=== PATIENT | male | born 1945 | race Caucasian/White ===

== ENCOUNTER → 2020-10-28 12:19 | Outpatient (BNVA) | payer MEDICARE, SELFPAY | PROVIDERS: Visit Provider Internal Medicine Cardiovascular Disease | DX: Z45.02 Encounter for adjustment and management of automatic implantable cardiac defibrillator (principal); I50.22 Chronic systolic (congestive) heart failure; I25.5 Ischemic cardiomyopathy; I25.10 Atherosclerotic heart disease of native coronary artery without angina pectoris; Z95.2 Presence of prosthetic heart valve | CPT/HCPCS: 99212 ==

== ENCOUNTER 2020-11-05 09:36 | Outpatient (REF) | payer MEDICARE, SELFPAY ==
[2020-11-05 10:21] LABS: Hematocrit 36.5 % (42-52); Hemoglobin 11.4 g/dl (14.0-18.0); Mean Corpuscular HGB Conc 31.2 g/dl (31.0-36.0); Mean Corpuscular Hemoglobin 28.8 pg (27.0-33.0); Mean Corpuscular Volume 92.2 fL (80-98); Mean Platelet Volume 9.6 fL (9.4-12.4); Platelet Count 159 X10*3/uL (160-400); Red Blood Count 3.96 X10*6/uL (4.60-5.80); Red Cell Distribution Width 13.7 % (11.0-16.0); White Blood Count 6.8 X10*3/uL (4.8-10.8)
[2020-11-05 10:44] LABS: Alanine Aminotransferase 12 U/L (0-40); Alkaline Phosphatase 133 U/L (39-117); Anion Gap 14 (12-20); Aspartate Amino Transferase 15 U/L (5-37); Bilirubin Direct 0.2 mg/dL (0.0-0.5); Bilirubin Total 0.5 mg/dL (0.0-1.0); Blood Urea Nitrogen 39 mg/dL (9-16); Calcium 8.1 mg/dL (8.4-10.2); Carbon Dioxide 20 mmol/L (22-29); Chloride 112 mmol/L (96-108); Cholesterol 168 mg/dL; Estimated Glomerular Filt Rate 24; Glucose Random 100 mg/dL (60-115); HDL Cholesterol 48 mg/dL; LDL Cholesterol Calculated 97 mg/dl; Potassium 4.8 mmol/l (3.3-5.1); Sodium 141 mmol/L (135-145); Total Protein 7.2 g/dL (6.5-8.0); Triglycerides 117 mg/dL
[2020-11-05 11:23] LABS: Phenytoin Dilantin < 0.5 ug/mL (10.0-20.0)
== END 2020-11-05 09:37 | disposition home or self-care (01) ==
LOC: HO.LAB 09:36
DX: I10 Essential (primary) hypertension (principal); E78.5 Hyperlipidemia, unspecified; R56.9 Unspecified convulsions
CPT/HCPCS: 36415; 80053; 80061; 80076; 80185; 82248; 85027

== ENCOUNTER 2021-03-16 19:40 | Emergency (ER) | payer MEDICARE, SELFPAY ==
[2021-03-16 19:52] VITALS: BP 186/85; PULSE 95; RESP 18; TEMP 37.2; O2SAT 98; BMI 24.3
[2021-03-16 21:28] VITALS: BP 167/87; PULSE 84; RESP 18; TEMP 36.9; O2SAT 98
--- NOTE | 2021-03-16 21:50 | ED.GENADULT ---
HPI - General Adult General Chief complaint: General Medical Stated complaint: Shingles Time Seen by Provider: 03/16/21 21:26 Source: patient Mode of arrival: ambulatory Limitations: no limitations History of Present Illness HPI narrative: Patient comes to emergency room complaining of a vesicular rash in his left forearm. Patient states 4-5 days ago it started out with a small vesicle, then the vesicles started spreading, patient states it is very painful and tingly. Patient denies fever or chills. Related Data Home Medications Medication Instructions Recorded Confirmed aspirin 81 mg tablet,delayed 81 mg PO DAILY 10/28/20 10/28/20 release furosemide 20 mg tablet 20 mg PO DAILY PRN 10/28/20 10/28/20 Previous Rx's Medication Instructions Recorded hydralazine 25 mg tablet 25 mg PO BID #60 tab 10/25/20 metoprolol tartrate 50 mg tablet 50 mg PO BID #180 tab 12/16/20 cholestyramine (with sugar) 4 gram See Rx Instructions PO BID PRN 01/02/21 oral powder #378 g atorvastatin 40 mg tablet 40 mg PO DAILY #90 tab 01/15/21 oxycodone-acetaminophen [Percocet] 1 tab PO TID PRN #10 tab 03/16/21 valacyclovir 1,000 mg PO TID #7 tab 03/16/21 Allergies Allergy/AdvReac Type Severity Reaction Status Date / Time No Known Allergies Allergy Mild NONE Verified 03/16/21 19:52 Review of Systems Review of Systems: Constitutional : No Weight loss, No Fever, No Chills, No Night Sweats, No Fatigue, No Malaise ENT/Mouth : No Hearing loss, No Ear Pain, No Nasal Congestion, No Sinus Pain, No Hoarseness, No sore throat, No Rhinorrhea, No Swallowing Difficulty Eyes: No Eye Pain, No Swelling, No Redness, No Foreign Body, No Discharge, No Vision Changes Cardiovascular : No Chest Pain, No SOB, No Dyspnea on Exertion, No Orthopnea, No Edema, No Palpitations Respiratory : No Cough, No Sputum, No Wheezing, No Smoke Exposure, No Dyspnea Gastrointestinal : No Nausea, No Vomiting, No Diarrhea, No Constipation, No abdominal Pain, No Hematochezia, No Melena Genitourinary : no irregular bleeding, No Dysuria, No Urinary Frequency, No Hematuria, No Urinary Incontinence, No Urgency, No Flank Pain, No Urinary Flow Changes, No Hesitancy Musculoskeletal : No joint pain, No Myalgias, No Joint Swelling Skin : Vesicular and painful rash in left forearm Neuro : No Weakness, No Numbness, No Paresthesias, No Loss of Consciousness, No Dizziness, No Headache Psych : No Anxiety/Panic, No Depression, No SI/HI/AH/VH, No Social Issues, Heme/Lymph: No Bruising, No Bleeding,No Lymphadenopathy Endocrine : No Polyuria, No Polydipsia, No Temperature Intolerance [facility] Past Medical History Medical History CAD (coronary artery disease) Chronic HFrEF (heart failure with reduced ejection fraction) CKD (chronic kidney disease) Congestive heart failure Hypertension ICD (implantable cardioverter-defibrillator) in place Ischemic cardiomyopathy Surgical History S/P CABG x 3 S/P MVR (mitral valve replacement) Family History Family History Father No problems noted. Mother No problems noted. Family/Other CVD (cardiovascular disease) Social History Social History (Updated 12/24/20 @ 15:13 by GERRY Shah) Alcohol intake: current Alcohol intake frequency: a few times a week Smoking Status: Current every day smoker Tobacco Type: Cigarette Advance Directives: No Advance Directives Information Provided: No Physical Exam Vital Signs: Vital Signs: Last Vital Signs Temp 98.5 F 03/16/21 21:28 Pulse 84 03/16/21 21:28 Resp 18 03/16/21 21:28 BP 167/87 H 03/16/21 21:28 Pulse Ox 98 03/16/21 21:28 Body Mass Index 24.3 Appearance: Alert. Oriented X3. No acute distress. Eyes: Pupils equal, round and reactive to light. ENT: Pharynx normal. Neck: Normal inspection. Neck supple. No lymph nodes noted. No crepitus CVS: Normal heart rate and rhythm. Pulses normal. Normal S1 and S2 Respiratory: No respiratory distress. Breath sounds normal. No Wheezing. No rales Abdomen: Soft and nontender. No rigidity. No distention. good BS x4 Skin: Skin warm and dry. Vesicular rash, arm band like in ventral aspect of the left forearm, no cellulitis Extremities: No lower extremity edema. No lower extremity edema. No Lacerations. No Rash Neuro: Oriented X 3. No motor deficit. No sensory deficit. Moving all extermities. No slurred speech. Course Course Course Narrative: I discussed the physical exam with the patient, likely having shingles. Discussed with the patient that the rash is contagious until it crusts. Patient received the 1st dose of acyclovir in the emergency room and tramadol. Discharge Plan Discharge Clinical Impression: Shingles Qualifiers: Herpes zoster complications: without complications Qualified Code(s): B02.9 - Zoster without complications Patient Disposition: Home, Self-Care Instructions: Shingles (ED) Additional Instructions: Please follow-up with your primary care physician tomorrow. If you have any worsening or new symptoms, please return to the emergency room or call 911 Prescriptions: New valacyclovir 1 gram tablet 1,000 mg PO TID Qty: 7 RF: 0 oxycodone-acetaminophen [Percocet] 5-325 mg tablet 1 tab PO TID PRN (Reason: pain) Qty: 10 RF: 0 No Action hydralazine 25 mg tablet 25 mg PO BID Qty: 60 RF: 5 metoprolol tartrate 50 mg tablet 50 mg PO BID Qty: 180 RF: 2 cholestyramine (with sugar) 4 gram powder See Rx Instructions PO BID PRN (Reason: hyperlipidemia) Qty: 378 RF: 8 atorvastatin 40 mg tablet 40 mg PO DAILY Qty: 90 RF: 8 furosemide 20 mg tablet 20 mg PO DAILY PRNRF: 0 aspirin [Adult Low Dose Aspirin] 81 mg tablet,delayed release (DR/EC) 81 mg PO DAILY RF: 0
[2021-03-16] MEDS: traMADoL HCL 50 MG TABLET PO (22:48)
== END 2021-03-16 22:56 | disposition home or self-care (01) ==
PROVIDERS: Emergency Provider Emergency Medicine; PCP Internal Medicine
DX: B02.9 Zoster without complications (principal); Z79.82 Long term (current) use of aspirin; Z79.899 Other long term (current) drug therapy; F17.210 Nicotine dependence, cigarettes, uncomplicated; Z71.6 Tobacco abuse counseling
CPT/HCPCS: 99284

== ENCOUNTER → 2021-04-28 12:25 | Outpatient (BNVA) | payer MEDICARE, SELFPAY | PROVIDERS: PCP Internal Medicine; Referring Provider Internal Medicine; Visit Provider Internal Medicine Cardiovascular Disease | DX: I50.22 Chronic systolic (congestive) heart failure (principal); I25.10 Atherosclerotic heart disease of native coronary artery without angina pectoris; Z95.810 Presence of automatic (implantable) cardiac defibrillator; Z95.2 Presence of prosthetic heart valve; Z79.899 Other long term (current) drug therapy | CPT/HCPCS: 99212 ==

== ENCOUNTER → 2021-05-15 08:56 | Outpatient (BNVA) | payer MEDICARE, SELFPAY | PROVIDERS: PCP Internal Medicine; Referring Provider Internal Medicine; Visit Provider Internal Medicine Cardiovascular Disease ==

== ENCOUNTER 2021-07-08 11:35 | Outpatient (REF) | payer MEDICARE, SELFPAY ==
[2021-07-08 12:33] LABS: Cholesterol 174 mg/dL; HDL Cholesterol 36 mg/dL; LDL Cholesterol Calculated 99 mg/dl; Triglycerides 196 mg/dL
[2021-07-09 14:41] LABS: Lyme Abs Screen <0.90 index
== END 2021-07-08 11:36 | disposition home or self-care (01) ==
LOC: HO.LAB 11:35
PROVIDERS: PCP Internal Medicine; Visit Provider Internal Medicine
DX: E11.9 Type 2 diabetes mellitus without complications (principal); T14.8XXA Other injury of unspecified body region, initial encounter; W57.XXXA Bitten or stung by nonvenomous insect and other nonvenomous arthropods, initial encounter
CPT/HCPCS: 36415; 80061; 86617; 86618

== ENCOUNTER → 2021-07-22 10:06 | Outpatient (REF) | payer MEDICARE, SELFPAY ==
--- NOTE | 2021-07-22 10:09 | CA_ITS ---
Transthoracic Echocardiogram Patient (Last, First, Middle): Andrea Orozco J Gender: Male Date of : 1945 Age: 75 Procedure Date: 07/22/2021 Procedure Type: Transthoracic Echocardiogram Location: OP Height: 172.72 cm Weight: 74.84 kg BSA: 1.88 m2 Heart Rate: bpm BP: 140 / 72 mmHg Lead Sustainability Specialist: NAGI Referring MD: Judd Rojas MD Symptoms: I50.22 - Chronic systolic (congestive) heart failure Study Quality: Fair ECG Rhythm: Sinus Conclusions: - The left ventricular systolic function is moderately decreased. The calculated ejection fraction is 41% by biplane method. - The basal inferior, mid inferior, and basal inferolateral segments are akinetic. - The left atrium is moderately dilated. - A bioprosthetic mitral valve is present. The prosthetic mitral valve appears to be functioning normally. Findings Left Ventricle Normal left ventricular cavity size. There is mildly increased left ventricular wall thickness. The left ventricular systolic function is moderately decreased. The calculated ejection fraction is 41% by biplane method. There is moderate global hypokinesis. Diastolic function is indeterminate on the basis of available data. Wall Motion Rest Echo Findings The basal inferior, mid inferior, and basal inferolateral segments are akinetic. Right Ventricle There is a pacemaker wire seen in the right ventricle. Atria The left atrium is moderately dilated. The right atrium is mildly dilated. Aortic Valve The aortic valve was not well visualized. There is no aortic valve stenosis. The peak aortic gradient is 12 mmHg.There is trace (trivial) aortic valve regurgitation. Mitral Valve A bioprosthetic mitral valve is present. The prosthetic mitral valve appears to be functioning normally. Mean gradient across the mitral valve 7 mm Hg at 60/min. No significant mitral regurgitation. Pulmonic Valve The pulmonic valve was not well visualized. Tricuspid Valve There is trace tricuspid valve regurgitation. The pulmonary artery systolic pressure is normal. Great Vessels There is mild dilatation of the ascending aorta measuring 4.00 cm. Venous The inferior vena cava is normal in size and collapses greater than 50% with inspiration. Pericardium/Pleural There is no evidence of pericardial effusion. Prior Study Comparison Changes noted compared to prior study dated: 06/04/2020. LVEF higher than previously reported. Measurements 2D Linear Measurements IVSd: 1.37 0.6-0.9/0.6-1.0 cm LVIDd: 4.56 3.9-5.3/4.2-5.9 cm LVIDd Index: 2.43 2.4-3.2/2.2-3.1 cm/m2 LVIDs: 3.80 2.0-3.6 cm LVPWd: 1.33 0.7-1.1 cm Ao Root: 3.40 2.1-3.5 cm LA Diam: 4.60 2.7-3.8/3.0-4.0 cm LAIDs Index: 2.45 1.5-2.3 cm/m2 LV Mass: 299.35 67-162/88-224 g LV Mass Index: 159.23 43-95/49-115 g/m2 LVOT Diam: 2.40 3.0+(-)1.3 cm 2D Systolic Function EF 4C: 49.60 >55% EF 2C: 32.10 >55% EF BiP: 40.80 >55% Mitral Valve MV VTI: 0.56 MV Pk Mark: 1.65 MV Mn Mark: 1.25 MV Pk Grad: 11.00 MV Mn Grad: 7.00 MV Pk E: 1.93 MV PK A: 1.64 MV Decel Time: 298.00 E/A: 1.20 E'Lateral: 6.74 E'Medial: 6.09 E/E' Med: 31.70 E/E' Lat: 28.60 PHT: 87.00 MVA PHT: 2.53 MVA Continuity: 1.32 Decel [place]: 6.48 Aortic Valve AoV Pk Mark: 1.75 AoV Pk Grad: 12.00 LVOT LVOT Pk Mark: 0.78 LVOT Mn Mark: 0.49 LVOT VTI: 0.16 LVOT Pk Grad: 2.00 LVOT Mn Grad: 1.00 LVOT Diam: 2.40 LVOT Area: 4.52 Diastolic Function MV Pk E: 1.93 MV Pk A: 1.64 E/A: 1.20 E'Medial: 6.09 E/E' Med: 31.70 E' Laterial: 6.74 E/E' Lat: 28.60 Right Ventricle TAPSE (mm): 2.19 Tricuspid Valve TR Pk Mark: 2.76 TR Pk Grad: 30.00 RA Press: 3.00 RVSP: 33.00 Great Vessels Aorta Ao Root-2D: 3.40 2.0-3.7 cm Ao Asc: 4.00 2.1-3.4 cm Updated in Other Vendor System with Status of Final Luigi Morales MD electronically signed on 07/22/2021 5:16:24 PM with status of Final
== END ==
LOC: HO.CARD 10:06
PROVIDERS: Visit Provider Internal Medicine Cardiovascular Disease
DX: I50.22 Chronic systolic (congestive) heart failure (principal)
CPT/HCPCS: 93306

== ENCOUNTER 2022-01-13 12:34 | Outpatient (REF) | payer MEDICARE, SELFPAY ==
[2022-01-13 14:07] LABS: MANUAL DIFF FLAG NO
[2022-01-13 14:32] LABS: Basophils Percent Auto 0.3 % (0-2); Eosinophils Absolute Auto 0.2 X10*3/uL (0.0-0.4); Eosinophils Percent Auto 2.3 % (0-4); Hematocrit 34.5 % (42.0-52.0); Hemoglobin 10.7 g/dl (14.0-18.0); Imm Gran Pct Auto 2.6 % (0.0-0.4); Lymphocytes Absolute Auto 1.1 X10*3/uL (1.2-4.9); Lymphocytes Percent Auto 14.2 % (20-40); Mean Corpuscular Hemoglobin 29.8 pg (27.0-33.0); Mean Corpuscular Volume 96.1 fL (80.0-98.0); Mean Platelet Volume 9.5 fL (9.4-12.4); Monocytes Absolute Auto 0.7 X10*3/uL (0.1-1.2); Monocytes Percent Auto 8.4 % (2-11); Neutrophils Absolute Auto 5.7 x10*3/uL (2.0-8.3); Neutrophils Percent Auto 72.2 % (45-73); Platelet Count 193 X10*3/uL (160-400); Red Blood Count 3.59 X10*6/uL (4.60-5.80); Red Cell Distribution Width 15.2 % (11.0-16.0); White Blood Count 7.8 X10*3/uL (4.8-10.8)
[2022-01-13 14:56] LABS: Alanine Aminotransferase 12 U/L (0-40); Alkaline Phosphatase 98 U/L (39-117); Anion Gap 14 (12-20); Aspartate Amino Transferase 18 U/L (5-37); Bilirubin Total 0.4 mg/dL (0.0-1.0); Blood Urea Nitrogen 53 mg/dL (9-16); Calcium 7.7 mg/dL (8.4-10.2); Carbon Dioxide 13 mmol/L (22-29); Chloride 117 mmol/L (96-108); Cholesterol 191 mg/dL; Estimated Glomerular Filt Rate 15; Glucose Random 90 mg/dL (60-115); HDL Cholesterol 30 mg/dL; LDL Cholesterol Calculated 99 mg/dl; Potassium 4.8 mmol/L (3.3-5.1); Sodium 139 mmol/L (135-145); Total Protein 7.6 g/dL (6.5-8.0); Triglycerides 314 mg/dL
== END 2022-01-13 12:35 | disposition home or self-care (01) ==
LOC: HO.LAB 12:34
PROVIDERS: PCP Internal Medicine; Referring Provider Internal Medicine; Visit Provider Nurse Practitioner Family
DX: I25.10 Atherosclerotic heart disease of native coronary artery without angina pectoris (principal); I25.5 Ischemic cardiomyopathy; I11.0 Hypertensive heart disease with heart failure; I50.22 Chronic systolic (congestive) heart failure; E78.5 Hyperlipidemia, unspecified; Z95.2 Presence of prosthetic heart valve; Z95.1 Presence of aortocoronary bypass graft; Z95.810 Presence of automatic (implantable) cardiac defibrillator
CPT/HCPCS: 36415; 80053; 80061; 85025; 99212

== ENCOUNTER 2022-03-03 08:41 | Outpatient (REF) | payer MEDICARE, SELFPAY ==
[2022-03-03 08:56] LABS: MANUAL DIFF FLAG NO
[2022-03-03 10:12] LABS: Basophils Absolute Auto 0.1 X10*3/uL (0.0-0.2); Basophils Percent Auto 0.8 % (0-2); Eosinophils Absolute Auto 0.3 X10*3/uL (0.0-0.4); Eosinophils Percent Auto 3.4 % (0-4); Hematocrit 31.2 % (42.0-52.0); Hemoglobin 9.6 g/dl (14.0-18.0); Imm Gran Abs Auto 0.04 X10*3/uL (0.00-0.03); Imm Gran Pct Auto 0.5 % (0.0-0.4); Lymphocytes Percent Auto 11.9 % (20-40); Mean Corpuscular HGB Conc 30.8 g/dl (31.0-36.0); Mean Corpuscular Hemoglobin 30.1 pg (27.0-33.0); Mean Corpuscular Volume 97.8 fL (80.0-98.0); Mean Platelet Volume 10.1 fL (9.4-12.4); Monocytes Absolute Auto 0.5 X10*3/uL (0.1-1.2); Monocytes Percent Auto 6.1 % (2-11); Neutrophils Absolute Auto 6.2 x10*3/uL (2.0-8.3); Neutrophils Percent Auto 77.3 % (45-73); Platelet Count 159 X10*3/uL (160-400); Red Blood Count 3.19 X10*6/uL (4.60-5.80); Red Cell Distribution Width 14.6 % (11.0-16.0)
[2022-03-03 10:29] LABS: Estimated Average Glucose 85 mg/dL; Hemoglobin A1c % 4.6 %
[2022-03-03 10:49] LABS: Alanine Aminotransferase 6 U/L (0-40); Alkaline Phosphatase 87 U/L (39-117); Anion Gap 14 (12-20); Aspartate Amino Transferase 14 U/L (5-37); Bilirubin Total 0.4 mg/dL (0.0-1.0); Blood Urea Nitrogen 45 mg/dL (9-16); Calcium 8.7 mg/dL (8.4-10.2); Carbon Dioxide 18 mmol/L (22-29); Chloride 112 mmol/L (96-108); Cholesterol 176 mg/dL; Estimated Glomerular Filt Rate 18; Glucose Random 98 mg/dL (60-115); HDL Cholesterol 38 mg/dL; LDL Cholesterol Calculated 98 mg/dl; Phosphorus 3.8 mg/dL (2.7-4.5); Potassium 4.7 mmol/L (3.3-5.1); Sodium 139 mmol/L (135-145); Total Protein 7.2 g/dL (6.5-8.0); Triglycerides 200 mg/dL
[2022-03-03 10:53] LABS: Magnesium 1.4 mg/dL (1.6-2.6)
[2022-03-03 11:01] LABS: Uric Acid 6.5 mg/dL (3.4-7.0)
[2022-03-03 11:16] LABS: Creatinine Urine 87.73 mg/dL
[2022-03-03 11:33] LABS: Protein/Creatinine Ratio, Ur 3.92 (<0.2); Total Protein Urine Random 344 mg/dL (<12)
[2022-03-04 14:15] LABS: Calcium (PTHI) 8.5 mg/dL (8.6-10.3); PTHI 260 pg/mL (16-77)
[2022-03-06 22:31] LABS: IgA 233 mg/dL (70-320); IgG 1116 mg/dL (600-1540); IgM 30 mg/dL (50-300)
== END 2022-03-03 08:42 | disposition home or self-care (01) ==
LOC: HO.LAB 08:41
PROVIDERS: PCP Internal Medicine; Visit Provider Internal Medicine Nephrology
DX: I12.0 Hypertensive chronic kidney disease with stage 5 chronic kidney disease or end stage renal disease (principal); N18.5 Chronic kidney disease, stage 5; N17.9 Acute kidney failure, unspecified
CPT/HCPCS: 36415; 80053; 80061; 82306; 82784; 83036; 83735; 83970; 84100; 84156; 84550; 85025; 86334

== ENCOUNTER 2022-06-23 07:23 | Outpatient (REF) | payer MEDICARE, SELFPAY ==
[2022-06-23 07:44] LABS: MANUAL DIFF FLAG NO
[2022-06-23 08:06] LABS: Basophils Percent Auto 0.3 % (0-2); Eosinophils Absolute Auto 0.2 X10*3/uL (0.0-0.4); Eosinophils Percent Auto 3.4 % (0-4); Hematocrit 33.3 % (42.0-52.0); Hemoglobin 10.3 g/dl (14.0-18.0); Imm Gran Abs Auto 0.02 X10*3/uL (0.00-0.03); Imm Gran Pct Auto 0.3 % (0.0-0.4); Lymphocytes Absolute Auto 0.7 X10*3/uL (1.2-4.9); Lymphocytes Percent Auto 10.2 % (20-40); Mean Corpuscular HGB Conc 30.9 g/dl (31.0-36.0); Mean Corpuscular Volume 93.8 fL (80.0-98.0); Mean Platelet Volume 9.5 fL (9.4-12.4); Monocytes Absolute Auto 0.5 X10*3/uL (0.1-1.2); Monocytes Percent Auto 7.7 % (2-11); Neutrophils Absolute Auto 5.3 x10*3/uL (2.0-8.3); Neutrophils Percent Auto 78.1 % (45-73); Platelet Count 129 X10*3/uL (160-400); Red Blood Count 3.55 X10*6/uL (4.60-5.80); Red Cell Distribution Width 13.7 % (11.0-16.0); White Blood Count 6.8 X10*3/uL (4.8-10.8)
[2022-06-23 08:37] LABS: Alanine Aminotransferase 13 U/L (0-40); Albumin Level 3.8 g/dL (3.5-5.0); Alkaline Phosphatase 83 U/L (39-117); Anion Gap 18 (12-20); Aspartate Amino Transferase 15 U/L (5-37); Bilirubin Total 0.4 mg/dL (0.0-1.0); Blood Urea Nitrogen 50 mg/dL (9-16); Calcium 8.1 mg/dL (8.4-10.2); Carbon Dioxide 16 mmol/L (22-29); Chloride 112 mmol/L (96-108); Estimated Glomerular Filt Rate 17; Glucose Random 110 mg/dL (60-115); Magnesium 1.8 mg/dL (1.6-2.6); Phosphorus 5.2 mg/dL (2.7-4.5); Potassium 4.8 mmol/L (3.3-5.1); Sodium 141 mmol/L (135-145); Total Protein 6.8 g/dL (6.5-8.0); Uric Acid 5.4 mg/dL (3.4-7.0)
[2022-06-23 08:58] LABS: Vitamin D 25-OH Total 34.2 ng/mL (>30)
[2022-06-23 09:07] LABS: Total Protein Urine Random 483 mg/dL (<12)
[2022-06-24 11:57] LABS: Calcium (PTHI) 8.4 mg/dL (8.6-10.3); PTHI 211 pg/mL (16-77)
== END 2022-06-23 07:24 | disposition home or self-care (01) ==
LOC: HO.LAB 07:23
PROVIDERS: Internal Medicine Nephrology; PCP Internal Medicine; Visit Provider Anesthesiology
DX: E21.1 Secondary hyperparathyroidism, not elsewhere classified (principal); I50.9 Heart failure, unspecified; I13.10 Hypertensive heart and chronic kidney disease without heart failure, with stage 1 through stage 4 chronic kidney disease, or unspecified chronic kidney disease; N18.30 Chronic kidney disease, stage 3 unspecified; N28.0 Ischemia and infarction of kidney; D63.1 Anemia in chronic kidney disease; R60.0 Localized edema
CPT/HCPCS: 36415; 80053; 82306; 83735; 83970; 84100; 84156; 84550; 85025

== ENCOUNTER → 2022-07-27 12:22 | Outpatient (BNVA) | payer MEDICARE, SELFPAY | PROVIDERS: PCP Internal Medicine; Referring Provider Internal Medicine; Visit Provider Internal Medicine Cardiovascular Disease | DX: I25.10 Atherosclerotic heart disease of native coronary artery without angina pectoris (principal); I25.5 Ischemic cardiomyopathy; Z95.2 Presence of prosthetic heart valve; Z45.02 Encounter for adjustment and management of automatic implantable cardiac defibrillator; Z79.82 Long term (current) use of aspirin; Z79.899 Other long term (current) drug therapy | CPT/HCPCS: 93005; 99212 ==

== ENCOUNTER → 2022-08-14 13:44 | Outpatient (REF) | payer MEDICARE, SELFPAY | LOC: HO.CARD 13:44 | PROVIDERS: Visit Provider Internal Medicine Cardiovascular Disease | DX: Z95.2 Presence of prosthetic heart valve (principal) | CPT/HCPCS: 93306 ==

== ENCOUNTER 2022-10-21 07:48 | Outpatient (REF) | payer MEDICARE, SELFPAY ==
[2022-10-21 08:11] LABS: MANUAL DIFF FLAG NO
[2022-10-21 08:16] LABS: Basophils Absolute Auto 0.1 X10*3/uL (0.0-0.2); Basophils Percent Auto 0.9 % (0-2); Eosinophils Absolute Auto 0.3 X10*3/uL (0.0-0.4); Eosinophils Percent Auto 4.9 % (0-4); Hematocrit 28.8 % (42.0-52.0); Hemoglobin 9.1 g/dl (14.0-18.0); Imm Gran Abs Auto 0.04 X10*3/uL (0.00-0.03); Imm Gran Pct Auto 0.7 % (0.0-0.4); Lymphocytes Absolute Auto 0.8 X10*3/uL (1.2-4.9); Lymphocytes Percent Auto 13.8 % (20-40); Mean Corpuscular HGB Conc 31.6 g/dl (31.0-36.0); Mean Corpuscular Hemoglobin 29.6 pg (27.0-33.0); Mean Corpuscular Volume 93.8 fL (80.0-98.0); Mean Platelet Volume 9.3 fL (9.4-12.4); Monocytes Absolute Auto 0.5 X10*3/uL (0.1-1.2); Monocytes Percent Auto 9.2 % (2-11); Neutrophils Percent Auto 70.5 % (45-73); Platelet Count 120 X10*3/uL (160-400); Red Blood Count 3.07 X10*6/uL (4.60-5.80); Red Cell Distribution Width 13.8 % (11.0-16.0); White Blood Count 5.7 X10*3/uL (4.8-10.8)
[2022-10-21 09:18] LABS: Alanine Aminotransferase 24 U/L (0-40); Albumin Level 3.8 g/dL (3.5-5.0); Alkaline Phosphatase 94 U/L (39-117); Anion Gap 14 (12-20); Aspartate Amino Transferase 23 U/L (5-37); Bilirubin Total 0.4 mg/dL (0.0-1.0); Blood Urea Nitrogen 51 mg/dL (9-16); Calcium 8.1 mg/dL (8.4-10.2); Carbon Dioxide 17 mmol/L (22-29); Chloride 113 mmol/L (96-108); Estimated Glomerular Filt Rate 14; Glucose Random 109 mg/dL (60-115); Magnesium 1.7 mg/dL (1.6-2.6); Phosphorus 4.7 mg/dL (2.7-4.5); Potassium 4.3 mmol/L (3.3-5.1); Sodium 140 mmol/L (135-145); Total Protein 6.5 g/dL (6.5-8.0); Uric Acid 5.5 mg/dL (3.4-7.0); Vitamin D 25-OH Total 37.9 ng/mL (>30)
[2022-10-21 10:47] LABS: Creatinine Urine 93.06 mg/dL; Protein/Creatinine Ratio, Ur 5.42 (<0.2); Total Protein Urine Random 504 mg/dL (<12)
[2022-10-22 15:24] LABS: Calcium (PTHI) 8.2 mg/dL (8.6-10.3); PTHI 267 pg/mL (16-77)
== END 2022-10-21 07:49 | disposition home or self-care (01) ==
LOC: HO.LAB 07:48
PROVIDERS: PCP Internal Medicine; Visit Provider Internal Medicine Nephrology
DX: I12.9 Hypertensive chronic kidney disease with stage 1 through stage 4 chronic kidney disease, or unspecified chronic kidney disease (principal); N18.30 Chronic kidney disease, stage 3 unspecified; I50.9 Heart failure, unspecified; I25.10 Atherosclerotic heart disease of native coronary artery without angina pectoris; R60.0 Localized edema; E21.1 Secondary hyperparathyroidism, not elsewhere classified; N28.0 Ischemia and infarction of kidney; D63.1 Anemia in chronic kidney disease; E78.5 Hyperlipidemia, unspecified; I71.40 Abdominal aortic aneurysm, without rupture, unspecified
CPT/HCPCS: 36415; 80053; 82306; 83735; 83970; 84100; 84156; 84550; 85025

== ENCOUNTER → 2023-04-26 13:39 | Outpatient (BNVA) | payer MEDICARE, SELFPAY | PROVIDERS: PCP Internal Medicine; Referring Provider Internal Medicine; Visit Provider Internal Medicine Cardiovascular Disease | DX: Z45.02 Encounter for adjustment and management of automatic implantable cardiac defibrillator (principal); I50.22 Chronic systolic (congestive) heart failure; I25.10 Atherosclerotic heart disease of native coronary artery without angina pectoris; Z95.2 Presence of prosthetic heart valve | CPT/HCPCS: 99212 ==

== ENCOUNTER → 2023-06-01 23:59 | Outpatient (BNV) | payer MEDICARE, SELFPAY ==
--- NOTE | 2023-06-01 15:50 | A.OFFVIS_ITS ---
Intake Intake Visit Reasons: Remote HF Monitoring- [employer] Allergies No Known Allergies Allergy (Mild, Verified 04/26/23 14:05) NONE PFSH Medical History CAD (coronary artery disease) Chronic HFrEF (heart failure with reduced ejection fraction) CKD (chronic kidney disease) Congestive heart failure Hyperlipidemia Hypertension ICD (implantable cardioverter-defibrillator) in place Ischemic cardiomyopathy Surgical History S/P CABG x 3 S/P MVR (mitral valve replacement) Family History Father No problems noted. Mother No problems noted. Family/Other CVD (cardiovascular disease) Social History Housing: House Alcohol intake: current Alcohol intake frequency: a few times a week Patient Tobacco Use Status: Current everyday Tobacco user Tobacco use type: Cigarette Cigarettes Per Day: 3 e-Cigarette/Vaping Use: Never Used Second Hand Smoke Exposure: No service: No Current occupational status: retired Current occupational exposures/hazards: No Cognitive needs: No Hearing needs: No Vision needs: Yes Office Procedures Cardiac Device Check Cardiac Device Check Details: remote heart failure report generated 06/01/2023. Heart failure logic shows reading of 50 consistent with volume overload. Discussed with patient to start oral diuretic therapy and if gets worse to come to the emergency room [id number] Cardiac Device Interrogation, cardio physiologic monitor Procedure code (CPT) selection complete Coding Level of Care Code Procedure Only Diagnoses CPT Codes Cardiac Device Check - Cardiac Device 15: [id number] Cardiac Device Interrogation, cardio physiologic monitor ([id number])
== END ==
PROVIDERS: PCP Internal Medicine; Visit Provider Internal Medicine Cardiovascular Disease
DX: I50.22 Chronic systolic (congestive) heart failure (principal); Z95.810 Presence of automatic (implantable) cardiac defibrillator
CPT/HCPCS: 93297

== ENCOUNTER 2023-06-08 14:24 | Outpatient (AMB) | payer MEDICARE, SELFPAY ==
--- NOTE | 2023-06-08 14:28 | A.OFFPC_ITS ---
Vital Signs 06/08/23 14:30 Height 5 ft 8 in Weight 151 lb 8 oz BMI 23.0 BP 140/70 H Blood Pressure Location Rt brachial Position Sitting Pulse 57 Pulse Source Pulse Oximeter Pulse Oximetry (%) 96 Oxygen Delivery Method Room Air Intake Visit Reasons: [facility]//Dialysis Intake Note: Patient is here for hospital discharge follow up. Patient was discharged from [facility] on 05/24/23. Director Of Pediatric Rehabilitation Required: No Catering Administrative Assistant: Present Accompanied by: Spouse Allergies No Known Allergies Allergy (Mild, Verified 06/08/23 14:29) NONE Medication List - Last Reconciled 06/08/23 by Emanuel Black MD aspirin (Adult Low Dose Aspirin) 81 mg PO DAILY cholecalciferol (vitamin D3) 50 mcg PO DAILY cholestyramine (with sugar) 4 gram 1 scoop PO 2 times a day PRN; furosemide 20 mg PO DAILY PRN hydralazine 50 mg PO TID magnesium oxide 400 mg PO DAILY metoprolol tartrate 50 mg PO BID rosuvastatin 20 mg PO DAILY 90 days sevelamer carbonate 800 mg PO TID sodium bicarbonate 650 mg PO TID Tobacco use date assessed: 06/08/23 Fall risk assessment: No Falls in past year Last assessed Fall Risk: 06/08/23 Dental Screening Dental Screen Date: 06/08/23 Did you have a dental visit in the last 12 months?: No Did you have a dental problem in the last 6 months where you did not have access to dental care?: No Was dental information given to patient?: No HPI [facility]//Dialysis HPI Details had a shunt for dialysis placed left arm with complications of edema and hematoma; improving but will need dialysis soon [facility] Medical History CAD (coronary artery disease) Chronic HFrEF (heart failure with reduced ejection fraction) CKD (chronic kidney disease) Congestive heart failure Hyperlipidemia Hypertension ICD (implantable cardioverter-defibrillator) in place Ischemic cardiomyopathy Surgical History (Updated 06/08/23 @ 14:35 by GERRY Phillips) History of surgery S/P CABG x 3 S/P MVR (mitral valve replacement) Family History Father No problems noted. Mother No problems noted. Family/Other CVD (cardiovascular disease) Social History Housing: House Alcohol intake: current Alcohol intake frequency: a few times a week Patient Tobacco Use Status: Current everyday Tobacco user Tobacco use type: Cigarette Cigarettes Per Day: 2 e-Cigarette/Vaping Use: Never Used Second Hand Smoke Exposure: Yes service: No Current occupational status: retired Current occupational exposures/hazards: No Cognitive needs: No Hearing needs: No Vision needs: Yes Questionnaire Thrive Questionnaire Date Thrive assessed: 12/17/22 LOULOU-7 AMB Questionnaire LOULOU-7 Date LOULOU - 7 assessed: 12/17/22 Source: Developed by Drs. Shoaib Martell, Li Ness, Yoan Mccartney and colleagues, with an educational emelia from [employer]. Review of Systems Const Denies chills, Denies fatigue, Denies headache(s) and Denies weight loss Eyes Denies change in vision, Denies diplopia and Denies eye pain ENT Denies vertigo, Denies dizziness, Denies headache(s) and Denies nasal discharge Card Denies chest pain, Denies rapid heart rate and Denies dyspnea on exertion Resp Denies chest congestion, Denies cough, Denies pain with cough and Denies dyspnea on exertion GI Denies abdominal pain, Denies hematochezia and Denies change in bowel habits Musc Denies myalgias, Denies arthralgias and Denies joint swelling Skin/Breast Denies lesions and Denies unusual bruising Neuro Denies vertigo, Denies dizziness, Denies headache(s) and Denies focal weakness Endo Denies fatigue Physical exam (Primary Care) Vital Signs: Last Vital Signs Pulse 57 06/08/23 14:30 BP 140/70 H 06/08/23 14:30 Pulse Ox 96 06/08/23 14:30 Oxygen Delivery Method Room Air 06/08/23 14:30 BMI result Body Mass Index 23.0 Tobacco/Smoking Status: Tobacco use Status Tobacco use date assessed 06/08/23 06/08/23 14:36 Patient Tobacco Use Status Current everyday Tobacco 06/08/23 14:36 Tobacco use type Cigarette 06/08/23 14:36 e-Cigarette/Vaping Use Never Used 06/08/23 14:36 Thrive Assessment: Date of Thrive Assessment Date Thrive assessed 12/17/22 06/08/23 14:36 Const General: cooperative, healthy appearing and no acute distress Orientation/consciousness: oriented to person, oriented to place and oriented to time HENMT Head: Yes normal to inspection, Yes normocephalic and Yes atraumatic Mouth: Normal oral and palatal mucosa present and tongue normal Throat: Yes posterior oropharynx normal and Yes uvula midline Eyes General: appearance normal, both eyes and all related structures Neck Neck: Yes normal visual inspection, Yes full ROM and Yes no lymphadenopathy Thyroid: Thyroid normal Carotids: normal carotid upstroke Chest Chest palpation & inspection: normal inspection of the chest Resp Effort & Inspection: normal respiratory effort and able to speak in complete sentences Auscultation: clear to auscultation bilaterally Cardio Jugular venous distension: no JVD Palpation: normal PMI Rate: regular rate Rhythm: regular rhythm Heart sounds: S1 normal heart sound present and S2 normal heart sound present GI Inspection: Yes normal to inspection Palpation (GI): Soft to palpation and No hepatosplenomegaly present Auscultation: normal bowel sounds General: Yes no CVA tenderness Back/Spine/Pelvis Back: no CVA tenderness Skin General skin exam: no rashes or lesions noted Neuro General: oriented to person, oriented to place and oriented to time Extrem General: Yes normal to inspection and Yes full ROM Assessment and Plan Assessment & Plan (1) Chronic renal failure: Code(s): N18.9 - Chronic kidney disease, unspecified Plan: per nephrology (2) Hypertension: Code(s): I10 - Essential (primary) hypertension Plan: stable (3) Chronic HFrEF (heart failure with reduced ejection fraction): Code(s): I50.22 - Chronic systolic (congestive) heart failure Plan: percardiology Coding Level of Care Code Est Pt Level 4 (00681) Diagnoses Chronic renal failure N18.9 Hypertension I10 Chronic HFrEF (heart failure with reduced ejection fraction) I50.22
[2023-06-08 14:30] VITALS: BP 140/70; PULSE 57; O2SAT 96; BMI 23.0
== END 2023-06-08 15:27 | disposition home or self-care (01) ==
PROVIDERS: PCP Internal Medicine; Visit Provider Internal Medicine
DX: I13.0 Hypertensive heart and chronic kidney disease with heart failure and stage 1 through stage 4 chronic kidney disease, or unspecified chronic kidney disease (principal); N18.9 Chronic kidney disease, unspecified; I50.22 Chronic systolic (congestive) heart failure
CPT/HCPCS: 99214

== ENCOUNTER 2023-06-15 11:00 | Outpatient (REF) | payer MEDICARE, SELFPAY ==
[2023-06-15 13:05] LABS: Cholesterol 131 mg/dL; HDL Cholesterol 41 mg/dL; LDL Cholesterol Calculated 67 mg/dl; Triglycerides 115 mg/dL
== END 2023-06-15 11:01 | disposition home or self-care (01) ==
LOC: HO.LAB 11:00
PROVIDERS: Internal Medicine Cardiovascular Disease; PCP Internal Medicine; Visit Provider Nurse Practitioner Family
DX: I25.10 Atherosclerotic heart disease of native coronary artery without angina pectoris (principal)
CPT/HCPCS: 36415; 80061

== ENCOUNTER 2023-06-25 10:03 | Outpatient (AMB) | payer MEDICARE, SELFPAY ==
[2023-06-25 10:05] VITALS: BP 144/60; PULSE 50; O2SAT 98; BMI 21.5
--- NOTE | 2023-06-25 10:05 | A.OFFPC_ITS ---
Vital Signs 06/25/23 10:05 Height 5 ft 8 in Weight 141 lb 2 oz BMI 21.5 BP 144/60 H Blood Pressure Location Lt brachial Position Sitting Pulse 50 Pulse Source Pulse Oximeter Pulse Oximetry (%) 98 Oxygen Delivery Method Room Air Intake Visit Reasons: PE Intake Note: Patient is here today for a physical. Technology Resource Teacher Required: No Accompanied by: Spouse Allergies No Known Allergies Allergy (Mild, Verified 06/25/23 10:10) NONE Medication List - Last Reconciled 06/28/23 by Emanuel Black MD aspirin (Adult Low Dose Aspirin) 81 mg PO DAILY cholecalciferol (vitamin D3) 50 mcg PO DAILY cholestyramine (with sugar) 4 gram 1 scoop PO 2 times a day PRN; furosemide 20 mg orally 40mg in the AM and 20mg at lunch time; hydralazine 50 mg PO TID magnesium oxide 400 mg PO DAILY metoprolol tartrate 50 mg PO BID rosuvastatin 20 mg PO DAILY 90 days Tobacco use date assessed: 06/08/23 Fall risk assessment: No Falls in past year Last assessed Fall Risk: 06/25/23 Dental Screening Dental Screen Date: 06/25/23 Did you have a dental visit in the last 12 months?: No Did you have a dental problem in the last 6 months where you did not have access to dental care?: No Was dental information given to patient?: Patient declined HPI PE HPI Details renal failure HTN and CAD with CHF; has a fistula in place and will be starting HD [facility] Medical History (Updated 06/28/23 @ 11:48 by Emanuel Black MD) CAD (coronary artery disease) Chronic HFrEF (heart failure with reduced ejection fraction) CKD (chronic kidney disease) Congestive heart failure Hyperlipidemia Hypertension ICD (implantable cardioverter-defibrillator) in place Ischemic cardiomyopathy Surgical History History of surgery S/P CABG x 3 S/P MVR (mitral valve replacement) Family History Father No problems noted. Mother No problems noted. Family/Other CVD (cardiovascular disease) Social History Housing: House Alcohol intake: current Alcohol intake frequency: a few times a week Patient Tobacco Use Status: Current everyday Tobacco user Tobacco use type: Cigarette Cigarettes Per Day: 2 e-Cigarette/Vaping Use: Never Used Second Hand Smoke Exposure: Yes service: No Current occupational status: retired Current occupational exposures/hazards: No Cognitive needs: No Hearing needs: No Vision needs: Yes Questionnaire Thrive Questionnaire Date Thrive assessed: 12/17/22 LOULOU-7 AMB Questionnaire LOULOU-7 Date LOULOU - 7 assessed: 12/17/22 Source: Developed by Drs. Shoaib Martell, Li Ness, Yoan Mccartney and colleagues, with an educational emelia from [employer]. Review of Systems Const Denies chills, Denies fatigue, Denies headache(s) and Denies weight loss Eyes Denies change in vision, Denies diplopia and Denies eye pain ENT Denies vertigo, Denies dizziness, Denies headache(s) and Denies nasal discharge Card Denies chest pain, Denies rapid heart rate and Denies dyspnea on exertion Resp Denies chest congestion, Denies cough, Denies pain with cough and Denies dyspnea on exertion GI Denies abdominal pain, Denies hematochezia and Denies change in bowel habits Musc Denies myalgias, Denies arthralgias and Denies joint swelling Skin/Breast Denies lesions and Denies unusual bruising Neuro Denies vertigo, Denies dizziness, Denies headache(s) and Denies focal weakness Endo Denies fatigue Physical exam (Primary Care) Vital Signs: Last Vital Signs Pulse 50 06/25/23 10:05 BP 144/60 H 06/25/23 10:05 Pulse Ox 98 06/25/23 10:05 Oxygen Delivery Method Room Air 06/25/23 10:05 BMI result Body Mass Index 21.5 Tobacco/Smoking Status: Tobacco use Status Tobacco use date assessed 06/08/23 06/25/23 10:06 Patient Tobacco Use Status Current everyday Tobacco 06/25/23 10:06 Tobacco use type Cigarette 06/25/23 10:06 e-Cigarette/Vaping Use Never Used 06/25/23 10:06 Thrive Assessment: Date of Thrive Assessment Date Thrive assessed 12/17/22 06/25/23 10:06 Advance Care Planning discussion: On file, no changes Forms completed: Health Care Proxy Const General: cooperative, healthy appearing and no acute distress Orientation/consciousness: oriented to person, oriented to place and oriented to time HENMT Head: Yes normal to inspection, Yes normocephalic and Yes atraumatic Mouth: Normal oral and palatal mucosa present and tongue normal Throat: Yes posterior oropharynx normal and Yes uvula midline Eyes General: appearance normal, both eyes and all related structures Neck Neck: Yes normal visual inspection, Yes full ROM and Yes no lymphadenopathy Thyroid: Thyroid normal Carotids: normal carotid upstroke Chest Chest palpation & inspection: normal inspection of the chest Resp Effort & Inspection: normal respiratory effort and able to speak in complete sentences Auscultation: clear to auscultation bilaterally Cardio Jugular venous distension: no JVD Palpation: normal PMI Rate: regular rate Rhythm: regular rhythm Heart sounds: S1 normal heart sound present and S2 normal heart sound present GI Inspection: Yes normal to inspection Palpation (GI): Soft to palpation and No hepatosplenomegaly present Auscultation: normal bowel sounds General: Yes no CVA tenderness Back/Spine/Pelvis Back: no CVA tenderness Skin General skin exam: no rashes or lesions noted Neuro General: oriented to person, oriented to place and oriented to time Extrem General: Yes normal to inspection and Yes full ROM Assessment and Plan Assessment & Plan (1) Physical exam: Code(s): Z00.00 - Encounter for general adult medical examination without abnormal findings Plan: do labs (2) Chronic renal failure: Code(s): N18.9 - Chronic kidney disease, unspecified Plan: per renal (3) Hypertension: Code(s): I10 - Essential (primary) hypertension Plan: stable; same rx (4) Chronic HFrEF (heart failure with reduced ejection fraction): Code(s): I50.22 - Chronic systolic (congestive) heart failure Plan: as per card Coding Level of Care Code Est Pt Prev Care >65y(25579) Diagnoses Physical exam Z00.00 Chronic renal failure N18.9 Hypertension I10 Chronic HFrEF (heart failure with reduced ejection fraction) I50.22 Additional Codes Vital Signs *Quality* - Advance Care Planning discussion: On file, no changes ([id number])
== END 2023-06-25 10:53 | disposition home or self-care (01) ==
PROVIDERS: PCP Internal Medicine; Visit Provider Internal Medicine
DX: Z00.00 Encounter for general adult medical examination without abnormal findings (principal); I12.9 Hypertensive chronic kidney disease with stage 1 through stage 4 chronic kidney disease, or unspecified chronic kidney disease; N18.9 Chronic kidney disease, unspecified; I50.22 Chronic systolic (congestive) heart failure
CPT/HCPCS: 1123F; 99397

== ENCOUNTER 2023-07-06 07:39 | Outpatient (REF) | payer MEDICARE, SELFPAY ==
[2023-07-06 08:48] LABS: Anion Gap 15 (12-20); Blood Urea Nitrogen 66 mg/dL (9-16); Calcium 8.2 mg/dL (8.4-10.2); Carbon Dioxide 15 mmol/L (22-29); Chloride 112 mmol/L (96-108); Glucose Random 100 mg/dL (60-115); Potassium 4.4 mmol/L (3.3-5.1); Sodium 138 mmol/L (135-145)
[2023-07-06 08:49] LABS: B Type Natriuretic Peptide 3220 pg/mL (<100)
[2023-07-06 10:30] LABS: Estimated Glomerular Filt Rate 10
== END 2023-07-06 07:40 | disposition home or self-care (01) ==
LOC: HO.LAB 07:39
PROVIDERS: PCP Internal Medicine; Visit Provider Nurse Practitioner Family
DX: I50.22 Chronic systolic (congestive) heart failure (principal)
CPT/HCPCS: 36415; 80048; 83880

== ENCOUNTER → 2023-07-06 23:59 | Outpatient (BNV) | payer MEDICARE, SELFPAY ==
--- NOTE | 2023-07-08 11:31 | MHC.OFFVIS ---
Intake Intake Visit Reasons: Remote HF monitoring- [employer] Allergies No Known Allergies Allergy (Mild, Verified 06/25/23 10:10) NONE PFSH Medical History (Updated 06/28/23 @ 11:48 by Emanuel Black MD) CAD (coronary artery disease) Chronic HFrEF (heart failure with reduced ejection fraction) CKD (chronic kidney disease) Congestive heart failure Hyperlipidemia Hypertension ICD (implantable cardioverter-defibrillator) in place Ischemic cardiomyopathy Surgical History History of surgery S/P CABG x 3 S/P MVR (mitral valve replacement) Family History Father No problems noted. Mother No problems noted. Family/Other CVD (cardiovascular disease) Social History Housing: House Alcohol intake: current Alcohol intake frequency: a few times a week Patient Tobacco Use Status: Current everyday Tobacco user Tobacco use type: Cigarette Cigarettes Per Day: 2 e-Cigarette/Vaping Use: Never Used Second Hand Smoke Exposure: Yes service: No Current occupational status: retired Current occupational exposures/hazards: No Cognitive needs: No Hearing needs: No Vision needs: Yes Office Procedures Cardiac Device Check Cardiac Device Check Details: Remote heart failure report generated 07/06/2023. Heart failure parameters are still elevated but downtrending. Will follow with patient clinically [id number] Cardiac Device Interrogation, cardio physiologic monitor Procedure code (CPT) selection complete Coding Level of Care Code Procedure Only Diagnoses CPT Codes Cardiac Device Check - Cardiac Device 15: [id number] Cardiac Device Interrogation, cardio physiologic monitor ([id number])
== END ==
PROVIDERS: PCP Internal Medicine; Visit Provider Internal Medicine Cardiovascular Disease
DX: I50.22 Chronic systolic (congestive) heart failure (principal); Z95.810 Presence of automatic (implantable) cardiac defibrillator
CPT/HCPCS: 93297

== ENCOUNTER → 2023-07-06 23:59 | Outpatient (BNV) | payer MEDICARE, SELFPAY ==
--- NOTE | 2023-07-08 11:30 | MHC.OFFVIS ---
Intake Intake Visit Reasons: Remote ICD monitoring- [employer] Allergies No Known Allergies Allergy (Mild, Verified 06/25/23 10:10) NONE PFSH Medical History (Updated 06/28/23 @ 11:48 by Emanuel Black MD) CAD (coronary artery disease) Chronic HFrEF (heart failure with reduced ejection fraction) CKD (chronic kidney disease) Congestive heart failure Hyperlipidemia Hypertension ICD (implantable cardioverter-defibrillator) in place Ischemic cardiomyopathy Surgical History History of surgery S/P CABG x 3 S/P MVR (mitral valve replacement) Family History Father No problems noted. Mother No problems noted. Family/Other CVD (cardiovascular disease) Social History Housing: House Alcohol intake: current Alcohol intake frequency: a few times a week Patient Tobacco Use Status: Current everyday Tobacco user Tobacco use type: Cigarette Cigarettes Per Day: 2 e-Cigarette/Vaping Use: Never Used Second Hand Smoke Exposure: Yes service: No Current occupational status: retired Current occupational exposures/hazards: No Cognitive needs: No Hearing needs: No Vision needs: Yes Office Procedures Cardiac Device Check Cardiac Device Check Details: Remote ICD report generated 07/06/2023. ICD function is adequate [id number] Cardiac Interrogation, implant defibrillator w/interim Procedure code (CPT) selection complete Coding Level of Care Code Procedure Only Diagnoses CPT Codes Cardiac Device Check - Cardiac Device 13: [id number] Cardiac Interrogation, implant defibrillator w/interim ([id number])
== END ==
PROVIDERS: PCP Internal Medicine; Visit Provider Internal Medicine Cardiovascular Disease
DX: I25.5 Ischemic cardiomyopathy (principal); Z95.810 Presence of automatic (implantable) cardiac defibrillator
CPT/HCPCS: 93295

== ENCOUNTER → 2023-08-10 23:59 | Outpatient (BNV) | payer MEDICARE, SELFPAY ==
--- NOTE | 2023-08-10 13:48 | MHC.OFFVIS ---
Intake Intake Visit Reasons: Remote HF Monitoring- [employer] Allergies No Known Allergies Allergy (Mild, Verified 06/25/23 10:10) NONE PFSH Medical History (Updated 06/28/23 @ 11:48 by Emanuel Black MD) Hyperlipidemia Hypertension CKD (chronic kidney disease) Chronic HFrEF (heart failure with reduced ejection fraction) ICD (implantable cardioverter-defibrillator) in place CAD (coronary artery disease) Ischemic cardiomyopathy Congestive heart failure Surgical History History of surgery S/P CABG x 3 S/P MVR (mitral valve replacement) Family History Father No problems noted. Mother No problems noted. Family/Other CVD (cardiovascular disease) Social History Housing: House Alcohol intake: current Alcohol intake frequency: a few times a week Patient Tobacco Use Status: Current everyday Tobacco user Tobacco use type: Cigarette Cigarettes Per Day: 2 e-Cigarette/Vaping Use: Never Used Second Hand Smoke Exposure: Yes service: No Current occupational status: retired Current occupational exposures/hazards: No Cognitive needs: No Hearing needs: No Vision needs: Yes Office Procedures Cardiac Device Check Cardiac Device Check Details: Remote heart failure report generated 08/09/2023. Heart failure logic suggest elevated filling pressures. Will follow-up with patient. [id number] Cardiac Device Interrogation, cardio physiologic monitor Procedure code (CPT) selection complete Coding Level of Care Code Procedure Only CPT Codes Cardiac Device Check - Cardiac Device 15: [id number] Cardiac Device Interrogation, cardio physiologic monitor ([id number])
== END ==
PROVIDERS: PCP Internal Medicine; Visit Provider Internal Medicine Cardiovascular Disease
DX: I50.22 Chronic systolic (congestive) heart failure (principal); Z95.810 Presence of automatic (implantable) cardiac defibrillator
CPT/HCPCS: 93297

== ENCOUNTER → 2023-09-14 23:59 | Outpatient (BNV) | payer MEDICARE, SELFPAY ==
--- NOTE | 2023-09-15 15:42 | MHC.OFFVIS ---
Intake Intake Visit Reasons: Remote HF Monitoring- [employer] Allergies No Known Allergies Allergy (Mild, Verified 06/25/23 10:10) NONE PFSH Medical History (Updated 06/28/23 @ 11:48 by Emanuel Black MD) Hyperlipidemia Hypertension CKD (chronic kidney disease) Chronic HFrEF (heart failure with reduced ejection fraction) ICD (implantable cardioverter-defibrillator) in place CAD (coronary artery disease) Ischemic cardiomyopathy Congestive heart failure Surgical History History of surgery S/P CABG x 3 S/P MVR (mitral valve replacement) Family History Father No problems noted. Mother No problems noted. Family/Other CVD (cardiovascular disease) Social History Housing: House Alcohol intake: current Alcohol intake frequency: a few times a week Patient Tobacco Use Status: Current everyday Tobacco user Tobacco use type: Cigarette Cigarettes Per Day: 2 e-Cigarette/Vaping Use: Never Used Second Hand Smoke Exposure: Yes service: No Current occupational status: retired Current occupational exposures/hazards: No Cognitive needs: No Hearing needs: No Vision needs: Yes Office Procedures Cardiac Device Check Cardiac Device Check Details: Remote heart failure report generated 09/14/2023. Heart failure index is elevated. Will follow-up with patient. [id number] Cardiac Device Interrogation, cardio physiologic monitor Procedure code (CPT) selection complete Coding Level of Care Code Procedure Only CPT Codes Cardiac Device Check - Cardiac Device 15: [id number] Cardiac Device Interrogation, cardio physiologic monitor ([id number])
== END ==
PROVIDERS: PCP Internal Medicine; Visit Provider Internal Medicine Cardiovascular Disease
DX: I50.22 Chronic systolic (congestive) heart failure (principal); Z95.810 Presence of automatic (implantable) cardiac defibrillator
CPT/HCPCS: 93297

== ENCOUNTER → 2023-09-16 08:49 | Outpatient (REF) | payer MEDICARE, SELFPAY ==
--- NOTE | 2023-09-16 08:51 | CA_ITS ---
Transthoracic Echocardiogram Patient (Last, First, Middle): Andrea Orozco J Gender: Male Date of : 1945 Age: 78 Procedure Date: 09/16/2023 Procedure Type: Transthoracic Echocardiogram Location: OP Height: 170.18 cm Weight: 62.14 kg BSA: 1.72 m2 Heart Rate: bpm BP: 124 / 69 mmHg Soft Water Mechanic: ALEKSEY Referring MD: Judd Rojas MD Inventory Planner: Judd Rojas MD Symptoms: I50.22 - Chronic systolic (congestive) heart failure Study Quality: Adequate ECG Rhythm: Sinus Conclusions: - 1. Mildly dilated left ventricle with moderate to severe LV systolic dysfunction with LVEF of 30 35% with pseudonormal filling pattern 2. Severely dilated left atrium 3. Reduced RV systolic function 4. Normally function bioprosthetic mitral valve with mean gradient of 4 mmHg 5. Mild aortic regurgitation stenosis 6. Normal RV systolic pressure 7. Mildly dilated ascending aorta 8. No pericardial effusion Findings Left Ventricle Mildly increased left ventricular cavity size. There is mildly increased left ventricular wall thickness. The left ventricular systolic function is moderate to severely decreased. The visually estimated ejection fraction is between 30-35%. Spectral Doppler is indicative of a pseudonormal filling pattern. Right Ventricle Mildly increased right ventricular cavity size. There is mild to moderately decreased right ventricular systolic function. There is an ICD wire seen in the right ventricle. Atria The left atrium is severely dilated. There is no evidence of interatrial shunt. The right atrium is moderately dilated. A pacemaker wire is identified in the right atrium. Aortic Valve There is moderate calcification of the aortic valve. There is mild thickening of the aortic valve. There is mild aortic valve stenosis. There is mild aortic valve regurgitation. Mitral Valve A bioprosthetic mitral valve is present. The prosthetic mitral valve appears to be functioning normally. There is no mitral valve regurgitation. no valve is well seated with no abnormal rocking motion. The mean gradient is 4 mm Hg which appears to be within acceptable limits Pulmonic Valve The pulmonic valve was not well visualized. Tricuspid Valve Normal tricuspid valve structure. There is mild tricuspid valve regurgitation. The right ventricular systolic pressure is normal. The right ventricular systolic pressure is 27 mmHg. Normal right atrial pressure. There is no evidence of pulmonary hypertension. Great Vessels The pulmonary artery was not well visualized. There is mild dilatation of the ascending aorta measuring 4.10 cm. Venous The inferior vena cava is normal in size and collapses greater than 50% with inspiration. Pericardium/Pleural There is no evidence of pericardial effusion. Prior Study Comparison Changes noted compared to prior study dated: 08/14/2022. LV systolic function is marginally reduced Measurements 2D Linear Measurements IVSd: 1.45 0.6-0.9/0.6-1.0 cm LVIDd: 5.65 3.9-5.3/4.2-5.9 cm LVIDd Index: 3.28 2.4-3.2/2.2-3.1 cm/m2 LVIDs: 5.09 2.0-3.6 cm LVPWd: 1.12 0.7-1.1 cm LA Diam: 4.80 2.7-3.8/3.0-4.0 cm LAIDs Index: 2.79 1.5-2.3 cm/m2 LV Mass: 390.05 67-162/88-224 g LV Mass Index: 226.77 43-95/49-115 g/m2 LVOT Diam: 2.40 3.0+(-)1.3 cm 2D Systolic Function EF 4C: 37.90 >55% EF 2C: 33.50 >55% EF BiP: 34.50 >55% Mitral Valve MV VTI: 0.57 MV Pk Mark: 1.58 MV Mn Mark: 0.91 MV Pk Grad: 10.00 MV Mn Grad: 4.00 MV Pk E: 1.33 MV PK A: 0.97 MV Decel Time: 447.00 E/A: 1.40 E'Lateral: 6.42 E'Medial: 4.13 E/E' Med: 32.20 E/E' Lat: 20.70 PHT: 131.00 MVA PHT: 1.68 MVA Continuity: 1.13 Decel [place]: 2.97 Aortic Valve AoV Pk Mark: 1.68 AoV Mn Mark: 1.13 AoV VTI: 0.37 AoV Pk Grad: 11.00 Aov Mn Grad: 6.00 DAYANA Cont.VTI: 1.75 LVOT LVOT Pk Mark: 0.75 LVOT Mn Mark: 0.50 LVOT VTI: 0.14 LVOT Pk Grad: 2.00 LVOT Mn Grad: 1.00 LVOT Diam: 2.40 LVOT Area: 4.52 Diastolic Function MV Pk E: 1.33 MV Pk A: 0.97 E/A: 1.40 E'Medial: 4.13 E/E' Med: 32.20 E' Laterial: 6.42 E/E' Lat: 20.70 Right Ventricle TAPSE (mm): 15.20 TVS' Mark: 7.72 Tricuspid Valve TR Pk Mark: 2.46 TR Pk Grad: 24.00 RA Press: 3.00 RVSP: 27.00 Great Vessels Aorta Sinus of Valsalva: 4.02 2.0-3.[address] [place]: 2.80 1.7-3.4 cm Ao Asc: 4.10 2.1-3.4 cm Updated in Other Vendor System with Status of Final Judd Rojas MD electronically signed on 09/17/2023 4:47:39 PM with status of Final
== END ==
LOC: HO.CARD 08:49
PROVIDERS: PCP Internal Medicine; Visit Provider Internal Medicine Cardiovascular Disease
DX: I50.22 Chronic systolic (congestive) heart failure (principal); Z95.2 Presence of prosthetic heart valve
CPT/HCPCS: 93306

== ENCOUNTER → 2023-09-16 08:51 | Outpatient (BNV) | payer MEDICARE, SELFPAY | PROVIDERS: PCP Internal Medicine; Visit Provider Internal Medicine Cardiovascular Disease | DX: I35.2 Nonrheumatic aortic (valve) stenosis with insufficiency (principal) | CPT/HCPCS: 93306 ==

== ENCOUNTER → 2023-10-19 23:59 | Outpatient (BNV) | payer MEDICARE, SELFPAY ==
--- NOTE | 2023-10-19 15:51 | MHC.OFFVIS ---
Intake Intake Visit Reasons: Remote HF Monitoring- [employer] Allergies No Known Allergies Allergy (Mild, Verified 06/25/23 10:10) NONE PFSH Medical History (Updated 06/28/23 @ 11:48 by Emanuel Black MD) Hyperlipidemia Hypertension CKD (chronic kidney disease) Chronic HFrEF (heart failure with reduced ejection fraction) ICD (implantable cardioverter-defibrillator) in place CAD (coronary artery disease) Ischemic cardiomyopathy Congestive heart failure Surgical History History of surgery S/P CABG x 3 S/P MVR (mitral valve replacement) Family History Father No problems noted. Mother No problems noted. Family/Other CVD (cardiovascular disease) Social History Housing: House Alcohol intake: current Alcohol intake frequency: a few times a week Patient Tobacco Use Status: Current everyday Tobacco user Tobacco use type: Cigarette Cigarettes Per Day: 2 e-Cigarette/Vaping Use: Never Used Second Hand Smoke Exposure: Yes service: No Current occupational status: retired Current occupational exposures/hazards: No Cognitive needs: No Hearing needs: No Vision needs: Yes Office Procedures Cardiac Device Check Cardiac Device Check Details: Remote heart failure report shows heart logic score of 0 weight stable heart failure parameters. Report was generated on 10/19/2023 [id number] Cardiac Device Interrogation, cardio physiologic monitor Procedure code (CPT) selection complete Assessment & Plan Assessment & Plan (1) ICD (implantable cardioverter-defibrillator) in place: Comment: Single-chamber [employer] ICD for primary prevention Code(s): Z95.810 - Presence of automatic (implantable) cardiac defibrillator Plan: See above Coding Level of Care Code Procedure Only Diagnoses ICD (implantable cardioverter-defibrillator) in place Z95.810 CPT Codes Cardiac Device Check - Cardiac Device 15: [id number] Cardiac Device Interrogation, cardio physiologic monitor ([id number])
== END ==
PROVIDERS: PCP Internal Medicine; Visit Provider Internal Medicine Cardiovascular Disease
DX: I50.22 Chronic systolic (congestive) heart failure (principal); Z95.810 Presence of automatic (implantable) cardiac defibrillator
CPT/HCPCS: 93297

== ENCOUNTER → 2023-10-19 23:59 | Outpatient (BNV) | payer MEDICARE, SELFPAY ==
--- NOTE | 2023-10-19 15:55 | A.OFFVIS_ITS ---
Intake Intake Visit Reasons: Remote ICD Check- [place] [employer] Allergies No Known Allergies Allergy (Mild, Verified 06/25/23 10:10) NONE PFSH Medical History (Updated 06/28/23 @ 11:48 by Emanuel Black MD) Hyperlipidemia Hypertension CKD (chronic kidney disease) Chronic HFrEF (heart failure with reduced ejection fraction) ICD (implantable cardioverter-defibrillator) in place CAD (coronary artery disease) Ischemic cardiomyopathy Congestive heart failure Surgical History History of surgery S/P CABG x 3 S/P MVR (mitral valve replacement) Family History Father No problems noted. Mother No problems noted. Family/Other CVD (cardiovascular disease) Social History Housing: House Alcohol intake: current Alcohol intake frequency: a few times a week Patient Tobacco Use Status: Current everyday Tobacco user Tobacco use type: Cigarette Cigarettes Per Day: 2 e-Cigarette/Vaping Use: Never Used Second Hand Smoke Exposure: Yes service: No Current occupational status: retired Current occupational exposures/hazards: No Cognitive needs: No Hearing needs: No Vision needs: Yes Office Procedures Cardiac Device Check Cardiac Device Check Details: Remote ICD report generated 10/19/2023. Noted multiple episode nonsustained VT which unrevealing the GM appeared to be artifactual related to lead noise. Will review the ICD in person. Otherwise ICD function appears adequate [id number] Cardiac Interrogation, implant defibrillator w/interim Procedure code (CPT) selection complete Assessment & Plan Assessment & Plan (1) ICD (implantable cardioverter-defibrillator) in place: Comment: Single-chamber [place] [employer] ICD for primary prevention Code(s): Z95.810 - Presence of automatic (implantable) cardiac defibrillator Plan: See above Coding Level of Care Code Procedure Only Diagnoses ICD (implantable cardioverter-defibrillator) in place Z95.810 CPT Codes Cardiac Device Check - Cardiac Device 13: [id number] Cardiac Interrogation, implant defibrillator w/interim ([id number])
== END ==
PROVIDERS: PCP Internal Medicine; Visit Provider Internal Medicine Cardiovascular Disease
DX: I25.5 Ischemic cardiomyopathy (principal); Z95.810 Presence of automatic (implantable) cardiac defibrillator
CPT/HCPCS: 93295

== ENCOUNTER → 2023-10-25 12:16 | Outpatient (BNVA) | payer MEDICARE, SELFPAY | PROVIDERS: PCP Internal Medicine; Visit Provider Internal Medicine Cardiovascular Disease | DX: Z45.02 Encounter for adjustment and management of automatic implantable cardiac defibrillator (principal); I50.22 Chronic systolic (congestive) heart failure; I25.10 Atherosclerotic heart disease of native coronary artery without angina pectoris; Z95.2 Presence of prosthetic heart valve | CPT/HCPCS: 93005; 99212 ==

== ENCOUNTER 2023-10-25 12:17 | Outpatient (AMB) | payer MEDICARE, SELFPAY ==
[2023-10-25 12:41] VITALS: BP 136/60; PULSE 65; BMI 19.8
--- NOTE | 2023-10-25 12:41 | MHC.OFFVIS ---
Intake Vital Signs 10/25/23 12:41 Height 5 ft 8 in Weight 130 lb 1.164 oz BMI 19.8 BP 136/60 Blood Pressure Location Lt brachial Position Sitting Pulse 65 Intake Visit Reasons: 6 mth [employer] Intake Note: 6 month follow-up with [employer] and ekg feeling good Jewelry Racker Required: No Desk Operator: Desk Operator Present Accompanied by: Spouse Allergies No Known Allergies Allergy (Mild, Verified 06/25/23 10:10) NONE Medication List - Last Reconciled 10/25/23 by Judd Rojas MD aspirin (Adult Low Dose Aspirin) 81 mg PO DAILY calcium carbonate (Calcium Antacid) mg PO TID furosemide 80 mg PO ONCE magnesium oxide 400 mg PO DAILY metoprolol tartrate 50 mg PO BID rosuvastatin 20 mg PO DAILY 90 days sevelamer carbonate 1,600 mg PO BID tramadol 50 mg PO TID PRN HPI HPI Comments History of Present Illness Details Andrea comes for follow-up for his congestive heart failure. Unfortunately he had a lot of complication with his right AV fistula graft with recurrent lymphocele and then subsequently having infection with graft exposure and undergoing explantation of the graft. Both patient and patient's are not happy with it. He currently has a right subclavian catheter for hemodialysis. Plan to put a AV fistula in his right arm. He is a little nervous about it. However he has done well with his heart failure syndrome. Today he underwent dialysis and post dialysis said did not feel well and that to give him some fluid back. His dry weight is around 59.9 kg. Currently denies any orthopnea, PND, leg edema. He is using Lasix every day and says that he does still have urine output. He denies any chest pain. He had an echocardiogram in September which showed moderately severe LV systolic dysfunction with LVEF of 30 35%. He comes for ICD evaluation and follow-up with his CAD as well as his mitral valve replacement. [facility] Medical History Hyperlipidemia Hypertension CKD (chronic kidney disease) Chronic HFrEF (heart failure with reduced ejection fraction) ICD (implantable cardioverter-defibrillator) in place CAD (coronary artery disease) Ischemic cardiomyopathy Congestive heart failure Surgical History History of surgery S/P MVR (mitral valve replacement) S/P CABG x 3 Family History Father No problems noted. Mother No problems noted. Family/Other CVD (cardiovascular disease) Social History Housing: House Alcohol intake: current Alcohol intake frequency: a few times a week Patient Tobacco Use Status: Current everyday Tobacco user Tobacco use type: Cigarette Cigarettes Per Day: 2 e-Cigarette/Vaping Use: Never Used Second Hand Smoke Exposure: Yes service: No Current occupational status: retired Current occupational exposures/hazards: No Cognitive needs: No Hearing needs: No Vision needs: Yes Review of Systems Const Denies chills, Denies fatigue, Denies fever(s), Denies frequent falls, Denies weakness, Denies weight gain and Denies weight loss ENT Denies dizziness Card Denies chest pain, Denies leg edema, Denies lightheadedness, Denies palpitations, Denies dyspnea, Denies dyspnea on exertion, Denies orthopnea and Denies other (loss of consciousness) Resp Denies cough, Denies dyspnea and Denies dyspnea on exertion GI Denies hematochezia and Denies change in stool character Musc Denies abnormal gait, Denies muscle weakness, Denies numbness, Denies radiating pain into limb and Denies tingling Neuro Denies abnormal gait, Denies dizziness, Denies frequent falls, Denies numbness, Denies tingling and Denies weakness Endo Denies fatigue and Denies palpitations Physical Exam Vital Signs: Last Vital Signs Pulse 65 10/25/23 12:41 BP 136/60 10/25/23 12:41 BMI result Body Mass Index 19.8 Const General: cooperative, no acute distress, alert and awake Nutritional Appearance: thin, underweight and other (Frail appearing elderly man) Orientation/consciousness: patient oriented x3 Neck Neck: Yes normal visual inspection and Yes JVD Resp Effort & Inspection: normal respiratory effort, able to speak in complete sentences and not labored Auscultation: clear to auscultation bilaterally, no crackles, no rales and bronchovesicular breath sounds on the left (Posterior long) Cardio Jugular venous distension: JVD Rate: regular rate Rhythm: regular rhythm Heart sounds: S1 normal heart sound present and S2 normal heart sound present Peripheral pulses: Peripheral pulses 2+ throughout GI Inspection: Yes normal to inspection Neuro General: patient oriented x3 Extrem General: Yes normal to inspection and No edema Office Procedures Cardiac Device Check Cardiac Device Check Details: A single-chamber [place] [employer] ICD in place. Programmed in VVIR, was reprogrammed to VVI at 40 beats per minute. Ventricular pacing thresholds are adequate. Ventricular sensing is adequate. Pacing and shock lead impedance is stable. Battery life is excellent. Heart logic score is 0 11519-TY Cardiac Device Check, single lead implantable defibrillator Procedure code (CPT) selection complete EKG Details: EKG shows normal sinus rhythm with PACs with right bundle-branch block and LVH with inferior infarct [id number], Complete Assessment & Plan Assessment & Plan (1) Chronic HFrEF (heart failure with reduced ejection fraction): Code(s): I50.22 - Chronic systolic (congestive) heart failure Plan: Heart failure with reduced ejection fraction, clinically euvolemic and well compensated. He has done well with dialysis. Continue to pursue current dry weight status. Also on current diuretic regimen. Not sure if this is entirely necessary at this point in time. He still does have urine output. Advised daily weight monitoring avoidance of salt loading. Will also continue to monitor heart failure through device monitoring. Continue current neurohormonal modulation metoprolol. Now that he is on hemodialysis will discuss with Nephrology to potentially add angiotensin receptor radha her and eventually switch him to Entresto if he tolerates. Would consider start him on valsartan 40 mg b.i.d.. Will follow-up with Dr. Gongora. Continue with current hemodialysis sessions. Overall prognosis remains guarded. Also discussed with patient about considering phase 2 cardiac rehabilitation although he thinks that a lot of things going on and wants to pursue his own rehab (2) S/P MVR (mitral valve replacement): Comment: 29 mm [place] bioprosthetic valve, December 2018 Code(s): Z95.2 - Presence of prosthetic heart valve Plan: Status post bioprosthetic mitral valve replacement. Currently doing well with this. Continue aggressive risk factor modification. Will follow with echocardiogram on annual basis. Continue low-dose aspirin therapy. SBE prophylaxis as per ACC/[place] guidelines. (3) CAD (coronary artery disease): Code(s): I25.10 - Atherosclerotic heart disease of [place] coronary artery without angina pectoris Plan: CAD status post 3 vessel coronary bypass grafting with prior myocardial infarction ischemic cardiomyopathy. Continue aspirin. Continue aggressive risk factor modification. Goal LDL less than 70 mg/dL. Blood pressure is currently optimally control and may consider adding valsartan therapy as above. Continue participate in physical activity as tolerated. Overall prognosis is guarded. (4) ICD (implantable cardioverter-defibrillator) in place: Comment: Single-chamber [place] [employer] ICD for primary prevention Code(s): Z95.810 - Presence of automatic (implantable) cardiac defibrillator Plan: ICD in place for primary prevention. ICD is working well. Will follow remotely for heart failure as well as device function as programmed. Follow up in the clinic in 6 months time. Thank you for allowing me to partake in his care Will follow up in the clinic in 6 months time, sooner p.r.n.. Thank you for allowing me to partake in his care. Rhythm 40 minutes was spent in managing his complex care. Medications: Changed From furosemide 20 mg orally 40mg in the AM and 20mg at lunch time; 90 tabs 3RF weight gain To furosemide 80 mg PO ONCE weight gain Coding Level of Care Code Est Pt Level 5 (93391) Diagnoses Chronic HFrEF (heart failure with reduced ejection fraction) I50.22 S/P MVR (mitral valve replacement) Z95.2 CAD (coronary artery disease) I25.10 ICD (implantable cardioverter-defibrillator) in place Z95.810 CPT Codes Cardiac Device Check - Cardiac Device 4: 70310-QX Cardiac Device Check, single lead implantable defibrillator ([id number]) EKG - CPT: 18513-Lnivmhkkzyatvpdvv, Complete ([id number])
== END 2023-10-25 13:56 | disposition home or self-care (01) ==
PROVIDERS: PCP Internal Medicine; Visit Provider Internal Medicine Cardiovascular Disease
DX: I50.22 Chronic systolic (congestive) heart failure (principal); I25.10 Atherosclerotic heart disease of native coronary artery without angina pectoris; Z95.2 Presence of prosthetic heart valve; Z95.810 Presence of automatic (implantable) cardiac defibrillator
CPT/HCPCS: 93282; 99214

== ENCOUNTER → 2023-11-23 23:59 | Outpatient (BNV) | payer MEDICARE, SELFPAY ==
--- NOTE | 2023-11-24 14:06 | A.OFFVIS_ITS ---
Intake Intake Visit Reasons: Remote HF Monitoring- [employer] Allergies No Known Allergies Allergy (Mild, Verified 06/25/23 10:10) NONE PFSH Medical History Hyperlipidemia Hypertension CKD (chronic kidney disease) Chronic HFrEF (heart failure with reduced ejection fraction) ICD (implantable cardioverter-defibrillator) in place CAD (coronary artery disease) Ischemic cardiomyopathy Congestive heart failure Surgical History History of surgery S/P MVR (mitral valve replacement) S/P CABG x 3 Family History Father No problems noted. Mother No problems noted. Family/Other CVD (cardiovascular disease) Social History Housing: House Alcohol intake: current Alcohol intake frequency: a few times a week Patient Tobacco Use Status: Current everyday Tobacco user Tobacco use type: Cigarette Cigarettes Per Day: 2 e-Cigarette/Vaping Use: Never Used Second Hand Smoke Exposure: Yes service: No Current occupational status: retired Current occupational exposures/hazards: No Cognitive needs: No Hearing needs: No Vision needs: Yes Office Procedures Cardiac Device Check Cardiac Device Check Details: Remote heart failure report generated 11/23/2023. Heart failure parameters are within normal limits [id number] Cardiac Device Interrogation, cardio physiologic monitor Procedure code (CPT) selection complete Assessment & Plan Assessment & Plan (1) ICD (implantable cardioverter-defibrillator) in place: Comment: Single-chamber [employer] ICD for primary prevention Code(s): Z95.810 - Presence of automatic (implantable) cardiac defibrillator Plan: See above Coding Level of Care Code Procedure Only Diagnoses ICD (implantable cardioverter-defibrillator) in place Z95.810 CPT Codes Cardiac Device Check - Cardiac Device 15: [id number] Cardiac Device Interrogation, cardio physiologic monitor ([id number])
== END ==
PROVIDERS: PCP Internal Medicine; Visit Provider Internal Medicine Cardiovascular Disease
DX: I50.22 Chronic systolic (congestive) heart failure (principal); Z95.810 Presence of automatic (implantable) cardiac defibrillator
CPT/HCPCS: 93297

== ENCOUNTER → 2023-12-28 23:59 | Outpatient (BNV) | payer MEDICARE, SELFPAY ==
--- NOTE | 2023-12-31 14:55 | MHC.OFFVIS ---
Intake Intake Visit Reasons: Remote HF Monitoring- [employer] Allergies No Known Allergies Allergy (Mild, Verified 12/30/23 09:20) NONE PFSH Medical History Hyperlipidemia Hypertension CKD (chronic kidney disease) Chronic HFrEF (heart failure with reduced ejection fraction) ICD (implantable cardioverter-defibrillator) in place CAD (coronary artery disease) Ischemic cardiomyopathy Congestive heart failure Surgical History History of surgery S/P MVR (mitral valve replacement) S/P CABG x 3 Family History Father No problems noted. Mother No problems noted. Family/Other CVD (cardiovascular disease) Social History Housing: House Alcohol intake: current Alcohol intake frequency: a few times a week Patient Tobacco Use Status: Current everyday Tobacco user Tobacco use type: Cigarette Cigarettes Per Day: 2 e-Cigarette/Vaping Use: Never Used Second Hand Smoke Exposure: Yes service: No Current occupational status: retired Current occupational exposures/hazards: No Cognitive needs: No Hearing needs: No Vision needs: Yes Office Procedures Cardiac Device Check Cardiac Device Check Details: Remote heart failure report generated 12/29/2023. Heart failure parameters elevated. Will follow-up with the patient [id number] Cardiac Device Interrogation, cardio physiologic monitor Procedure code (CPT) selection complete Assessment & Plan Assessment & Plan (1) ICD (implantable cardioverter-defibrillator) in place: Comment: Single-chamber [employer] ICD for primary prevention Code(s): Z95.810 - Presence of automatic (implantable) cardiac defibrillator Plan: See above Coding Level of Care Code Procedure Only Diagnoses ICD (implantable cardioverter-defibrillator) in place Z95.810 CPT Codes Cardiac Device Check - Cardiac Device 15: [id number] Cardiac Device Interrogation, cardio physiologic monitor ([id number])
== END ==
PROVIDERS: PCP Internal Medicine; Visit Provider Internal Medicine Cardiovascular Disease
DX: I50.22 Chronic systolic (congestive) heart failure (principal); Z95.810 Presence of automatic (implantable) cardiac defibrillator
CPT/HCPCS: 93297

== ENCOUNTER 2023-12-30 09:15 | Outpatient (AMB) | payer MEDICARE, SELFPAY ==
[2023-12-30 09:19] VITALS: BP 132/68; PULSE 68; O2SAT 98; BMI 21.7
--- NOTE | 2023-12-30 09:19 | MHC.PC.OV ---
Vital Signs 12/30/23 09:19 Height 5 ft 8 in Weight 143 lb BMI 21.7 BP 132/68 Blood Pressure Location Lt brachial Position Sitting Pulse 68 Pulse Source Pulse Oximeter Pulse Oximetry (%) 98 Oxygen Delivery Method Room Air Intake Visit Reasons: 6 month f/u Machine Printer Required: No Case Finisher: Not Required per policy Accompanied by: Self / Same As Patient Allergies No Known Allergies Allergy (Mild, Verified 12/30/23 09:20) NONE Medication List - Last Reconciled 12/30/23 by Emanuel Black MD aspirin (Adult Low Dose Aspirin) 81 mg PO DAILY calcium carbonate (Calcium Antacid) mg PO TID furosemide 80 mg PO ONCE magnesium oxide 400 mg PO DAILY metoprolol tartrate 50 mg PO BID rosuvastatin 20 mg PO DAILY 90 days sevelamer carbonate 1,600 mg PO BID tramadol 50 mg PO TID PRN valsartan 40 mg PO BID Tobacco use date assessed: 12/30/23 Fall risk assessment: No Falls in past year Last assessed Fall Risk: 12/30/23 Dental Screening Dental Screen Date: 12/30/23 Did you have a dental visit in the last 12 months?: No Did you have a dental problem in the last 6 months where you did not have access to dental care?: No Was dental information given to patient?: Patient has dentist HPI 6 month f/u HPI Details renal failure on dialysis hyperlip and htn; feels well since starting dialysis PFSH Medical History Hyperlipidemia Hypertension CKD (chronic kidney disease) Chronic HFrEF (heart failure with reduced ejection fraction) ICD (implantable cardioverter-defibrillator) in place CAD (coronary artery disease) Ischemic cardiomyopathy Congestive heart failure Surgical History History of surgery S/P MVR (mitral valve replacement) S/P CABG x 3 Family History Father No problems noted. Mother No problems noted. Family/Other CVD (cardiovascular disease) Social History Housing: House Alcohol intake: current Alcohol intake frequency: a few times a week Patient Tobacco Use Status: Current everyday Tobacco user Tobacco use type: Cigarette Cigarettes Per Day: 2 e-Cigarette/Vaping Use: Never Used Second Hand Smoke Exposure: Yes service: No Current occupational status: retired Current occupational exposures/hazards: No Cognitive needs: No Hearing needs: No Vision needs: Yes Questionnaire PHQ-9 Over the last 2 weeks, how often have you been bothered by any of the following problems? 1. Little interest or pleasure in doing things: not at all 2. Feeling down, depressed, or hopeless: not at all 3. Trouble falling or staying asleep, or sleeping too much: not at all 4. Feeling tired or having little energy: not at all 5. Poor appetite or overeating: not at all 6. Feeling bad about yourself - or that you are a failure or have let yourself or your family down: not at all 7. Trouble concentrating on things, such as reading the newspaper or watching television: not at all 8. Moving or speaking so slowly that other people could have noticed. Or the opposite - being so fidgety or restless that you have been moving around a lot more than usual: not at all 9. Thoughts that you would be better off or of hurting yourself in some way: not at all Total score: 0 Depression Screening Interpretation: Negative Depression Screening Done: Yes [id number] - PHQ-9 Billing: Yes Source: Developed by Drs. Shoaib Martell, Li Ness, Yoan Mccartney and colleagues, with an educational emelia from [employer]. Thrive Questionnaire Date Thrive assessed: 12/30/23 I am a: Patient What is your living situation today?: I have a steady place to live Within the past 12 months, did the food you bought not last and you didn't have the money to get more?: Never true Within the past 12 months, did you worry whether your food would run out before you got money to buy more?: Never true Do you have trouble paying for medicines?: No Do you have trouble getting transportation to medical appointments?: No Do you have trouble paying your heating and electricity bill?: No Do you have trouble taking care of your child, family member or friend?: No Do you have trouble with day-to-day activities such as bathing, preparing meals, shopping, managing finances, etc.?: No Are you currently unemployed and looking for a job?: No Are you interested in more education?: No Please select the resources that you would like help with: None THRIVE Score: 0 AUDIT C Alcohol Use Questionnaire (AUDIT-C) 1. How often do you have a drink containing alcohol?: Monthly or less 2. How many drinks containing alcohol do you have on a typical day when you are drinking?: 1 or 2 3. How often do you have six or more drinks on one occasion?: Never Total Score: 1 Score Reviewed/Action Taken: Yes LOULOU-7 AMB Questionnaire LOULOU-7 Date LOULOU - 7 assessed: 12/30/23 Feeling nervous, anxious, or on edge: 0 = Not at all Not being able to stop or control worryin = Not at all Worrying too much about different things: 0 = Not at all Trouble relaxin = Not at all Being so restless that it is hard to sit still: 0 = Not at all Becoming easily annoyed or irritable: 0 = Not at all Feeling afraid as if something awful might happen: 0 = Not at all Total LOULOU-7 score (0-4 normal; 5-9 mild; 10-14 moderate; 15-21 severe): 0 Source: Developed by Drs. Shoaib Martell, Li Ness, Yoan Mccartney and colleagues, with an educational emelia from [employer]. LOULOU-7 Assessment Billing LOULOU-7 Assessment Tool: LOULOU-7 Assessment 03924 Review of Systems Const Denies chills, Denies headache(s) and Denies weight loss ENT Denies headache(s) Card Denies chest pain, Denies syncope, Denies irregular heart rhythm and Denies dyspnea Resp Denies chest congestion, Denies cough and Denies dyspnea GI Denies abdominal pain, Denies change in stool character, Denies nausea and Denies vomiting Musc Denies deformity and Denies joint swelling Neuro Denies syncope and Denies headache(s) Physical exam (Primary Care) Vital Signs: Last Vital Signs Pulse 68 12/30/23 09:19 BP 132/68 12/30/23 09:19 Pulse Ox 98 12/30/23 09:19 Oxygen Delivery Method Room Air 12/30/23 09:19 BMI result Body Mass Index 21.7 Tobacco/Smoking Status: Tobacco use Status Tobacco use date assessed 12/30/23 12/30/23 09:21 Patient Tobacco Use Status Current everyday Tobacco 12/30/23 09:21 Tobacco use type Cigarette 12/30/23 09:21 e-Cigarette/Vaping Use Never Used 12/30/23 09:21 PHQ-9: PHQ-9 Score PHQ-9: Total score 0 12/30/23 09:33 Depression Screening Interpretation: Negative Thrive Assessment: Date of Thrive Assessment Date Thrive assessed 12/30/23 12/30/23 09:21 Const General: cooperative, comfortable, no acute distress and alert Neck Neck: Yes no lymphadenopathy Thyroid: Thyroid normal Resp Effort & Inspection: normal respiratory effort Auscultation: clear to auscultation bilaterally Percussion: percussion normal Cardio Jugular venous distension: no JVD Palpation: normal PMI Rate: regular rate Rhythm: regular rhythm Heart sounds: S1 normal heart sound present and S2 normal heart sound present GI Inspection: Yes normal to inspection Palpation (GI): No hepatosplenomegaly present Skin General skin exam: no rashes or lesions noted Extrem General: Yes no clubbing, cyanosis or edema Assessment and Plan Assessment & Plan (1) Chronic renal failure: Code(s): N18.9 - Chronic kidney disease, unspecified Plan: stable ;as per neph (2) Hypertension: Code(s): I10 - Essential (primary) hypertension Plan: stable; same rx (3) Hyperlipidemia: Code(s): E78.5 - Hyperlipidemia, unspecified Plan: stable and same rx Coding Level of Care Code Est Pt Level 4 (41882) Diagnoses Chronic renal failure N18.9 Hypertension I10 Hyperlipidemia E78.5 Additional Codes LOULOU-7 Assessment Billing - LOULOU-7 Assessment Tool: LOULOU-7 Assessment 68611 ([id number])
== END 2023-12-30 09:58 | disposition home or self-care (01) ==
PROVIDERS: PCP Internal Medicine; Visit Provider Internal Medicine
DX: I12.9 Hypertensive chronic kidney disease with stage 1 through stage 4 chronic kidney disease, or unspecified chronic kidney disease (principal); N18.9 Chronic kidney disease, unspecified; E78.5 Hyperlipidemia, unspecified
CPT/HCPCS: 99214

== ENCOUNTER → 2024-02-01 23:59 | Outpatient (BNV) | payer MEDICARE, SELFPAY ==
--- NOTE | 2024-02-02 12:28 | MHC.OFFVIS ---
Intake Intake Visit Reasons: Remote ICD Check- [employer] Allergies No Known Allergies Allergy (Mild, Verified 12/30/23 09:20) NONE PFSH Medical History Hyperlipidemia Hypertension CKD (chronic kidney disease) Chronic HFrEF (heart failure with reduced ejection fraction) ICD (implantable cardioverter-defibrillator) in place CAD (coronary artery disease) Ischemic cardiomyopathy Congestive heart failure Surgical History History of surgery S/P MVR (mitral valve replacement) S/P CABG x 3 Family History Father No problems noted. Mother No problems noted. Family/Other CVD (cardiovascular disease) Social History Housing: House Alcohol intake: current Alcohol intake frequency: a few times a week Patient Tobacco Use Status: Current everyday Tobacco user Tobacco use type: Cigarette Cigarettes Per Day: 2 e-Cigarette/Vaping Use: Never Used Second Hand Smoke Exposure: Yes service: No Current occupational status: retired Current occupational exposures/hazards: No Cognitive needs: No Hearing needs: No Vision needs: Yes Office Procedures Cardiac Device Check Cardiac Device Check Details: Remote ICD report generated 02/01/2024. ICD function is adequate. Few episodes [place]ained [place] [id number] Cardiac Interrogation, implant defibrillator w/interim Procedure code (CPT) selection complete Assessment & Plan Assessment & Plan (1) ICD (implantable cardioverter-defibrillator) in place: Comment: Single-chamber [employer] ICD for primary prevention Code(s): Z95.810 - Presence of automatic (implantable) cardiac defibrillator Plan: See above Coding Level of Care Code Procedure Only Diagnoses ICD (implantable cardioverter-defibrillator) in place Z95.810 CPT Codes Cardiac Device Check - Cardiac Device 13: [id number] Cardiac Interrogation, implant defibrillator w/interim ([id number])
== END ==
PROVIDERS: PCP Internal Medicine; Visit Provider Internal Medicine Cardiovascular Disease
DX: I25.5 Ischemic cardiomyopathy (principal); Z95.810 Presence of automatic (implantable) cardiac defibrillator
CPT/HCPCS: 93295

== ENCOUNTER → 2024-02-01 23:59 | Outpatient (BNV) | payer MEDICARE, SELFPAY ==
--- NOTE | 2024-02-02 12:27 | MHC.OFFVIS ---
Intake Intake Visit Reasons: Remote HF Monitoring- [employer] Allergies No Known Allergies Allergy (Mild, Verified 12/30/23 09:20) NONE PFSH Medical History Hyperlipidemia Hypertension CKD (chronic kidney disease) Chronic HFrEF (heart failure with reduced ejection fraction) ICD (implantable cardioverter-defibrillator) in place CAD (coronary artery disease) Ischemic cardiomyopathy Congestive heart failure Surgical History History of surgery S/P MVR (mitral valve replacement) S/P CABG x 3 Family History Father No problems noted. Mother No problems noted. Family/Other CVD (cardiovascular disease) Social History Housing: House Alcohol intake: current Alcohol intake frequency: a few times a week Patient Tobacco Use Status: Current everyday Tobacco user Tobacco use type: Cigarette Cigarettes Per Day: 2 e-Cigarette/Vaping Use: Never Used Second Hand Smoke Exposure: Yes service: No Current occupational status: retired Current occupational exposures/hazards: No Cognitive needs: No Hearing needs: No Vision needs: Yes Office Procedures Cardiac Device Check Cardiac Device Check Details: Remote heart failure report generated 02/01/2024. Heart failure parameters are stable. [id number] Cardiac Device Interrogation, cardio physiologic monitor Procedure code (CPT) selection complete Assessment & Plan Assessment & Plan (1) ICD (implantable cardioverter-defibrillator) in place: Comment: Single-chamber [employer] ICD for primary prevention Code(s): Z95.810 - Presence of automatic (implantable) cardiac defibrillator Plan: See above Coding Level of Care Code Procedure Only Diagnoses ICD (implantable cardioverter-defibrillator) in place Z95.810 CPT Codes Cardiac Device Check - Cardiac Device 15: [id number] Cardiac Device Interrogation, cardio physiologic monitor ([id number])
== END ==
PROVIDERS: PCP Internal Medicine; Visit Provider Internal Medicine Cardiovascular Disease
DX: Z95.810 Presence of automatic (implantable) cardiac defibrillator (principal)
CPT/HCPCS: 93297

== ENCOUNTER → 2024-03-07 23:59 | Outpatient (BNV) | payer MEDICARE, SELFPAY ==
--- NOTE | 2024-03-08 12:53 | MHC.OFFVIS ---
Intake Visit Reasons: Remote HF monitoring- [employer] Allergies No Known Allergies Allergy (Mild, Verified 12/30/23 09:20) NONE PFSH Medical History Hyperlipidemia Hypertension CKD (chronic kidney disease) Chronic HFrEF (heart failure with reduced ejection fraction) ICD (implantable cardioverter-defibrillator) in place CAD (coronary artery disease) Ischemic cardiomyopathy Congestive heart failure Surgical History History of surgery S/P MVR (mitral valve replacement) S/P CABG x 3 Family History Father No problems noted. Mother No problems noted. Family/Other CVD (cardiovascular disease) Social History Housing: House Alcohol intake: current Alcohol intake frequency: a few times a week Patient Tobacco Use Status: Current everyday Tobacco user Tobacco use type: Cigarette Cigarettes Per Day: 2 e-Cigarette/Vaping Use: Never Used Second Hand Smoke Exposure: Yes service: No Current occupational status: retired Current occupational exposures/hazards: No Cognitive needs: No Hearing needs: No Vision needs: Yes Office Procedures Cardiac Device Check Cardiac Device Check Details: Remote heart failure report generated 03/07/2024. Heart failure parameters are stable [id number] Cardiac Device Interrogation, cardio physiologic monitor Procedure code (CPT) selection complete Assessment & Plan Assessment & Plan (1) Chronic HFrEF (heart failure with reduced ejection fraction): Code(s): I50.22 - Chronic systolic (congestive) heart failure Category: Medical Plan: See above Coding Level of Care Code Procedure Only Diagnoses Chronic HFrEF (heart failure with reduced ejection fraction) I50.22 CPT Codes Cardiac Device Check - Cardiac Device 15: [id number] Cardiac Device Interrogation, cardio physiologic monitor ([id number])
== END ==
PROVIDERS: PCP Internal Medicine; Visit Provider Internal Medicine Cardiovascular Disease
DX: I50.22 Chronic systolic (congestive) heart failure (principal); Z95.810 Presence of automatic (implantable) cardiac defibrillator
CPT/HCPCS: 93297

== ENCOUNTER → 2024-04-11 23:59 | Outpatient (BNV) | payer MEDICARE, SELFPAY ==
--- NOTE | 2024-04-11 13:41 | A.OFFVIS_ITS ---
Intake Visit Reasons: Remote HF monitoring- [employer] Allergies No Known Allergies Allergy (Mild, Verified 12/30/23 09:20) NONE PFSH Medical History Hyperlipidemia Hypertension CKD (chronic kidney disease) Chronic HFrEF (heart failure with reduced ejection fraction) ICD (implantable cardioverter-defibrillator) in place CAD (coronary artery disease) Ischemic cardiomyopathy Congestive heart failure Surgical History History of surgery S/P MVR (mitral valve replacement) S/P CABG x 3 Family History Father No problems noted. Mother No problems noted. Family/Other CVD (cardiovascular disease) Social History Housing: House Alcohol intake: current Alcohol intake frequency: a few times a week Patient Tobacco Use Status: Current everyday Tobacco user Tobacco use type: Cigarette Cigarettes Per Day: 2 e-Cigarette/Vaping Use: Never Used Second Hand Smoke Exposure: Yes service: No Current occupational status: retired Current occupational exposures/hazards: No Cognitive needs: No Hearing needs: No Vision needs: Yes Office Procedures Cardiac Device Check Cardiac Device Check Details: Remote heart failure report generated 04/11/2024. Heart failure parameters are within normal limits [id number] Cardiac Device Interrogation, cardio physiologic monitor Procedure code (CPT) selection complete Assessment & Plan Assessment & Plan (1) ICD (implantable cardioverter-defibrillator) in place: Comment: Single-chamber [employer] ICD for primary prevention Code(s): Z95.810 - Presence of automatic (implantable) cardiac defibrillator Category: Medical Plan: See above Coding Level of Care Code Procedure Only Diagnoses ICD (implantable cardioverter-defibrillator) in place Z95.810 CPT Codes Cardiac Device Check - Cardiac Device 15: [id number] Cardiac Device Interrogation, cardio physiologic monitor ([id number])
== END ==
PROVIDERS: PCP Internal Medicine; Visit Provider Internal Medicine Cardiovascular Disease
DX: Z45.02 Encounter for adjustment and management of automatic implantable cardiac defibrillator (principal)
CPT/HCPCS: 93297

== ENCOUNTER 2024-04-27 12:14 | Outpatient (AMB) | payer MEDICARE, SELFPAY ==
[2024-04-27 12:42] VITALS: BP 140/70; PULSE 68; BMI 21.2
--- NOTE | 2024-04-27 12:42 | A.OFFVIS_ITS ---
Vital Signs 04/27/24 12:42 Height 5 ft 8 in Weight 139 lb 5.314 oz BMI 21.2 BP 140/70 H Blood Pressure Location Lt brachial Position Sitting Pulse 68 Pulse Source Pulse Oximeter Intake Visit Reasons: 6 month follow up [place] Man Required: No Accompanied by: Self / Same As Patient Allergies No Known Allergies Allergy (Mild, Verified 12/30/23 09:20) NONE Medication List - Last Reconciled 04/27/24 by Judd Rojas MD aspirin (Adult Low Dose Aspirin) 81 mg PO DAILY calcium carbonate (Calcium Antacid) mg PO TID furosemide 80 mg (4 x 20 mg) PO DIRECTED PRN magnesium oxide 400 mg PO DAILY metoprolol tartrate 50 mg PO BID rosuvastatin 20 mg PO DAILY sevelamer carbonate 1,600 mg PO BID tramadol 50 mg PO TID PRN HPI Comments Details: Andrea comes for cardiology follow-up. He has been doing well from cardiac perspective. Continues to use diuretic therapy and says that he diuresis okay. Currently undergoing dialysis on Wednesday through a port as he is having issues with the AV fistula. He denies any worsening breathing issues. Denies any orthopnea, PND or leg edema. No palpitations, lightheadedness, syncope, ICD discharge. FORMERLY [facility] Medical History Hyperlipidemia Hypertension CKD (chronic kidney disease) Chronic HFrEF (heart failure with reduced ejection fraction) ICD (implantable cardioverter-defibrillator) in place CAD (coronary artery disease) Ischemic cardiomyopathy Congestive heart failure Surgical History History of surgery S/P MVR (mitral valve replacement) S/P CABG x 3 Family History Father No problems noted. Mother No problems noted. Family/Other CVD (cardiovascular disease) Social History Housing: House Alcohol intake: current Alcohol intake frequency: a few times a week Patient Tobacco Use Status: Current everyday Tobacco user Tobacco use type: Cigarette Cigarettes Per Day: 2 e-Cigarette/Vaping Use: Never Used Second Hand Smoke Exposure: Yes service: No Current occupational status: retired Current occupational exposures/hazards: No Cognitive needs: No Hearing needs: No Vision needs: Yes Review of Systems Const Denies chills, Denies fatigue, Denies fever(s), Denies frequent falls, Denies weakness, Denies weight gain and Denies weight loss ENT Denies dizziness Card Denies chest pain, Denies leg edema, Denies lightheadedness, Denies palpitations, Denies dyspnea and Denies dyspnea on exertion Resp Denies cough, Denies dyspnea and Denies dyspnea on exertion GI Denies hematochezia Musc Denies abnormal gait, Denies muscle weakness, Denies numbness, Denies radiating pain into limb and Denies tingling Neuro Denies abnormal gait, Denies dizziness, Denies frequent falls, Denies numbness, Denies tingling and Denies weakness Endo Denies fatigue and Denies palpitations Physical Exam Vital Signs: Last Vital Signs Pulse 68 04/27/24 12:42 BP 140/70 H 04/27/24 12:42 BMI result Body Mass Index 21.2 Const General: cooperative, no acute distress, alert and awake Nutritional Appearance: thin and other (Frail appearing elderly man) Orientation/consciousness: patient oriented x3 Neck Neck: Yes normal visual inspection and Yes JVD Resp Effort & Inspection: normal respiratory effort, able to speak in complete sentences and not labored Auscultation: clear to auscultation bilaterally, no crackles, no rales and bronchovesicular breath sounds on the left (Posterior long) Cardio Jugular venous distension: JVD Rate: regular rate Rhythm: regular rhythm Heart sounds: S1 normal heart sound present and S2 normal heart sound present Peripheral pulses: Peripheral pulses 2+ throughout GI Inspection: Yes normal to inspection Neuro General: patient oriented x3 Extrem General: Yes normal to inspection and No edema Office Procedures Cardiac Device Check Cardiac Device Check Details: Single-chamber [employer] ICD in place. Programmed in VVI at 40 beats per minute. Ventricular arrhythmia reported are more consistent with lead noise. Pacing and shock lead impedance is stable. Pacing thresholds excellent. Ventricular sensing is excellent. Battery life is excellent at 11.3 years [id number] Cardiac Device Check, single lead implantable defibrillator Procedure code (CPT) selection complete Assessment & Plan Assessment & Plan (1) Chronic HFrEF (heart failure with reduced ejection fraction): Code(s): I50.22 - Chronic systolic (congestive) heart failure Category: Medical Plan: Heart failure with reduced ejection fraction with significant LV systolic dysfunction without overt signs of heart failure on current medical therapy. Continue current hemodialysis as well as diuretic dose with current dry weight maintenance. Continue metoprolol therapy for neurohormonal modulation. Could not tolerate other neurohormonal modulation due to low blood pressure. Encouraged to participate in physical activity as tolerated. Daily weight monitoring avoidance of salt loading was discussed. He understands and agrees. (2) S/P MVR (mitral valve replacement): Comment: 29 mm [place] bioprosthetic valve, December 2018 Code(s): Z95.2 - Presence of prosthetic heart valve Category: Surgical Plan: Status post mitral valve replacement with bioprosthetic valve. Valve seems to be clinically working well. Follow-up echocardiogram in 5 months time. Advise SBE prophylaxis as per ACC/[place] guidelines. Continue low-dose aspirin therapy. (3) ICD (implantable cardioverter-defibrillator) in place: Comment: Single-chamber [employer] ICD for primary prevention Code(s): Z95.810 - Presence of automatic (implantable) cardiac defibrillator Category: Medical Plan: ICD in place for primary prevention. ICD is working well. Reprogrammed for a dequate function. Will follow remotely for heart failure as well as device functioning. (4) CAD (coronary artery disease): Code(s): I25.10 - Atherosclerotic heart disease of [place] coronary artery without angina pectoris Category: Medical Plan: CAD with remote coronary artery bypass grafting. Clinically without any symptoms of angina. Continue aggressive medical therapy. Continue high- intensity statin therapy with target goal LDL less than 70 mg/dL. Continue metoprolol therapy. Blood pressure is currently well optimized encouraged to participate in physical activity as tolerated. Will follow up in the clinic in 6 months time after a stress test and echocardiogram. Thank you for allowing me to partake in his care Coding Level of Care Code Est Pt Level 4 (02083) Diagnoses Chronic HFrEF (heart failure with reduced ejection fraction) I50.22 S/P MVR (mitral valve replacement) Z95.2 ICD (implantable cardioverter-defibrillator) in place Z95.810 CAD (coronary artery disease) I25.10 CPT Codes Cardiac Device Check - Cardiac Device 4: [id number] Cardiac Device Check, single lead implantable defibrillator ([id number])
== END 2024-04-27 12:56 | disposition home or self-care (01) ==
PROVIDERS: PCP Internal Medicine; Visit Provider Internal Medicine Cardiovascular Disease
DX: I50.22 Chronic systolic (congestive) heart failure (principal); Z95.3 Presence of xenogenic heart valve; Z95.810 Presence of automatic (implantable) cardiac defibrillator; I25.10 Atherosclerotic heart disease of native coronary artery without angina pectoris
CPT/HCPCS: 93282; 99214

== ENCOUNTER → 2024-04-27 12:14 | Outpatient (BNVA) | payer MEDICARE, SELFPAY | PROVIDERS: PCP Internal Medicine; Visit Provider Internal Medicine Cardiovascular Disease | DX: Z45.02 Encounter for adjustment and management of automatic implantable cardiac defibrillator (principal); I50.22 Chronic systolic (congestive) heart failure; I25.10 Atherosclerotic heart disease of native coronary artery without angina pectoris; Z95.2 Presence of prosthetic heart valve | CPT/HCPCS: 99212 ==

== ENCOUNTER → 2024-05-16 23:59 | Outpatient (BNV) | payer MEDICARE, SELFPAY ==
--- NOTE | 2024-05-26 15:19 | MHC.OFFVIS ---
Intake Visit Reasons: Remote HF monitoring- [employer] Allergies No Known Allergies Allergy (Mild, Verified 12/30/23 09:20) NONE PFSH Medical History Hyperlipidemia Hypertension CKD (chronic kidney disease) Chronic HFrEF (heart failure with reduced ejection fraction) ICD (implantable cardioverter-defibrillator) in place CAD (coronary artery disease) Ischemic cardiomyopathy Congestive heart failure Surgical History History of surgery S/P MVR (mitral valve replacement) S/P CABG x 3 Family History Father No problems noted. Mother No problems noted. Family/Other CVD (cardiovascular disease) Social History Housing: House Alcohol intake: current Alcohol intake frequency: a few times a week Patient Tobacco Use Status: Current everyday Tobacco user Tobacco use type: Cigarette Cigarettes Per Day: 2 e-Cigarette/Vaping Use: Never Used Second Hand Smoke Exposure: Yes service: No Current occupational status: retired Current occupational exposures/hazards: No Cognitive needs: No Hearing needs: No Vision needs: Yes Office Procedures Cardiac Device Check Cardiac Device Check Details: Remote heart failure report generated 05/16/2024. Heart failure index is elevated. Will follow-up with patient clinically [id number] Cardiac Device Interrogation, cardio physiologic monitor Procedure code (CPT) selection complete Assessment & Plan Assessment & Plan (1) Chronic HFrEF (heart failure with reduced ejection fraction): Code(s): I50.22 - Chronic systolic (congestive) heart failure Category: Medical Plan: See above Coding Level of Care Code Procedure Only Diagnoses Chronic HFrEF (heart failure with reduced ejection fraction) I50.22 CPT Codes Cardiac Device Check - Cardiac Device 15: [id number] Cardiac Device Interrogation, cardio physiologic monitor ([id number])
== END ==
PROVIDERS: PCP Internal Medicine; Visit Provider Internal Medicine Cardiovascular Disease
DX: I50.22 Chronic systolic (congestive) heart failure (principal); Z95.810 Presence of automatic (implantable) cardiac defibrillator
CPT/HCPCS: 93297

== ENCOUNTER → 2024-06-20 23:59 | Outpatient (BNV) | payer MEDICARE, SELFPAY ==
--- NOTE | 2024-06-26 14:35 | MHC.OFFVIS ---
Intake Visit Reasons: Remote HF monitroing- [employer] Allergies No Known Allergies Allergy (Mild, Verified 12/30/23 09:20) NONE PFSH Medical History Hyperlipidemia Hypertension CKD (chronic kidney disease) Chronic HFrEF (heart failure with reduced ejection fraction) ICD (implantable cardioverter-defibrillator) in place CAD (coronary artery disease) Ischemic cardiomyopathy Congestive heart failure Surgical History History of surgery S/P MVR (mitral valve replacement) S/P CABG x 3 Family History Father No problems noted. Mother No problems noted. Family/Other CVD (cardiovascular disease) Social History Housing: House Alcohol intake: current Alcohol intake frequency: a few times a week Patient Tobacco Use Status: Current everyday Tobacco user Tobacco use type: Cigarette Cigarettes Per Day: 2 e-Cigarette/Vaping Use: Never Used Second Hand Smoke Exposure: Yes service: No Current occupational status: retired Current occupational exposures/hazards: No Cognitive needs: No Hearing needs: No Vision needs: Yes Office Procedures Cardiac Device Check Cardiac Device Check Details: Remote heart failure report generated 06/20/2024. Heart failure parameters are within normal limits [id number] Cardiac Device Interrogation, cardio physiologic monitor Procedure code (CPT) selection complete Assessment & Plan Assessment & Plan (1) ICD (implantable cardioverter-defibrillator) in place: Comment: Single-chamber [employer] ICD for primary prevention Code(s): Z95.810 - Presence of automatic (implantable) cardiac defibrillator Category: Medical Plan: See above Coding Level of Care Code Procedure Only Diagnoses ICD (implantable cardioverter-defibrillator) in place Z95.810 CPT Codes Cardiac Device Check - Cardiac Device 15: [id number] Cardiac Device Interrogation, cardio physiologic monitor ([id number])
== END ==
PROVIDERS: PCP Internal Medicine; Visit Provider Internal Medicine Cardiovascular Disease
DX: Z45.02 Encounter for adjustment and management of automatic implantable cardiac defibrillator (principal)
CPT/HCPCS: 93297

== ENCOUNTER 2024-06-29 09:36 | Outpatient (AMB) | payer MEDICARE, SELFPAY ==
[2024-06-29 09:39] VITALS: BP 142/82; PULSE 65; O2SAT 98; BMI 21.3
--- NOTE | 2024-06-29 09:39 | MHC.PC.OV ---
Vital Signs 06/29/24 09:39 Height 5 ft 8 in Weight 140 lb BMI 21.3 BP 142/82 H Blood Pressure Location Lt brachial Position Sitting Pulse 65 Pulse Source Pulse Oximeter Pulse Oximetry (%) 98 Oxygen Delivery Method Room Air Intake Visit Reasons: 6mth f/u Allergies No Known Allergies Allergy (Mild, Verified 06/29/24 09:44) NONE Medication List - Last Reconciled 06/29/24 by Emanuel Black MD aspirin (Adult Low Dose Aspirin) 81 mg PO DAILY calcium carbonate (Calcium Antacid) mg PO TID furosemide 80 mg (4 x 20 mg) PO DIRECTED PRN magnesium oxide 400 mg PO DAILY metoprolol tartrate 50 mg PO BID rosuvastatin 20 mg PO DAILY sevelamer carbonate 1,600 mg PO BID tramadol 50 mg PO TID PRN Tobacco use date assessed: 06/29/24 Fall risk assessment: No Falls in past year Last assessed Fall Risk: 06/29/24 Dental Screening Dental Screen Date: 12/30/23 HPI 6mth f/u HPI Details hypertension hyperlipidemia and chronic renal failure on dialysis; stable; had rcent shunt revision [facility], [facility] Medical History Hyperlipidemia Hypertension CKD (chronic kidney disease) Chronic HFrEF (heart failure with reduced ejection fraction) ICD (implantable cardioverter-defibrillator) in place CAD (coronary artery disease) Ischemic cardiomyopathy Congestive heart failure Surgical History History of surgery S/P MVR (mitral valve replacement) S/P CABG x 3 Family History Father No problems noted. Mother No problems noted. Family/Other CVD (cardiovascular disease) Social History Housing: House Alcohol intake: current Alcohol intake frequency: a few times a week Patient Tobacco Use Status: Current everyday Tobacco user Tobacco use type: Cigarette Cigarettes Per Day: 2 e-Cigarette/Vaping Use: Never Used Second Hand Smoke Exposure: Yes service: No Current occupational status: retired Current occupational exposures/hazards: No Cognitive needs: No Hearing needs: No Vision needs: Yes Questionnaire PHQ-9 Over the last 2 weeks, how often have you been bothered by any of the following problems? 1. Little interest or pleasure in doing things: not at all 2. Feeling down, depressed, or hopeless: not at all 3. Trouble falling or staying asleep, or sleeping too much: not at all 4. Feeling tired or having little energy: not at all 5. Poor appetite or overeating: not at all 6. Feeling bad about yourself - or that you are a failure or have let yourself or your family down: not at all 7. Trouble concentrating on things, such as reading the newspaper or watching television: not at all 8. Moving or speaking so slowly that other people could have noticed. Or the opposite - being so fidgety or restless that you have been moving around a lot more than usual: not at all 9. Thoughts that you would be better off or of hurting yourself in some way: not at all Total score: 0 Depression Screening Interpretation: Negative Depression Screening Done: Yes 18211 - PHQ-9 Billing: Yes Source: Developed by Drs. Shoaib Martell, Yoan Dorsey and colleagues, with an educational emelia from [employer]. Thrive Questionnaire Date Thrive assessed: 12/30/23 AUDIT C Alcohol Use Questionnaire (AUDIT-C) 1. How often do you have a drink containing alcohol?: Monthly or less 2. How many drinks containing alcohol do you have on a typical day when you are drinking?: 1 or 2 3. How often do you have six or more drinks on one occasion?: Never Total Score: 1 Score Reviewed/Action Taken: Yes LOULOU-7 AMB Questionnaire LOULOU-7 Date LOULOU - 7 assessed: 12/30/23 Source: Developed by Drs. Shoaib Martell, Yoan Dorsey and colleagues, with an educational emelia from [employer]. Review of Systems Const Denies chills, Denies headache(s) and Denies weight loss ENT Denies headache(s) Card Denies chest pain, Denies syncope, Denies irregular heart rhythm and Denies dyspnea Resp Denies chest congestion, Denies cough and Denies dyspnea GI Denies abdominal pain, Denies change in stool character, Denies nausea and Denies vomiting Musc Denies deformity and Denies joint swelling Neuro Denies syncope and Denies headache(s) Physical exam (Primary Care) Vital Signs: Last Vital Signs Pulse 65 06/29/24 09:39 BP 142/82 H 06/29/24 09:39 Pulse Ox 98 06/29/24 09:39 Oxygen Delivery Method Room Air 06/29/24 09:39 BMI result Body Mass Index 21.3 Tobacco/Smoking Status: Tobacco use Status Tobacco use date assessed 06/29/24 06/29/24 09:47 Patient Tobacco Use Status Current everyday Tobacco 06/29/24 09:40 Tobacco use type Cigarette 06/29/24 09:40 e-Cigarette/Vaping Use Never Used 06/29/24 09:40 PHQ-9: PHQ-9 Score PHQ-9: Total score 0 06/29/24 09:47 Depression Screening Interpretation: Negative Thrive Assessment: Date of Thrive Assessment Date Thrive assessed 12/30/23 06/29/24 09:40 Const General: cooperative, comfortable, no acute distress and alert Neck Neck: Yes no lymphadenopathy Thyroid: Thyroid normal Resp Effort & Inspection: normal respiratory effort Auscultation: clear to auscultation bilaterally Percussion: percussion normal Cardio Jugular venous distension: no JVD Palpation: normal PMI Rate: regular rate Rhythm: regular rhythm Heart sounds: S1 normal heart sound present and S2 normal heart sound present GI Inspection: Yes normal to inspection Palpation (GI): No hepatosplenomegaly present Skin General skin exam: no rashes or lesions noted Extrem General: Yes no clubbing, cyanosis or edema Assessment and Plan Assessment & Plan (1) Chronic renal failure: Code(s): N18.9 - Chronic kidney disease, unspecified Plan: stable; as per nephrology (2) Hypertension: Code(s): I10 - Essential (primary) hypertension Plan: stable; same rx (3) Hyperlipidemia: Code(s): E78.5 - Hyperlipidemia, unspecified Plan: stable; same rx Orders: Orders Comprehensive [place]. Panel Fast Today Z13.9 - Encounter for screening, unspecified Lipid Panel Today Z13.220 - Encounter for screening for lipoid disorders Complete Blood Count Auto Diff Today Z13.0 - Encounter for screening for diseases of the blood and blood-forming organs and certain disorders involving the immune mechanism Thyroid Stimulating Hormone Today Z13.29 - Encounter for screening for other suspected endocrine disorder Coding Level of Care Code Est Pt Level 4 (37676) Diagnoses Chronic renal failure N18.9 Hypertension I10 Hyperlipidemia E78.5
== END 2024-06-29 10:27 | disposition home or self-care (01) ==
PROVIDERS: PCP Internal Medicine; Visit Provider Internal Medicine
DX: I12.9 Hypertensive chronic kidney disease with stage 1 through stage 4 chronic kidney disease, or unspecified chronic kidney disease (principal); N18.9 Chronic kidney disease, unspecified; E78.5 Hyperlipidemia, unspecified
CPT/HCPCS: 99214

== ENCOUNTER → 2024-08-29 23:59 | Outpatient (BNV) | payer MEDICARE, SELFPAY ==
--- NOTE | 2024-09-11 17:08 | MHC.OFFVIS ---
Intake Visit Reasons: Remote HF monitoring- [facility] [employer] Allergies No Known Allergies Allergy (Mild, Verified 08/30/24 01:33) NONE PFSH Medical History Hyperlipidemia Hypertension CKD (chronic kidney disease) Chronic HFrEF (heart failure with reduced ejection fraction) ICD (implantable cardioverter-defibrillator) in place CAD (coronary artery disease) Ischemic cardiomyopathy Congestive heart failure Surgical History History of surgery S/P MVR (mitral valve replacement) S/P CABG x 3 Family History Father No problems noted. Mother No problems noted. Family/Other CVD (cardiovascular disease) Social History Housing: House Alcohol intake: current Alcohol intake frequency: a few times a week Patient Tobacco Use Status: Current everyday Tobacco user Tobacco use type: Cigarette Cigarettes Per Day: 2 e-Cigarette/Vaping Use: Never Used Second Hand Smoke Exposure: Yes Advance Directives: No Advance Directives Information Provided: Yes service: No Current occupational status: retired Current occupational exposures/hazards: No Cognitive needs: No Hearing needs: No Vision needs: Yes Office Procedures Cardiac Device Check Cardiac Device Check Details: Remote heart failure report generated 09/01/2024. Heart failure parameters are within normal limits [id number] Cardiac Device Interrogation, cardio physiologic monitor Procedure code (CPT) selection complete Assessment & Plan Assessment & Plan (1) ICD (implantable cardioverter-defibrillator) in place: Comment: Single-chamber [place] [employer] ICD for primary prevention Code(s): Z95.810 - Presence of automatic (implantable) cardiac defibrillator Category: Medical Plan: See above Coding Level of Care Code Procedure Only Diagnoses ICD (implantable cardioverter-defibrillator) in place Z95.810 CPT Codes Cardiac Device Check - Cardiac Device 15: [id number] Cardiac Device Interrogation, cardio physiologic monitor ([id number])
== END ==
PROVIDERS: Visit Provider Internal Medicine Cardiovascular Disease
DX: Z45.02 Encounter for adjustment and management of automatic implantable cardiac defibrillator (principal)
CPT/HCPCS: 93297

== ENCOUNTER → 2024-08-29 23:59 | Outpatient (BNV) | payer MEDICARE, SELFPAY ==
--- NOTE | 2024-09-11 17:07 | MHC.OFFVIS ---
Intake Visit Reasons: Remote ICD Check- [employer] Allergies No Known Allergies Allergy (Mild, Verified 08/30/24 01:33) NONE PFSH Medical History Hyperlipidemia Hypertension CKD (chronic kidney disease) Chronic HFrEF (heart failure with reduced ejection fraction) ICD (implantable cardioverter-defibrillator) in place CAD (coronary artery disease) Ischemic cardiomyopathy Congestive heart failure Surgical History History of surgery S/P MVR (mitral valve replacement) S/P CABG x 3 Family History Father No problems noted. Mother No problems noted. Family/Other CVD (cardiovascular disease) Social History Housing: House Alcohol intake: current Alcohol intake frequency: a few times a week Patient Tobacco Use Status: Current everyday Tobacco user Tobacco use type: Cigarette Cigarettes Per Day: 2 e-Cigarette/Vaping Use: Never Used Second Hand Smoke Exposure: Yes Advance Directives: No Advance Directives Information Provided: Yes service: No Current occupational status: retired Current occupational exposures/hazards: No Cognitive needs: No Hearing needs: No Vision needs: Yes Office Procedures Cardiac Device Check Cardiac Device Check Details: Remote ICD report generated 09/01/2024. ICD function is adequate [id number] Cardiac Interrogation, implant defibrillator w/interim Procedure code (CPT) selection complete Assessment & Plan Assessment & Plan (1) ICD (implantable cardioverter-defibrillator) in place: Comment: Single-chamber [employer] ICD for primary prevention Code(s): Z95.810 - Presence of automatic (implantable) cardiac defibrillator Category: Medical Plan: See above Coding Level of Care Code Procedure Only Diagnoses ICD (implantable cardioverter-defibrillator) in place Z95.810 CPT Codes Cardiac Device Check - Cardiac Device 13: [id number] Cardiac Interrogation, implant defibrillator w/interim ([id number])
== END ==
PROVIDERS: Visit Provider Internal Medicine Cardiovascular Disease
DX: Z45.02 Encounter for adjustment and management of automatic implantable cardiac defibrillator (principal)
CPT/HCPCS: 93295

== ENCOUNTER 2024-08-30 01:18 | Emergency (ER) | payer MEDICARE, SELFPAY ==
[2024-08-30 01:25] VITALS: BP 130/70; BP 137/66; PULSE 70; PULSE 74; RESP 20; TEMP 36.9; O2SAT 98; O2SAT 99; BMI 21.1
--- NOTE | 2024-08-30 01:41 | ED_ITS ---
HPI - General Adult General Chief complaint: General Medical Stated complaint: DIALYSIS PORT BLEEDING Time Seen by Provider: 08/30/24 01:32 Source: patient Mode of arrival: ambulatory Limitations: no limitations History of Present Illness ED Provider: cecilia DOWNS narrative: Patient's dialysis Shiley catheter from the right side was removed yesterday since then been oozing seen by urologist Decadron was applied still patient comes here as oozing from the wound Related Data Home Medications ?Medication ?Instructions ?Recorded ?Confirmed aspirin 81 mg tablet,delayed 81 mg PO DAILY 10/28/20 06/29/24 release (Adult Low Dose Aspirin) magnesium oxide 400 mg PO DAILY 05/19/22 06/29/24 calcium carbonate (Calcium Antacid) mg PO TID 10/25/23 06/29/24 sevelamer carbonate 800 mg tablet 1,600 mg PO BID 10/25/23 06/29/24 tramadol 50 mg tablet 50 mg PO TID PRN 10/25/23 06/29/24 Previous Rx's ?Medication ?Instructions ?Recorded metoprolol tartrate 50 mg tablet 50 mg PO BID #180 tabs 12/29/22 furosemide 20 mg tablet 80 mg (4 x 20 mg) PO DIRECTED 02/28/24 PRN weight gain #30 tabs rosuvastatin 20 mg tablet 20 mg PO DAILY #90 tabs 02/28/24 Allergies Allergy/AdvReac Type Severity Reaction Status Date / Time No Known Allergies Allergy Mild NONE Verified 08/30/24 01:33 Review of Systems 2 Review of Systems: Yes all other systems are reviewed and are negative [facility] Past Medical History Medical History Hyperlipidemia Hypertension CKD (chronic kidney disease) Chronic HFrEF (heart failure with reduced ejection fraction) ICD (implantable cardioverter-defibrillator) in place CAD (coronary artery disease) Ischemic cardiomyopathy Congestive heart failure Surgical History History of surgery S/P MVR (mitral valve replacement) S/P CABG x 3 Family History Family History Father No problems noted. Mother No problems noted. Family/Other CVD (cardiovascular disease) Social History Social History Housing: House Alcohol intake: current Alcohol intake frequency: a few times a week Patient Tobacco Use Status: Current everyday Tobacco user Tobacco use type: Cigarette Cigarettes Per Day: 2 e-Cigarette/Vaping Use: Never Used Second Hand Smoke Exposure: Yes Advance Directives: No Advance Directives Information Provided: Yes service: No Current occupational status: retired Current occupational exposures/hazards: No Cognitive needs: No Hearing needs: No Vision needs: Yes Physical Exam ED Vital Signs: Vital Signs - 24 hr 08/30/24 01:25 Temperature 98.5 F Pulse Rate 74 Respiratory Rate 20 Blood Pressure 137/66 Pulse Oximetry 98 Oxygen Delivery Method Room Air BMI result Body Mass Index 21.1 Chest Chest/axillae images: 2 1. Slight oozing at the opening of Shiley catheter which was removed Medications Administered Discontinued Medications Generic Name Dose Route Start Last Admin Trade Name Freq PRN Reason Stop Dose Admin Silver Nitrate 1 appl 08/30/24 01:45 08/30/24 01:54 Silver Nitrate Applicator Stick..Ea. TOPICAL 08/30/24 01:46 1 appl ONCE ONE Administration Procedures Procedure Narrative Procedure Narrative: Oozing Shiley catheter right SVC site: Silver nitrate was applied at the oozing sites followed by Surgicel bleeding stopped Discharge Plan Discharge Clinical Impression: Hematoma Patient Disposition: Home, Self-Care Instructions: Acute Wounds (ED) Additional Instructions: Local care as advised Follow with your PCP if any concerns Prescriptions: No Action metoprolol tartrate 50 mg tablet 50 mg PO BID Qty: 180 3RF rosuvastatin 20 mg tablet 20 mg PO DAILY Qty: 90 3RF furosemide 20 mg tablet 80 mg PO DIRECTED PRN (Reason: weight gain) Qty: 30 2RF Rx Instructions: Take 4 tabs to equal 80 mg once a day as needed for wt gain/swelling. magnesium oxide 400 mg magnesium tablet 400 mg PO DAILY aspirin [Adult Low Dose Aspirin] 81 mg tablet,delayed release (DR/EC) 81 mg PO DAILY sevelamer carbonate 800 mg tablet 1,600 mg PO BID tramadol 50 mg tablet 50 mg PO TID PRN calcium carbonate [Calcium Antacid] 200 mg calcium (500 mg) tablet,chewable PO TID Interventions: ED Discharge Assessment Last Done: 08/30/24 02:43 Discharge Date/Time: 08/30/24 02:43 Print Language: Moldovan
[2024-08-30] MEDS: Silver Nitrate Applicator STICK..EA. 1 APPL TOPICAL (01:54)
[2024-08-30 02:43] VITALS: BP 137/66; PULSE 74; RESP 20; TEMP 36.9; O2SAT 98
== END 2024-08-30 02:43 | disposition home or self-care (01) ==
PROVIDERS: Emergency Provider Internal Medicine
DX: T82.898A Other specified complication of vascular prosthetic devices, implants and grafts, initial encounter (principal); Y82.8 Other medical devices associated with adverse incidents; Y92.9 Unspecified place or not applicable; I13.2 Hypertensive heart and chronic kidney disease with heart failure and with stage 5 chronic kidney disease, or end stage renal disease; N18.6 End stage renal disease; I50.9 Heart failure, unspecified; N17.9 Acute kidney failure, unspecified; Z99.2 Dependence on renal dialysis
CPT/HCPCS: 99282; 99283

== ENCOUNTER → 2024-09-12 08:56 | Outpatient (REF) | payer MEDICARE, SELFPAY ==
--- NOTE | ~2024-09-12 | NM_ITS ---
Lexiscan Myocardial perfusion study Indication: Preoperative cardiovascular stratification Technique: The patient was brought in for a Lexiscan perfusion study on 09/12/2024 and was injected 0.4 mg of Lexiscan intravenously. Within a minute of this injection 25 mCi of sestamibi was given intravenously. Images were obtained using the SPECT gamma camera interlaced with the gating device. Images were obtained in supine position. Resting perfusion study was performed on 09/14/2024. Patient was administered 25 mCi of sestamibi intravenously at rest. Images were then obtained in supine position. Images obtained without without CT attenuation. Total DLP 99 mGy-cm. Images were processed with the software and compared side to side in short axis, horizontal long axis and vertical long axis views. Findings: The stress perfusion study showed nonattenuated images show moderately to severely reduced uptake in the basal inferior and inferolateral wall of the LV myocardium with almost absent uptake in the basal inferolateral wall.. The gated study shows reduced LV systolic function with calculated LVEF of 40%. LV cavity is mildly dilated in size. The gated study shows reduced wall thickening and contraction of the basal inferior and inferolateral segments. Resting study shows no significant change in perfusion pattern compared to stress perfusion study. Gating at rest reveals basal inferior and inferolateral wall motion abnormality with ejection fraction at 34%. The findings are consistent with no reversible defect suggestive ischemia. Nontransmural infarct of the basal inferior and inferolateral wall proton smear infarct of the basal inferolateral wall.. NM/NM frank perf SPECT rest & str Impression: 1. Myocardial perfusion imaging study shows no reversible ischemia with prior infarct segments of the basal inferior and inferolateral wall 2. Gated LVEF is 40% with stress 3. Transient ischemic dilatation not present but LV cavity is dilated Nondiagnostic change on EKG. Electronically signed by: Judd Rojas MD 09/17/2024 10:54 AM [facility]
--- NOTE | 2024-09-12 08:58 | CA_ITS ---
Transthoracic Echocardiogram Patient (Last, First, Middle): Andrea Orozco J Gender: Male Date of : 1945 Age: 79 Procedure Date: 09/12/2024 Procedure Type: Transthoracic Echocardiogram Location: OP Height: 172.72 cm Weight: 63.5 kg BSA: 1.76 m2 Heart Rate: bpm BP: 138 / 70 mmHg Biostatistics Professor: TO Referring MD: Judd Rojas MD Symptoms: Z95.2 - Presence of prosthetic heart valve Study Quality: Adequate Conclusions: - 1.Mildly dilated LV with moderately reduced LV ejection fraction 35-40% with pseudonormal filling pattern with underlying regional wall motion abnormality consistent with ischemic cardiomyopathy 2. Severely dilated left atrium 3. Normally function bioprosthetic mitral valve with mean gradient of 5 mm Hg 4. Mild aortic stenosis and regurgitation 5. Normal measured RV systolic pressure 6. No gross pericardial effusion Findings Left Ventricle Mildly increased left ventricular cavity size. There is mildly increased left ventricular wall thickness. The left ventricular systolic function is moderately decreased. The visually estimated ejection fraction is between 35 40%. Spectral Doppler is indicative of a pseudonormal filling pattern. Wall Motion Rest Echo Findings The mid inferior, mid inferoseptal, and basal inferolateral segments are hypokinetic. The basal inferior and basal inferoseptal segments are akinetic. All other scored wall segments showed normal motion. Right Ventricle Normal right ventricular cavity size and systolic function. There is an ICD wire seen in the right ventricle. Atria The left atrium is severely dilated. There is no evidence of interatrial shunt. The right atrium is moderately dilated. Aortic Valve There is mild calcification of the aortic valve. There is mild thickening of the aortic valve. There is mild aortic valve stenosis. The peak aortic gradient is 14 mmHg.The mean gradient is 9 mmHg. The aortic valve area is 1.67 cm2. There is trace (trivial) aortic valve regurgitation. Mitral Valve A bioprosthetic mitral valve is present. The prosthetic mitral valve appears to be functioning normally. the valve is well seated without abnormal rocking motion Pulmonic Valve The pulmonic valve is likely normal. There is trace pulmonic valve regurgitation. Tricuspid Valve Normal tricuspid valve structure. There is trace tricuspid valve regurgitation. The right ventricular systolic pressure is normal. The right ventricular systolic pressure is 27 mmHg. Normal right atrial pressure. There is no evidence of pulmonary hypertension. Great Vessels The pulmonary artery was not well visualized. There is no dilatation of the ascending aorta measuring 3.30 cm. Small plaque is seen in the sino tubular ridge. Venous The inferior vena cava is normal in size and collapses greater than 50% with inspiration. Pericardium/Pleural There is no evidence of pericardial effusion. Prior Study Comparison Changes noted compared to prior study dated: 09/16/2023. LV systolic function marginally improved Measurements 2D Linear Measurements IVSd: 1.43 0.6-0.9/0.6-1.0 cm LVIDd: 6.19 3.9-5.3/4.2-5.9 cm LVIDd Index: 3.52 2.4-3.2/2.2-3.1 cm/m2 LVIDs: 5.11 2.0-3.6 cm LVPWd: 1.08 0.7-1.1 cm LA Diam: 4.90 2.7-3.8/3.0-4.0 cm LAIDs Index: 2.78 1.5-2.3 cm/m2 LV Mass: 481.57 67-162/88-224 g LV Mass Index: 273.62 43-95/49-115 g/m2 LVOT Diam: 2.40 3.0+(-)1.3 cm 2D Systolic Function EF 4C: 34.00 >55% EF 2C: 46.00 >55% EF BiP: 38.20 >55% Mitral Valve MV VTI: 0.59 MV Pk Mark: 1.70 MV Mn Mark: 1.14 MV Pk Grad: 12.00 MV Mn Grad: 6.00 MV Pk E: 1.70 MV PK A: 1.22 MV Decel Time: 396.00 E/A: 1.40 E'Lateral: 7.29 E'Medial: 3.92 E/E' Med: 43.40 E/E' Lat: 23.30 PHT: 116.00 MVA PHT: 1.90 MVA Continuity: 1.09 Decel Garrett: 4.29 Aortic Valve AoV Pk Mark: 1.85 AoV Mn Mark: 1.43 AoV VTI: 0.38 AoV Pk Grad: 14.00 Aov Mn Grad: 9.00 DAYANA Cont.VTI: 1.67 LVOT LVOT Pk Mark: 0.67 LVOT Mn Mark: 0.44 LVOT VTI: 0.14 LVOT Pk Grad: 2.00 LVOT Mn Grad: 1.00 LVOT Diam: 2.40 LVOT Area: 4.52 Diastolic Function MV Pk E: 1.70 MV Pk A: 1.22 E/A: 1.40 E'Medial: 3.92 E/E' Med: 43.40 E' Laterial: 7.29 E/E' Lat: 23.30 Right Ventricle TAPSE (mm): 15.90 TVS' Mark: 7.67 Tricuspid Valve TR Pk Mark: 2.43 TR Pk Grad: 24.00 RA Press: 3.00 RVSP: 27.00 Great Vessels Aorta Sinus of Valsalva: 4.04 2.0-3.[address] Ridge: 2.90 1.7-3.4 cm Ao Asc: 3.30 2.1-3.4 cm Updated in Other Vendor System with Status of Final Judd Rojas MD electronically signed on 09/13/2024 1:24:02 PM with status of Final
--- NOTE | 2024-09-12 08:58 | CA_ITS ---
Acquisition Time: 2024-09-12 09:48:34 Total Exercise Time: 00:02:00 Test Indications: PROTHTIC HEAR VALVE Medications: Protocol: LEXISCAN Max HR: 088 BPM 63% of Pred: 139 BPM Max BP: 147/078 mmHG Max Work Load: 1.0 METS Lexiscan Stress Test with pt sitting and kicking his legs, with SOB and abdominal cramping with injection, with isolated PACs and Isolated PVCs, with normotensive response to injection. Nondiagnostic EKG for ischemia. In recovery, pt was treated with Aminophylline 75 mg to reverse Lexiscan. Nuclear Images Pending. Test reviewed with Dr. Rojas. Referred By: Judd Rojas Overread By: MARY KOLB
== END ==
LOC: HO.CARD 08:56
PROVIDERS: PCP Internal Medicine; Visit Provider Internal Medicine Cardiovascular Disease
DX: Z95.1 Presence of aortocoronary bypass graft (principal); Z95.2 Presence of prosthetic heart valve; I25.10 Atherosclerotic heart disease of native coronary artery without angina pectoris; I50.22 Chronic systolic (congestive) heart failure; Z95.810 Presence of automatic (implantable) cardiac defibrillator
CPT/HCPCS: 78452; 93017; 93306; A9500; J0280; J2785

== ENCOUNTER → 2024-09-12 08:58 | Outpatient (BNV) | payer MEDICARE, SELFPAY | PROVIDERS: PCP Internal Medicine; Visit Provider Nurse Practitioner Family | DX: I35.2 Nonrheumatic aortic (valve) stenosis with insufficiency (principal); Z95.3 Presence of xenogenic heart valve; I25.5 Ischemic cardiomyopathy | CPT/HCPCS: 78452; 93016; 93018; 93320; 93325; 93350 ==

== ENCOUNTER → 2024-10-03 23:59 | Outpatient (BNV) | payer MEDICARE, SELFPAY ==
--- NOTE | 2024-10-04 10:33 | MHC.OFFVIS ---
Intake Visit Reasons: Remote ICD check- [place] [employer] Allergies No Known Allergies Allergy (Mild, Verified 08/30/24 01:33) NONE PFSH Medical History Hyperlipidemia Hypertension CKD (chronic kidney disease) Chronic HFrEF (heart failure with reduced ejection fraction) ICD (implantable cardioverter-defibrillator) in place CAD (coronary artery disease) Ischemic cardiomyopathy Congestive heart failure Surgical History History of surgery S/P MVR (mitral valve replacement) S/P CABG x 3 Family History Father No problems noted. Mother No problems noted. Family/Other CVD (cardiovascular disease) Social History Housing: House Alcohol intake: current Alcohol intake frequency: a few times a week Patient Tobacco Use Status: Current everyday Tobacco user Tobacco use type: Cigarette Cigarettes Per Day: 2 e-Cigarette/Vaping Use: Never Used Second Hand Smoke Exposure: Yes service: No Current occupational status: retired Current occupational exposures/hazards: No Cognitive needs: No Hearing needs: No Vision needs: Yes Office Procedures Cardiac Device Check Cardiac Device Check Details: Remote ICD report generated 10/03/2024. ICD function is adequate [id number] Cardiac Interrogation, implant defibrillator w/interim Procedure code (CPT) selection complete Assessment & Plan Assessment & Plan (1) ICD (implantable cardioverter-defibrillator) in place: Comment: Single-chamber [place] [employer] ICD for primary prevention Code(s): Z95.810 - Presence of automatic (implantable) cardiac defibrillator Category: Medical Plan: See above Coding Level of Care Code Procedure Only Diagnoses ICD (implantable cardioverter-defibrillator) in place Z95.810 CPT Codes Cardiac Device Check - Cardiac Device 13: [id number] Cardiac Interrogation, implant defibrillator w/interim ([id number])
== END ==
PROVIDERS: PCP Internal Medicine; Visit Provider Internal Medicine Cardiovascular Disease
DX: Z45.02 Encounter for adjustment and management of automatic implantable cardiac defibrillator (principal)
CPT/HCPCS: 93295

== ENCOUNTER 2024-10-26 13:10 | Outpatient (AMB) | payer MEDICARE, SELFPAY ==
--- OUTSIDE RECORDS SUMMARY | 2024-10-26 13:11 | XMS_ITS ---
Author Organization [facility] Address [address] [place] [address] Care Team Providers Care Supervisor Stripping Name Role Phone Emanuel Black MD Primary Care Provider Celeste Carl [phone] Medications Medication SIG (Take, Route, Frequency, Duration) Notes Start Date End Date Status Metoprolol Tartrate 50 MG 1 tablet with food Orally Twice a day for 30 day(s) Active Furosemide 40 MG 1 tablet Orally Once a day for 30 day(s) Active Sevelamer HCl 800 MG 1 tablet with meals Orally Three times a day for 30 day(s) Active Calcium Carbonate 260 MG as directed Orally Active Rosuvastatin Calcium 20 MG 1 tablet Oral ly Once a day for 30 day(s) Active Social History Tobacco Use: Social History Observation Description Date Details (start date - stop date) Current Smoker NA - NA Tobacco Use/Smoking Question Answer Notes Are you a: current smoker Alcohol Screen Question Answer Notes Did you have a drink containing alcohol in the p ast year? Yes Points 0 Interpretation Negative Vital Signs Height 5 ft 8 in in 02/15/2024 Weight 142 lbs 02/15/2024 BMI 21.59 kg/m2 02/15/2024 Encounters Encounter Location Date Provider Diagnosis [facility] [address] [place] [address] 02/15/2024 Celeste Liu Plan Of Treatment No Information Progress Notes * Andrea OROZCODOB:[birth year] (79 yo M)Acc No.[id number]:02/15/2024 Progress Notes Patient:?Andrea OROZCO Provider:?Celeste Liu DPM :1945???Age:78 Y???Sex:Male David e:02/15/2024 Address:[address] [place] [address], [id number] Pcp:Emanuel Black MD Subjective: * Chief Complaints: * ??? * ROS:?General/Constitutional:?Nausea?denies.?Vomiting?denies.?Hunger Thirst?denies.?Loss appetite?denies.?Chills?denies.?Fatigue?admits.?Fever?denies.?Night Sweats?denies.?Unexplained weight loss?denies.?Unexplained weight gain?denies.?HEENTM:?Dentures?denies.?Dizziness?admits.?Glasses/contacts?denies.?Retinopathy?de nies.?Blurred/double vision?denies.?TMJ?denies.?Discharge/drainage?denies.?Implants?denies.?Sore throat?denies.?Dental implants?denies.?Hard of hearing ?denies.?Difficulty chewing/swallowing/speaking?denies.?Nose bleeds?denies.?Sore mouth?denies.?Respiratory:?On Oxygen?denies.?Pneumonia/pleurisy?denies.?Bronchitis?denies.?Emphysema?denies.?C oughing?admits.?Cough blood?denies.?Shortness of breath?admits.?Wheezing?denies.?Cardiovascular:?Pacemaker?admits.?MVP?denies.?WPW?denies.?CHF?denies.?Heart attack?denies.?Septal defect?denies.?Rapid beat?denies.?Chest pain ?denies.?Atrial Fib.?denies.?Murmur/Palpitations?denies.?Gastrointestinal:?Hemorrhoids?denies.?Stomach/Abdominal pain?denies.?Dark blood stool?denies.?Irritable bowel ?denies.?Constipation?denies.?Diarrhea?denies.?Hematology:?Swelling?denies.?Clots?denies.?Varicose Veins?denies.?Bruising?denies.?Bleeding problem?denies.?Genitourinary:?Blood urine?denies.?Frequent/Painfu/urination/bladder control?denies.?Kidney stones?denies.?Infection (UTI)?denies.?Nephropathy?admits.?sex trans dis (STD)?denies.?Prostate?denies.?Musculoskeletal:?Hammertoes?denies.?Bunions?denies.?Back Pain?denies.?Muscle Cramps/ Resting?denies.?Muscle cramps / walking?admits.?Generalized aches and pains?denies.?Weakness?denies.?Integ.:?Le?denies.?Scars?denies.?Corns/calluses?denies.?Ingrown nails?admits.?Painful nails?denies.?Open Sores?denies.?Rashes?denies.?Neurologic:?Difficulty sleeping?denies.?Brain disorder?denies.?Numbness?denies.?Balance trouble?denies.?Confusion?denies.?Fainting/blackouts?denies.?Tingling?denies.?Tr emors?denies.? * Medical History:?Arthritis, Heart disease, High blood pressure, Kidney disease, Numbness, Poor circulation, Vascular grafts, Heart valve conditions/replacement, Transfusions. * Surgical History:?aortic ans eorism 08/2018, valve and 3 bypass surgery 12/2018, defibrillator 06/2019, fistula repair 04/14/2023, graft 01/07/2024. * Family History:?Mother: dece ased, diagnosed with Family history of arthritis.?Father: .? * Social History:?Tobacco Use:?Tobacco Use/Smoking?Are you a:?current smoker ???Drugs/Alcohol:?Drugs?Have you used drugs other than those for medical reasons in the past 12 months??No ?Alcohol Screen?Did you have a drink containing alcohol in the past year??Yes ?Points?0 ?Interpretation?Negative ???Miscellaneous:?Caffeine: yes, frequency:. ?Marital status: . * Medications:?Taking Furosemi de 40 MG Tablet 1 tablet Orally Once a day , Taking Sevelamer HCl 800 MG Tablet 1 tablet with meals Orally Three times a day , Taking Calcium Carbonate 260 MG Tablet Chewable as directed Orally , Taking Rosuvastatin Calcium 20 MG Tablet 1 tablet Orally Once a day , Taking Metoprolol Tartrate 50 MG Tablet 1 tablet with food Orally Twice a day Objective: * Vitals:?Ht: 5 ft 8 in, Wt: 1 42, BMI:21.59. Assessment: Plan: * Treatment: * Images: * The named appointment provid er may or may not be the originator of this progress note, and it is not deemed complete until electronically signed by the appointment provider. Sign off status: Pending * Provider:?Celeste Liu DPM Date:?07/2024 Generated for Eliel galvan/Keanu/Donovan on:?10/26/2024 01:11 PM EST
--- OUTSIDE RECORDS SUMMARY | 2024-10-26 13:12 | XMS_ITS ---
Author Organization [facility] Address [address] [place] [address] Care Team Providers Care Customs Broker Name Role Phone Emanuel Black MD Primary Care Provider Celeste Carl [phone] REASON FOR VISIT Cancel Encounters Encounter Location Date Provider Diagnosis [facility] [address] [place] [address] 02/11/2024 Celeste Liu Plan Of Treatment No Information Progress Notes * Andrea OROZCODOB:[birth year] (78 yo M)Acc No.[id number]:02/11/2024 Patient:?Andrea Orozco :1945???Age:78 Y???Sex:Male Address:[address] [place], [place] [address] [id number] * true * Date:? Generated for Printi cole/Keanu/eTransmitting on:?10/26/2024 01:11 PM EST
--- OUTSIDE RECORDS SUMMARY | 2024-10-26 13:12 | XMS_ITS | Patient Health Record ---
Author Organization [facility] Address [address] [facility] [place] [address] Care Team Providers Care Braille Coder Name Role Phone Emanuel Black MD Primary Care Provider Celeste Carl [phone] Reason For Referral No Information Medications Medication SIG (Take, Route, Frequency, Duration) [...] ast year? Yes Points 0 Interpretation Negative Encounters Encounter Location Date Provider Diagnosis [facility] [address] [place] [address] 02/11/2024 Celeste Liu Plan Of Treatment No Information Insurance Providers Payer Name Payer Address Payer Phone Subscriber Number Group Number Insured Name Patient Relationship to Insured Coverage Start Date Coverage End Date Medicare [employer] [address] [facility] [address] [id number] Andrea Orozco Self - patient is the insured AARP Secondary to Medicare [address] [place] [address] [id number] Ernesto Andrea Self - patient is the insured Medical (General) History Medical History History ICD Code Arthritis Heart disease High blood pressure Kidney disease Numbness Poor circulation Vascular grafts Heart valve conditions/replacement Transfusions Surgical History Surgery Date(Month/Year) 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
--- NOTE | 2024-10-26 13:15 | MHC.OFFVIS ---
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: No Allergies No Known Allergies Allergy (Mild, Verified 10/26/24 13:19) NONE Medication List - Last Reconciled 10/26/24 by Gloria Kramre NP-C aspirin (Adult Low Dose Aspirin) 81 mg PO DAILY calcium carbonate (Calcium Antacid) mg PO TID cholestyramine (with sugar) 4 gram 1 scoop orally 2 times a day; furosemide 80 mg (4 x 20 mg) PO DIRECTED PRN magnesium oxide 400 mg PO DAILY metoprolol tartrate 50 mg PO BID rosuvastatin 20 mg PO DAILY sevelamer carbonate 1,600 mg PO BID tramadol 50 mg PO TID PRN HPI HPI 6m follow up after testing: Details: Andrea is a 79-year-old male with past medical history of hypertension, hyperlipidemia, End stage renal disease now on hemodialysis, CAD, Coronary artery bypass grafting, chronic heart failure with reduced EF, ischemic cardiomyopathy, history of bioprosthetic mitral valve replacement who presents for follow-up after recent echocardiogram and nuclear stress test. Today he reports that he has been feeling well since his last visit in April. He is offering no physical complaints. He attends his dialysis 3 times weekly. He denies any chest discomfort at rest or with activity. He says his breathing is comfortable. No PND, orthopnea or edema. No concerning heart palpitations, lightheadedness, presyncope, syncope, falls. He reports compliance with his medications. [facility] Medical History Hyperlipidemia Hypertension CKD (chronic kidney disease) Chronic HFrEF (heart failure with reduced ejection fraction) ICD (implantable cardioverter-defibrillator) in place CAD (coronary artery disease) Ischemic cardiomyopathy Congestive heart failure Surgical History History of surgery S/P MVR (mitral valve replacement) S/P CABG x 3 Family History Father No problems noted. Mother No problems noted. Family/Other CVD (cardiovascular disease) Social History Housing: House Alcohol intake: current Alcohol intake frequency: a few times a week Patient Tobacco Use Status: Current everyday Tobacco user Tobacco use type: Cigarette Cigarettes Per Day: 2 e-Cigarette/Vaping Use: Never Used Second Hand Smoke Exposure: Yes service: No Current occupational status: retired Current occupational exposures/hazards: No Cognitive needs: No Hearing needs: No Vision needs: Yes Review of Systems Const All systems reviewed & are unremarkable except as noted in HPI and below ENT Denies dizziness Card Denies chest pain, Denies chest pain at rest, Denies chest pain with activity, Denies rapid heart rate, Denies pedal edema, Denies edema, Denies leg edema, Denies lightheadedness, Denies palpitations, Denies dyspnea, Denies dyspnea on exertion and Denies orthopnea Resp Denies cough, Denies dyspnea and Denies dyspnea on exertion GI Denies hematochezia and Denies change in stool character Musc Denies abnormal gait, Denies limited range of motion, Denies muscle cramps, Denies muscle weakness, Denies numbness, Denies radiating pain into limb, Denies stiffness and Denies tingling Neuro Denies abnormal gait, Denies dizziness, Denies numbness and Denies tingling Endo Denies palpitations Physical Exam Vital Signs: Last Vital Signs Pulse 62 10/26/24 13:17 BP 122/60 10/26/24 13:17 BMI result Body Mass Index 21.9 Const General: cooperative, healthy appearing, comfortable and no acute distress Orientation/consciousness: patient oriented x3 Neck Neck: Yes normal visual inspection Resp Effort & Inspection: normal respiratory effort Auscultation: clear to auscultation bilaterally, no rales, no rhonchi and no wheezes Cardio Jugular venous distension: no JVD Rate: regular rate Rhythm: regular rhythm Heart sounds: S1 normal heart sound present, S2 normal heart sound present, Murmur heart sound present (faint systolic murmur, right sternal border) and no rubs Skin General skin exam: no rashes or lesions noted Neuro General: patient oriented x3 Extrem General: Yes normal to inspection and No no pedal edema Psych Appearance: grossly normal Mental Status: mental status grossly normal Speech and movement: Normal speech and movement present Office Procedures EKG Details: Today, read by me, sinus bradycardia, first-degree AV block with frequent PVC, right bundle branch block, rate 62, JT index 112.5 [id number], Complete Assessment & Plan Assessment & Plan (1) CAD (coronary artery disease): Code(s): I25.10 - Atherosclerotic heart disease of [place] coronary artery without angina pectoris Category: Medical Plan: History of CAD with three-vessel coronary artery bypass grafting, 2019. He had an echocardiogram on 09/12/2024 showing EF 35-40%, positive regional wall motion abnormalities, severely dilated left atrium, normally functioning bioprosthetic mitral valve with mean gradient 5 mmHg, mild aortic stenosis and aortic regurgitation. A pharmacological nuclear stress test on 09/12/2024 showed no ischemia but prior infarct of the basal inferior and inferior lateral wall. No prior stress test for comparison. He does have a known history of ischemic cardiomyopathy and his EF and wall motion is overall unchanged from his last echocardiogram. An EKG done today is showing sinus rhythm with right bundle branch block, first-degree AV block, PVCs, rate 62. He has no anginal symptoms. Test results reviewed with him in detail. Will continue on current med management for stable CAD. Continue aspirin indefinitely. Continue metoprolol. Continue rosuvastatin with ideal LDL goal less than 70. Labs done 06/15/2023 showed LDL 67. Will enter orders for an updated fasting lipid profile. Patient informed. Signs and symptoms of angina reviewed with him. Cardiology follow-up 6 months, sooner if needed. (2) S/P CABG x 3: Comment: BARROS to LAD and SVG to OM and distal RCA, December 2018 Code(s): Z95.1 - Presence of aortocoronary bypass graft Category: Surgical Plan: As above (3) Ischemic cardiomyopathy: Code(s): I25.5 - Ischemic cardiomyopathy Category: Medical Plan: History of ischemic cardiomyopathy. Most recent echo as above with EF 35-40%. He does have a single-chamber ICD in place. On exam he has no clinical signs of fluid overload. He does have end-stage renal disease and attends dialysis 3 times weekly. According to med list he is still on Lasix 80 mg daily as well. He follows closely with Nephrology. (4) ICD (implantable cardioverter-defibrillator) in place: Comment: Single-chamber [place] [employer] ICD for primary prevention Code(s): Z95.810 - Presence of automatic (implantable) cardiac defibrillator Category: Medical Plan: [place] [employer] single-chamber ICD in place. Last office interrogation 04/27/2024. Will plan for office interrogation next visit. He is connected to remote monitoring. Most recent interrogation reviewed. (5) S/P MVR (mitral valve replacement): Comment: 29 mm [place] bioprosthetic valve, December 2018 Code(s): Z95.2 - Presence of prosthetic heart valve Category: Surgical Plan: Hx Bioprosthetic MVR. Functioning normally on most recent echocardiogram. No murmur noted on exam. (6) Chronic renal failure: Code(s): N18.9 - Chronic kidney disease, unspecified Category: Medical Plan: as above (7) Hypertension: Code(s): I10 - Essential (primary) hypertension Category: Medical Plan: Well controlled. No med changes made (8) Hyperlipidemia: Code(s): E78.5 - Hyperlipidemia, unspecified Category: Medical Plan: LDL goal < 70. Due for Lipid profile. Continue Rosuvastatin. Plan Time spent on chart review, documentation, interview and assessment Orders: Orders AMB EKG-In Office 10/26/24 Z95.1 - Presence of aortocoronary bypass graft Coding Level of Care Code Est Pt Level 4 (93464) Complex EM visit Add On G2211 Diagnoses CAD (coronary artery disease) I25.10 S/P CABG x 3 Z95.1 Ischemic cardiomyopathy I25.5 ICD (implantable cardioverter-defibrillator) in place Z95.810 S/P MVR (mitral valve replacement) Z95.2 Chronic renal failure N18.9 Hypertension I10 Hyperlipidemia E78.5 CPT Codes EKG - CPT: [id number], Complete ([id number]) Time Spent (min) 30
[2024-10-26 13:17] VITALS: BP 122/60; PULSE 62; BMI 21.9
== END 2024-10-26 13:58 | disposition home or self-care (01) ==
PROVIDERS: PCP Internal Medicine; Visit Provider Nurse Practitioner Family
DX: R94.31 Abnormal electrocardiogram [ECG] [EKG] (principal)
CPT/HCPCS: 93010

== ENCOUNTER → 2024-10-26 13:10 | Outpatient (BNVA) | payer MEDICARE, SELFPAY | PROVIDERS: PCP Internal Medicine; Visit Provider Nurse Practitioner Family | DX: I12.0 Hypertensive chronic kidney disease with stage 5 chronic kidney disease or end stage renal disease (principal); I25.10 Atherosclerotic heart disease of native coronary artery without angina pectoris; I25.5 Ischemic cardiomyopathy; N18.6 End stage renal disease; E78.5 Hyperlipidemia, unspecified; Z95.810 Presence of automatic (implantable) cardiac defibrillator; Z95.2 Presence of prosthetic heart valve; Z99.2 Dependence on renal dialysis; Z95.1 Presence of aortocoronary bypass graft | CPT/HCPCS: 93005; 99212 ==

== ENCOUNTER → 2024-11-07 23:59 | Outpatient (BNV) | payer MEDICARE, SELFPAY ==
--- NOTE | 2024-11-07 16:11 | A.OFFVIS_ITS ---
Intake Visit Reasons: Remote ICD check - [employer] Allergies No Known Allergies Allergy (Mild, Verified 10/26/24 13:19) NONE PFSH Medical History Hyperlipidemia Hypertension CKD (chronic kidney disease) Chronic HFrEF (heart failure with reduced ejection fraction) ICD (implantable cardioverter-defibrillator) in place CAD (coronary artery disease) Ischemic cardiomyopathy Congestive heart failure Surgical History History of surgery S/P MVR (mitral valve replacement) S/P CABG x 3 Family History Father No problems noted. Mother No problems noted. Family/Other CVD (cardiovascular disease) Social History Housing: House Alcohol intake: current Alcohol intake frequency: a few times a week Patient Tobacco Use Status: Current everyday Tobacco user Tobacco use type: Cigarette Cigarettes Per Day: 2 e-Cigarette/Vaping Use: Never Used Second Hand Smoke Exposure: Yes service: No Current occupational status: retired Current occupational exposures/hazards: No Cognitive needs: No Hearing needs: No Vision needs: Yes Office Procedures Cardiac Device Check Cardiac Device Check Details: Remote ICD report generated 11/07/2024. ICD function is adequate [id number] Cardiac Interrogation, implant defibrillator w/interim Procedure code (CPT) selection complete Assessment & Plan Assessment & Plan (1) ICD (implantable cardioverter-defibrillator) in place: Comment: Single-chamber [place] [employer] ICD for primary prevention Code(s): Z95.810 - Presence of automatic (implantable) cardiac defibrillator Category: Medical Plan: See above Coding Level of Care Code Procedure Only Diagnoses ICD (implantable cardioverter-defibrillator) in place Z95.810 CPT Codes Cardiac Device Check - Cardiac Device 13: [id number] Cardiac Interrogation, implant defibrillator w/interim ([id number])
== END ==
PROVIDERS: PCP Internal Medicine; Visit Provider Internal Medicine Cardiovascular Disease
DX: Z45.02 Encounter for adjustment and management of automatic implantable cardiac defibrillator (principal)
CPT/HCPCS: 93295

== ENCOUNTER → 2024-12-12 23:59 | Outpatient (BNV) | payer MEDICARE, SELFPAY ==
--- NOTE | 2024-12-13 11:40 | MHC.OFFVIS ---
Intake Visit Reasons: Remote ICD check - [employer] Allergies No Known Allergies Allergy (Mild, Verified 10/26/24 13:19) NONE PFSH Medical History Hyperlipidemia Hypertension CKD (chronic kidney disease) Chronic HFrEF (heart failure with reduced ejection fraction) ICD (implantable cardioverter-defibrillator) in place CAD (coronary artery disease) Ischemic cardiomyopathy Congestive heart failure Surgical History History of surgery S/P MVR (mitral valve replacement) S/P CABG x 3 Family History Father No problems noted. Mother No problems noted. Family/Other CVD (cardiovascular disease) Social History Housing: House Alcohol intake: current Alcohol intake frequency: a few times a week Patient Tobacco Use Status: Current everyday Tobacco user Tobacco use type: Cigarette Cigarettes Per Day: 2 e-Cigarette/Vaping Use: Never Used Second Hand Smoke Exposure: Yes service: No Current occupational status: retired Current occupational exposures/hazards: No Cognitive needs: No Hearing needs: No Vision needs: Yes Office Procedures Cardiac Device Check Cardiac Device Check Details: Remote ICD report generated 12/12/2024. ICD function is adequate [id number] Cardiac Interrogation, implant defibrillator w/interim Procedure code (CPT) selection complete Assessment & Plan Assessment & Plan (1) ICD (implantable cardioverter-defibrillator) in place: Comment: Single-chamber [place] [employer] ICD for primary prevention Code(s): Z95.810 - Presence of automatic (implantable) cardiac defibrillator Category: Medical Plan: See above Coding Level of Care Code Procedure Only Diagnoses ICD (implantable cardioverter-defibrillator) in place Z95.810 CPT Codes Cardiac Device Check - Cardiac Device 13: [id number] Cardiac Interrogation, implant defibrillator w/interim ([id number])
== END ==
PROVIDERS: PCP Internal Medicine; Visit Provider Internal Medicine Cardiovascular Disease
DX: Z45.02 Encounter for adjustment and management of automatic implantable cardiac defibrillator (principal)
CPT/HCPCS: 93295

== ENCOUNTER → 2024-12-26 14:36 | Outpatient (BNVA) | payer MEDICARE, SELFPAY | PROVIDERS: PCP Internal Medicine; Visit Provider Nurse Practitioner Family | DX: I47.20 Ventricular tachycardia, unspecified (principal); Z95.810 Presence of automatic (implantable) cardiac defibrillator | CPT/HCPCS: 99212 ==

== ENCOUNTER 2024-12-26 15:02 | Outpatient (AMB) | payer MEDICARE, SELFPAY ==
--- NOTE | 2024-12-26 15:03 | MHC.OFFVIS ---
Intake Visit Reasons: device check reprogramming Allergies No Known Allergies Allergy (Mild, Verified 10/26/24 13:19) NONE HPI Comments Details: Patient came for device programming given that he had recent long 22nd episode of nonsustained VT. Patient's symptoms lightheadedness. He was brought in today for device check. [facility] Medical History Hyperlipidemia Hypertension CKD (chronic kidney disease) Chronic HFrEF (heart failure with reduced ejection fraction) ICD (implantable cardioverter-defibrillator) in place CAD (coronary artery disease) Ischemic cardiomyopathy Congestive heart failure Surgical History History of surgery S/P MVR (mitral valve replacement) S/P CABG x 3 Family History Father No problems noted. Mother No problems noted. Family/Other CVD (cardiovascular disease) Social History Housing: House Alcohol intake: current Alcohol intake frequency: a few times a week Patient Tobacco Use Status: Current everyday Tobacco user Tobacco use type: Cigarette Cigarettes Per Day: 2 e-Cigarette/Vaping Use: Never Used Second Hand Smoke Exposure: Yes service: No Current occupational status: retired Current occupational exposures/hazards: No Cognitive needs: No Hearing needs: No Vision needs: Yes Review of Systems Card Reports lightheadedness and Reports palpitations Endo Reports palpitations Physical Exam Chest Chest palpation & inspection: other (Device pocket looks okay) Office Procedures Cardiac Device Check Cardiac Device Check Details: Single-chamber [place] [employer] ICD in place. Programmed in VVI. Tachy therapies were reprogrammed. Monitor zone from 150 beats per minute. From 180 beats per minute, antitachycardia pacing was programmed prevent recurrent events and treat his early to prevent in secondary ventricular tachycardia/fibrillation. VFib therapy was unchanged. [id number] Cardiac Device Check, single lead implantable defibrillator Procedure code (CPT) selection complete Assessment & Plan Assessment & Plan (1) Ventricular tachycardia: Code(s): I47.20 - Ventricular tachycardia, unspecified Category: Medical Plan: Ventricular tachycardia in this elderly gentleman with ischemic cardiomyopathy with moderate LV systolic dysfunction. ICD was reprogrammed as above. Will continue monitor remotely. No additional therapy is recommended. Will follow up in the clinic in his usual follow-up visit. Coding Level of Care Code Est Pt Level 2 (08670) Complex EM visit Add On G2211 Diagnoses Ventricular tachycardia I47.20 CPT Codes Cardiac Device Check - Cardiac Device 4: 59934-UT Cardiac Device Check, single lead implantable defibrillator ([id number])
== END 2024-12-26 15:46 | disposition home or self-care (01) ==
LOC: HO.HCS 15:02
PROVIDERS: PCP Internal Medicine; Visit Provider Internal Medicine Cardiovascular Disease
DX: I47.20 Ventricular tachycardia, unspecified (principal)
CPT/HCPCS: 93282; 99212; G2211

== ENCOUNTER 2024-12-28 11:01 | Outpatient (AMB) | payer MEDICARE, SELFPAY ==
--- NOTE | 2024-12-28 11:07 | MHC.PC.OV ---
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 Required: No Accompanied by: Spouse Allergies No Known Allergies Allergy (Mild, Verified 12/28/24 11:18) NONE Medication List - Last Reconciled 12/29/24 by Emanuel Black MD amiodarone 200 mg orally Take 1 tablet twice daily for 1 month then reduce dose to 1 tablet daily; 90 days aspirin (Adult Low Dose Aspirin) 81 mg PO DAILY calcium carbonate (Calcium Antacid) mg PO TID PRN cholestyramine (with sugar) 4 gram 1 scoop orally 2 times a day; furosemide 80 mg (4 x 20 mg) PO DIRECTED PRN metoprolol tartrate 25 mg PO BID rosuvastatin 20 mg PO DAILY sevelamer carbonate 1,600 mg PO BID tramadol 50 mg PO TID PRN Tobacco use date assessed: 06/29/24 Dental Screening Dental Screen Date: 12/30/23 HPI ANNUAL HPI Details chronic renal failure on rx; hypertension and hyperlipidemia COUNTS INCLUDE 234 BEDS AT THE [facility] Medical History Hyperlipidemia Hypertension CKD (chronic kidney disease) Chronic HFrEF (heart failure with reduced ejection fraction) ICD (implantable cardioverter-defibrillator) in place CAD (coronary artery disease) Ischemic cardiomyopathy Congestive heart failure Surgical History History of surgery S/P MVR (mitral valve replacement) S/P CABG x 3 Family History Father No problems noted. Mother No problems noted. Family/Other CVD (cardiovascular disease) Social History Housing: House Alcohol intake: current Alcohol intake frequency: a few times a week Patient Tobacco Use Status: Current everyday Tobacco user Tobacco use type: Cigarette Cigarettes Per Day: 2 e-Cigarette/Vaping Use: Never Used Second Hand Smoke Exposure: Yes service: No Current occupational status: retired Current occupational exposures/hazards: No Cognitive needs: No Hearing needs: No Vision needs: Yes Questionnaire PHQ-9 Over the last 2 weeks, how often have you been bothered by any of the following problems? 1. Little interest or pleasure in doing things: not at all 2. Feeling down, depressed, or hopeless: not at all 3. Trouble falling or staying asleep, or sleeping too much: not at all 4. Feeling tired or having little energy: not at all 5. Poor appetite or overeating: not at all 6. Feeling bad about yourself - or that you are a failure or have let yourself or your family down: not at all 7. Trouble concentrating on things, such as reading the newspaper or watching television: not at all 8. Moving or speaking so slowly that other people could have noticed. Or the opposite - being so fidgety or restless that you have been moving around a lot more than usual: not at all 9. Thoughts that you would be better off or of hurting yourself in some way: not at all Total score: 0 Depression Screening Interpretation: Negative Depression Screening Done: Yes 74840 - PHQ-9 Billing: Yes Source: Developed by Drs. Shoaib Martell, Li Ness, Yoan Mccartney and colleagues, with an educational emelia from [employer]. Thrive Questionnaire Date Thrive assessed: 12/28/24 I am a: Patient What is your living situation today?: I have a steady place to live Within the past 12 months, did the food you bought not last and you didn't have the money to get more?: Never true Within the past 12 months, did you worry whether your food would run out before you got money to buy more?: Never true Do you have trouble paying for medicines?: No Do you have trouble getting transportation to medical appointments?: No Do you have trouble paying your heating and electricity bill?: No Do you have trouble taking care of your child, family member or friend?: No Do you have trouble with day-to-day activities such as bathing, preparing meals, shopping, managing finances, etc.?: No Are you currently unemployed and looking for a job?: No Are you interested in more education?: No Please select the resources that you would like help with: None Currently or been in a relationship where the following occur: No concerns reported THRIVE Score: 0 AUDIT C Alcohol Use Questionnaire (AUDIT-C) 1. How often do you have a drink containing alcohol?: Monthly or less 2. How many drinks containing alcohol do you have on a typical day when you are drinking?: 1 or 2 3. How often do you have six or more drinks on one occasion?: Never Total Score: 1 Score Reviewed/Action Taken: Yes LOULOU-7 AMB Questionnaire LOULOU-7 Date LOULOU - 7 assessed: 12/28/24 Feeling nervous, anxious, or on edge: 0 = Not at all Not being able to stop or control worryin = Not at all Worrying too much about different things: 0 = Not at all Trouble relaxin = Not at all Being so restless that it is hard to sit still: 0 = Not at all Becoming easily annoyed or irritable: 0 = Not at all Feeling afraid as if something awful might happen: 0 = Not at all Total LOULOU-7 score (0-4 normal; 5-9 mild; 10-14 moderate; 15-21 severe): 0 Source: Developed by Drs. Shoaib Martell, Li Ness, Yoan Mccartney and colleagues, with an educational emelia from [employer]. LOULOU-7 Assessment Billing LOULOU-7 Assessment Tool: LOULOU-7 Assessment 48277 Review of Systems Const Denies chills, Denies headache(s) and Denies weight loss ENT Denies headache(s) Card Denies chest pain, Denies syncope, Denies irregular heart rhythm and Denies dyspnea Resp Denies chest congestion, Denies cough and Denies dyspnea GI Denies abdominal pain, Denies change in stool character, Denies nausea and Denies vomiting Musc Denies deformity and Denies joint swelling Neuro Denies syncope and Denies headache(s) Physical exam (Primary Care) Vital Signs: Last Vital Signs Pulse 66 12/28/24 11:08 BP 138/72 12/28/24 11:08 Pulse Ox 100 12/28/24 11:08 Oxygen Delivery Method Room Air 12/28/24 11:08 BMI result Body Mass Index 21.1 Tobacco/Smoking Status: Tobacco use Status Tobacco use date assessed 06/29/24 12/28/24 11:07 Patient Tobacco Use Status Current everyday Tobacco 12/28/24 11:07 Tobacco use type Cigarette 12/28/24 11:07 e-Cigarette/Vaping Use Never Used 12/28/24 11:07 PHQ-9: PHQ-9 Score PHQ-9: Total score 0 12/28/24 11:19 Depression Screening Interpretation: Negative Thrive Assessment: Date of Thrive Assessment Date Thrive assessed 12/28/24 12/28/24 11:11 Currently or been in a relationship where the following occur: No concerns reported Const General: cooperative, comfortable, no acute distress and alert Neck Neck: Yes no lymphadenopathy Thyroid: Thyroid normal Resp Effort & Inspection: normal respiratory effort Auscultation: clear to auscultation bilaterally Percussion: percussion normal Cardio Jugular venous distension: no JVD Palpation: normal PMI Rate: regular rate Rhythm: regular rhythm Heart sounds: S1 normal heart sound present and S2 normal heart sound present GI Inspection: Yes normal to inspection Palpation (GI): No hepatosplenomegaly present Skin General skin exam: no rashes or lesions noted Extrem General: Yes no clubbing, cyanosis or edema Coding Level of Care Code Est Pt Level 3 (84376) Diagnoses CKD (chronic kidney disease) N18.9 Additional Codes LOULOU-7 Assessment Billing - LOULOU-7 Assessment Tool: LOULOU-7 Assessment 54419 ([id number]) PHQ-9 - 21642 - PHQ-9 Billing: Yes ([id number]) Assessment & Plan Assessment & Plan (1) CKD (chronic kidney disease): Code(s): N18.9 - Chronic kidney disease, unspecified Category: Medical Plan: continue dialysis
[2024-12-28 11:08] VITALS: BP 138/72; PULSE 66; O2SAT 100; BMI 21.1
--- OUTSIDE RECORDS SUMMARY | 2024-12-28 12:19 | XMS_ITS | Patient Health Record ---
Author Organization [facility] Address [address] [place] [address] Care Team Providers Care Beef Ribber Name Role Phone Emanuel Black MD Primary Care Provider Celeste Carl [phone] Reason For Referral No Information Medications Medication [...] Negative Encounters Encounter Location Date Provider Diagnosis [facility] [address] [place] [address] 02/11/2024 Celeste Liu Plan Of Treatment No Information Insurance Providers Payer Name Payer Address Payer Phone Subscriber Number Group Number Insured Name Patient Relationship to Insured Coverage Start Date Coverage End Date Medicare National [employer] [address] [facility] [address] [id number] Andrea Orozco Self - patient is the insured AARP Secondary to Medicare [address] [place] [address] [id number] Ernesto Andrea Self - patient is the insured Medical (General) History Medical History History ICD Code Arthritis Heart disease High blood pressure Kidney disease Numbness Poor circulation Vascular grafts Heart valve conditions/replacement Transfusions Surgical History Surgery Date(Month/Year) 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
--- OUTSIDE RECORDS SUMMARY | 2024-12-28 12:20 | XMS_ITS ---
Author Organization [facility] Address [address] [place] [address] Care Team Providers Care Ticket Sales Agent Name Role Phone Emanuel Black MD Primary Care Provider Celeste Carl [phone] Medications Medication SIG (Take, Route, Frequency, Duration) [...] 02/15/2024 Encounters Encounter Location Date Provider Diagnosis [facility] [address] [place] [address] 02/15/2024 Celeste Liu Plan Of Treatment No Information Progress Notes * Andrea OROZCODOB:[birth year] (79 yo M)Acc No.[id number]:02/15/2024 Progress Notes Patient:?Andrea OROZCO Provider:?Celeste Liu DPM :1945???Age:78 Y???Sex:Male David e:02/15/2024 Address:[address] [place] [address], [place], [place] Pcp:Emanuel Black MD Subjective: * Chief Complaints: [...] Liu DPM Date:?07/2024 Generated for Eliel galvan/Keanu/Donovan on:?12/28/2024 12:20 PM EST
--- OUTSIDE RECORDS SUMMARY | 2024-12-28 12:20 | XMS_ITS | Encounter Summary ---
Author Organization [facility]. Address [address] [address] Phone Care Team Providers Care Woodyard Crane Operator Name Role Phone Emanuel Black MD Primary Care Provider [phone] Encounter Details Date Type Department Care Team ([facility] st Contact Info) Description 11/29/2024 Treatment [facility]. [address] [address] Richmond Cole MD [address] [address] Social History Tobacco Use Types Packs/Day Years Used Date Smoking Tobacco: Some Days Cigarettes Smokeless Tobacco: Current Alcohol Use Standard Drinks/Week Comments Yes 0 (1 standard drink = 0.6 oz pure alcohol) Alcoholic Drinks/day: Occasional social drink Sex and Gender Information Value Date Recorded Sex Assigned at Not on file Legal Sex Male 4:53 PM EST Gender Identity Not on file Sexual Orientation Not on file documented as of this encounter Miscellaneous Notes * Dialysis Note - Richmond Cole MD - 11/29/2024 12:00 AM EST Patient: Andrea Orozco : 1945 Note Type: Dialysis Rounds-Basic Service Date: 11/29/2024 This patient was personally seen for a basic visit as part of routine monthly dialysis care for end stage renal disease. Attending Compliance Tester: RICHMOND COLE MD Dialysis Location: [facility] Schedule: Shift: 1 HOME MEDICATIONS Current [facility] Outpatient Medications acetaminophen (TYLENOL) tablet Take 650 mg by mouth every 8 (eight) hours if needed for mild pain Start Date: alendronate (FOSAMAX) tablet Reported on 06/29/2023 Start Date: aspirin EC tablet Take 1 tablet by mouth 1 (one) time each day Start Date: cholecalciferol (VITAMIN D-3) 50 MCG (1999) capsule TAKE 1 CAPSULE BY MOUTH DAILY Start Date: 03/01/2023 cholestyramine (QUESTRAN) powder 4 g MIX 1 SCOOP INTO WATER OR JUICE AND DRINK TWICE DAILY NEEDED Start Date: 01/19/2022 furosemide (Lasix) 20 MG tablet Take 2 tablets (40 mg total) by mouth in the morning and 2 tablets (40 mg total) in the evening. Start Date: 05/12/2024 hydrALAZINE 50 MG tablet TAKE 1 TABLET BY MOUTH EVERY MORNING, 1 TABLET BY MOUTH IN THE EVENING AND 1 TABLET BEFORE BEDTIME Start Date: 07/12/2023 magnesium oxide 400 (240 Mg) MG tablet Take 1 tablet by mouth 1 (one) time each day Start Date: 03/27/2024 metoprolol tartrate 25 MG tablet Take 1 tablet (25 mg total) by mouth in the morning and 1 tablet (25 mg total) in the evening. Start Date: 12/01/2023 ROSUVASTATIN CALCIUM 20 MG PO CPSP Take 20 mg by mouth 1 (one) time each day Start Date: 06/04/2022 traMADol (ULTRAM) 50 MG tablet Take 1 tablet (50 mg total) by mouth every 8 (eight) hours if needed for moderate pain Start Date: 05/17/2024 Current [facility] Epic Allergies Allergen: No Known Allergies ADEQUACY ASSESSMENT Kt/V, Natural Log 1.55 (11/15/24) 1.54 (10/18/24) 1.55 (09/13/24) UREA REDUCTION RATIO (%) 74 (11/15/24) 74 (10/18/24) 77 (09/13/24) BUN 47 (11/15/24) 47 (10/18/24) 44 (10/11/24) BUN Post Dialysis 12 (11/15/24) 12 (10/18/24) Test Canceled (10/11/24) Creatinine 6.17 (11/15/24) 6.24 (10/11/24) 6.14 (09/13/24) Bicarbonate (CO2) 22 (11/15/24) 21 (10/11/24) 24 (09/13/24) Sodium 138 (11/15/24) 133 (10/11/24) 138 (09/13/24) ANEMIA ASSESSMENT Hgb 10.1 (11/15/24) 10.9 (10/30/24) 11.2 (10/25/24) Iron Saturation (TSat) 30 (11/15/24) 18 (10/11/24) 18 (09/13/24) Ferritin 1,192 (11/15/24) 1,255 (10/11/24) 1,019 (09/13/24) Iron 98 (11/15/24) 60 (10/11/24) 60 (09/13/24) TIBC 326 (11/15/24) 336 (10/11/24) 325 (09/13/24) MCV 100.3 (11/15/24) 101.2 (10/11/24) 100.9 (09/13/24) Platelets 106 (11/15/24) 109 (10/11/24) 104 (09/13/24) BMM ASSESSMENT Calcium, Adjusted Total 8.0 11/15/24 8.4 10/11/24 8.8 09/13/24 Calcium 8.0 11/15/24 8.4 10/11/24 8.8 09/13/24 Phosphorus, Serum 5.0 11/15/24 6.8 10/11/24 4.1 09/13/24 Ca*PO4 40.0 11/15/24 57.1 10/11/24 36.1 09/13/24 PTH, Intact 468 11/15/24 Magnesium 1.7 11/15/24 2.0 10/11/24 2.0 09/13/24 Alkaline Phosphatase 122 11/15/24 129 10/11/24 119 09/13/24 Aluminum 8 11/15/24 NUTRITION ASSESSMENT Albumin 4.2 11/15/24 4.4 10/11/24 4.4 09/13/24 Potassium 4.3 11/15/24 4.6 10/11/24 4.3 09/13/24 ADDITIONAL LABS White Blood Cells 6.8 (11/15/24) 5.7 (10/11/24) 7.2 (09/13/24) Cholesterol 146 (11/15/24) HDL 49 (11/15/24) LDL-Calc 77 (11/15/24) Triglycerides 102 (11/15/24) Hep B Surface Antibody 7 (11/15/24) Uric Acid 4.6 (11/15/24) Signed by: RICHMOND COLE MD on 11/29/2024 at 09:09:38 AM documented in this encounter Plan of Treatment Not on file documented as of this encounter Visit Diagnoses Not on filedocumented in this encounter Care Teams Woodyard Crane Operator Relationship Specialty Start Date End Date Emanuel Black MD [address] [place], [place] PCP - General Internal Medicine 10/28/22 documented as of this encounter
--- OUTSIDE RECORDS SUMMARY | 2024-12-28 12:20 | XMS_ITS | Encounter Summary ---
Author Organization [facility] Address [address] [facility] [address] [place] [address] Phone Care Team Providers Care Risk Control Manager Name Role Phone Emanuel Black MD Primary Care Provider [phone] Reason for Visit * Reason Comments Med Refill Encounter Details Date Type Department Care Team (Late st Contact Info) Description 03/27/2024 Refill [email or web address] [address] [place] [phone] Dino Bray MD [address] [facility] [address] [place] [phone] Social History Tobacco Use Types Packs/Day Years [...] on file documented as of this encounter Plan of Treatment Not on file documented as of this encounter Visit Diagnoses Not on filedocumented in this encounter Care Teams Risk Control Manager Relationship Specialty Start Date End Date Emanuel Black MD [address] [place] [address] PCP - General Internal Medicine 10/28/22 documented as of this encounter
--- OUTSIDE RECORDS SUMMARY | 2024-12-28 12:20 | XMS_ITS | Encounter Summary ---
Author Organization [facility]. Address [address] [address] Phone Care Team Providers Care Claims Adjuster Supervisor Name Role Phone Emanuel Black MD Primary Care Provider [phone] Encounter Details Date Type Department Care Team ([facility] st Contact Info) Description 12/18/2024 Treatment [facility]. [address] [address] Richmond Cole MD [address] [address] Social History Tobacco Use Types [...] Dialysis Note - Richmond Cole MD - 12/18/2024 12:00 AM EST Patient: Andrea Orozco : 1945 Note Type: Dialysis Rounds-Basic Service Date: 12/18/2024 This patient was personally seen for a basic visit as part of routine monthly dialysis care for end stage renal disease. Attending Resource Program Teacher: RICHMOND COLE MD Dialysis Location: [facility] Schedule: Shift: 1 HOME MEDICATIONS [...] Known Allergies ADEQUACY ASSESSMENT Kt/V, Natural Log 1.67 (12/13/24) 1.55 (11/15/24) 1.54 (10/18/24) UREA REDUCTION RATIO (%) 76 (12/13/24) 74 (11/15/24) 74 (10/18/24) BUN 34 (12/13/24) 47 (11/15/24) 47 (10/18/24) BUN Post Dialysis 8 (12/13/24) 12 (11/15/24) 12 (10/18/24) Creatinine 5.95 (12/13/24) 6.17 (11/15/24) 6.24 (10/11/24) Bicarbonate (CO2) 24 (12/13/24) 22 (11/15/24) 21 (10/11/24) Sodium 136 (12/13/24) 138 (11/15/24) 133 (10/11/24) ANEMIA ASSESSMENT Hgb 10.9 (12/13/24) 10.1 (11/15/24) 10.9 (10/30/24) Iron Saturation (TSat) 25 (12/13/24) 30 (11/15/24) 18 (10/11/24) Ferritin 1,868 (12/13/24) 1,192 (11/15/24) 1,255 (10/11/24) Iron 79 (12/13/24) 98 (11/15/24) 60 (10/11/24) TIBC 322 (12/13/24) 326 (11/15/24) 336 (10/11/24) MCV 101.2 (12/13/24) 100.3 (11/15/24) 101.2 (10/11/24) Platelets 80 (12/13/24) 106 (11/15/24) 109 (10/11/24) BMM ASSESSMENT Calcium, Adjusted Total 8.4 12/13/24 8.0 11/15/24 8.4 10/11/24 Calcium 8.4 12/13/24 8.0 11/15/24 8.4 10/11/24 Phosphorus, Serum 4.6 12/13/24 5.0 11/15/24 6.8 10/11/24 Ca*PO4 38.6 12/13/24 40.0 11/15/24 57.1 10/11/24 PTH, Intact 468 11/15/24 Magnesium 1.7 12/13/24 1.7 11/15/24 2.0 10/11/24 Alkaline Phosphatase 105 12/13/24 122 11/15/24 129 10/11/24 Aluminum 8 11/15/24 NUTRITION ASSESSMENT Albumin 4.1 12/13/24 4.2 11/15/24 4.4 10/11/24 Potassium 4.3 12/13/24 4.3 11/15/24 4.6 10/11/24 ADDITIONAL LABS White Blood Cells 5.7 (12/13/24) 6.8 (11/15/24) 5.7 (10/11/24) Cholesterol 146 (11/15/24) HDL 49 (11/15/24) LDL-Calc 77 (11/15/24) Triglycerides 102 (11/15/24) Hep B Surface Antibody 7 (11/15/24) Uric Acid 4.6 (11/15/24) Signed by: RICHMOND COLE MD on 12/18/2024 at 09:00:41 AM documented in this encounter Plan of Treatment Not on file documented as of this encounter Visit Diagnoses Not on filedocumented in this encounter Care Teams Claims Adjuster Supervisor Relationship Specialty Start Date End Date Emanuel Black MD [address] [place], [place] PCP - General Internal Medicine 10/28/22 documented as of this encounter
--- OUTSIDE RECORDS SUMMARY | 2024-12-28 12:20 | XMS_ITS | Encounter Summary ---
Author Organization [facility]. Address [address] [address] Phone Care Team Providers Care Value Stream Manager Name Role Phone Emanuel Black MD Primary Care Provider Encounter Details Date Type Department Care Team ([facility] st Contact Info) Description 12/27/2024 Treatment [facility]. [address] [address] Richmond Cole MD [address] [address] Social History Tobacco Use Types [...] Dialysis Note - Richmond Cole MD - 12/27/2024 12:00 AM EST Patient: Andrea Orozco : 1945 Note Type: Dialysis Rounds-Basic Service Date: 12/27/2024 This patient was personally seen for a basic visit as part of routine monthly dialysis care for end stage renal disease. Attending Life Coach: RICHMOND COLE MD Dialysis Location: [facility] Schedule: Shift: 1 HOME MEDICATIONS Current [...] if needed for moderate pain Start Date: 12/20/2024 Current [facility] Epic Allergies Allergen: No Known [...] (11/15/24) Signed by: RICHMOND COLE MD on 12/27/2024 at 09:15:17 AM documented in this encounter Plan of Treatment Not on file documented as of this encounter Visit Diagnoses Not on filedocumented in this encounter Care Teams Value Stream Manager Relationship Specialty Start Date End Date Emanuel Black MD [address] [place], [place] PCP - General Internal Medicine 10/28/22 documented as of this encounter
--- OUTSIDE RECORDS SUMMARY | 2024-12-28 12:20 | XMS_ITS | Encounter Summary ---
Author Organization [facility] Address [address] [place] [address] Phone Care Team Providers Care Departmental Buyer Name Role Phone Emanuel Black MD Primary Care Provider [phone] Encounter Details Date Type Department Care Team (Late st Contact Info) Description 01/26/2022 Office Communication [facility] [address] [place] [phone] Carl Kyle MD Social History Tobacco Use Types Packs/Day Years Used Date Smoking Tobacco: Some Days Alcohol Use Standard Drinks/Week Comments Yes 0 (1 standard drink = 0.6 oz pure alcohol) Alcoholic Drinks/day: Occasional social drink Sex and Gender Information Value Date Recorded Sex Assigned at Not on file Legal Sex Male 4:53 PM EST Gender Identity Not on file Sexual Orientation Not on file documented as of this encounter Miscellaneous Notes * Telephone Encounter - Mony Frye - 01/26/2022 2:36 PM EDT Pt called, you called him last week to schedule a NPV however I dont see his packet scanned documented in this encounter Plan of Treatment Not on file documented as of this encounter Visit Diagnoses Not on filedocumented in this encounter Care Teams Departmental Buyer Relationship Specialty Start Date End Date Emanuel Black MD [address] [place] [address] PCP - General Internal Medicine 10/28/22 documented as of this encounter
--- OUTSIDE RECORDS SUMMARY | 2024-12-28 12:20 | XMS_ITS | Encounter Summary ---
Author Organization [facility]. Address [address] [address] Phone Care Team Providers Care Supervisor Sanding Name Role Phone Emanuel Black MD Primary Care Provider [phone] Encounter Details Date Type Department Care Team ([facility] st Contact Info) Description 12/13/2024 Treatment [facility]. [address] [address] Richmond Cole MD [address] [address] Social History Tobacco Use Types [...] Dialysis Note - Richmond Cole MD - 12/13/2024 12:00 AM EST Patient: Andrea Orozco : 1945 Note Type: Dialysis Rounds-Comp Service Date: 12/13/2024 This patient was personally seen for a complete visit as part of routine monthly dialysis care for end stage renal disease. Attending Manager Transit: RICHMOND COLE MD Dialysis Location: [facility] Schedule: Shift: 1 OVERVIEW Patient is stable. HOME MEDICATIONS Medications reviewed. Current [facility] Outpatient Medications acetaminophen (TYLENOL) tablet Take 650 mg by mouth every 8 (eight) hours if needed for mild pain Start Date: alendronate (FOSAMAX) tablet Reported on 06/29/2023 Start Date: aspirin EC tablet Take 1 tablet by mouth 1 (one) time each day Start Date: cholecalciferol (VITAMIN D-3) 50 MCG (1999 [place]) capsule TAKE 1 CAPSULE BY MOUTH DAILY [...] [facility] Allergies Allergen: No Known Allergies BP AND FLUID ASSESSMENT Acceptable blood pressure. Fluid status acceptable. ADEQUACY ASSESSMENT Target met. Prescription compliance acceptable. Continue with greater than 3x more frequent dialysis prescription. Kt/V, Natural Log 1.55 (11/15/24) 1.54 (10/18/24) 1.55 (09/13/24) UREA REDUCTION RATIO (%) 74 (11/15/24) 74 (10/18/24) 77 (09/13/24) BUN 47 (11/15/24) 47 (10/18/24) 44 (10/11/24) BUN Post Dialysis 12 (11/15/24) 12 (10/18/24) Test Canceled (10/11/24) Creatinine 6.17 (11/15/24) 6.24 (10/11/24) 6.14 (09/13/24) Bicarbonate (CO2) 22 (11/15/24) 21 (10/11/24) 24 (09/13/24) Sodium 138 (11/15/24) 133 (10/11/24) 138 (09/13/24) ACCESS ASSESSMENT Vascular access examined. ANEMIA ASSESSMENT MACARIO adjusted per protocol. Iron adjusted per protocol. Hgb 10.1 (11/15/24) 10.9 (10/30/24) 11.2 (10/25/24) Iron Saturation (TSat) 30 (11/15/24) 18 (10/11/24) 18 (09/13/24) Ferritin 1,192 (11/15/24) 1,255 (10/11/24) 1,019 (09/13/24) Iron 98 (11/15/24) 60 (10/11/24) 60 (09/13/24) TIBC 326 (11/15/24) 336 (10/11/24) 325 (09/13/24) MCV 100.3 (11/15/24) 101.2 (10/11/24) 100.9 (09/13/24) Platelets 106 (11/15/24) 109 (10/11/24) 104 (09/13/24) BMM ASSESSMENT Bone and mineral metabolism parameters reviewed. Calcium, Adjusted Total 8.0 11/15/24 8.4 10/11/24 8.8 09/13/24 Calcium 8.0 11/15/24 8.4 10/11/24 8.8 09/13/24 Phosphorus, Serum 5.0 11/15/24 6.8 10/11/24 4.1 09/13/24 Ca*PO4 40.0 11/15/24 57.1 10/11/24 36.1 09/13/24 PTH, Intact 468 11/15/24 Magnesium 1.7 11/15/24 2.0 10/11/24 2.0 09/13/24 Alkaline Phosphatase 122 11/15/24 129 10/11/24 119 09/13/24 Aluminum 8 11/15/24 NUTRITION ASSESSMENT Albumin at goal. Albumin 4.2 11/15/24 4.4 10/11/24 4.4 09/13/24 Potassium 4.3 11/15/24 4.6 10/11/24 4.3 09/13/24 PHYSICAL EXAM Exam not performed. ADDITIONAL LABS White Blood Cells 6.8 (11/15/24) 5.7 (10/11/24) 7.2 (09/13/24) Cholesterol 146 (11/15/24) HDL 49 (11/15/24) LDL-Calc 77 (11/15/24) Triglycerides 102 (11/15/24) Hep B Surface Antibody 7 (11/15/24) Uric Acid 4.6 (11/15/24) Signed by: RICHMOND COLE MD on 12/13/2024 at 08:32:23 AM documented in this encounter Plan of Treatment Not on file documented as of this encounter Visit Diagnoses Not on filedocumented in this encounter Care Teams Supervisor Sanding Relationship Specialty Start Date End Date Emanuel Black MD [address] [place] [address] PCP - General Internal Medicine 10/28/22 documented as of this encounter
--- OUTSIDE RECORDS SUMMARY | 2024-12-28 12:20 | XMS_ITS ---
Author Organization [facility] Address [address] [place] [address] Care Team Providers Care Tray Filler Name Role Phone Emanuel Black MD Primary Care Provider Celeste Carl [phone] REASON FOR VISIT Cancel Encounters Encounter Location Date Provider Diagnosis [facility] [address] [place] [address] 02/11/2024 Celeste Liu Plan Of Treatment No Information Progress Notes * Andrea OROZCODOB:[birth year] (78 yo M)Acc No.[id number]:02/11/2024 Patient:?Andrea Orozco :1945???Age:78 Y???Sex:Male Address:[address] [place], [place] [address] [address] * true * Date:? Generated for Printi cole/Keanu/eTransmitting on:?12/28/2024 12:19 PM EST
--- OUTSIDE RECORDS SUMMARY | 2024-12-28 12:20 | XMS_ITS | Encounter Summary ---
Author Organization [facility] Address [address] [facility] [address] [place] [address] Phone Care Team Providers Care Passenger Tire Inspector Name Role Phone Emanuel Black MD Primary Care Provider [phone] Reason for Visit * Reason Onset Date Comments Med Refill 03/09/2022 Encounter Details Date Type Department Care Team (Late st Contact Info) Description 03/09/2022 Telephone [facility] [address] [facility] [address] [place] [address] Carl Kyle MD Med Refill Social History Tobacco Use Types Packs/Day Years [...] encounter Miscellaneous Notes * Telephone Encounter - Genia Brown MA - 03/17/2022 11:39 AM EDT OK OVER THE PHONE * Telephone Encounter - Mony Frye - 03/09/2022 3:55 PM EDT Pts pharmacy called, the pt requests for the rosuvastatin to be sent over as one, 10 mg tablets daily instead of two, 5 mg tabs daily because they are finding it difficult to take 2 pils at once. Please send to the [facility] on [address] in [place] Thank you documented in this encounter Plan of Treatment Not on file documented as of this encounter Visit Diagnoses Not on filedocumented in this encounter Care Teams Passenger Tire Inspector Relationship Specialty Start Date End Date Emanuel Black MD [address] [place], [place] PCP - General Internal Medicine 10/28/22 documented as of this encounter
--- OUTSIDE RECORDS SUMMARY | 2024-12-28 12:20 | XMS_ITS | Encounter Summary ---
Author Organization [facility]. Address [address] [address] Phone Care Team Providers Care Scalp Treatment Operator Name Role Phone Emanuel Black MD Primary Care Provider [phone] Encounter Details Date Type Department Care Team ([facility] st Contact Info) Description 12/06/2024 Treatment [facility]. [address] [address] Richmond Cole MD [address] [address] Social History Tobacco Use Types [...] Dialysis Note - Richmond Cole MD - 12/06/2024 12:00 AM EST Patient: Andrea Orozco : 1945 Note Type: Dialysis Rounds-Basic Service Date: 12/06/2024 This patient was personally seen for a basic visit as part of routine monthly dialysis care for end stage renal disease. Attending Sales Closer: RICHMOND COLE MD Dialysis Location: [facility] Schedule: Shift: 1 HOME MEDICATIONS [...] (11/15/24) Signed by: RICHMOND COLE MD on 12/06/2024 at 08:09:24 AM documented in this encounter Plan of Treatment Not on file documented as of this encounter Visit Diagnoses Not on filedocumented in this encounter Care Teams Scalp Treatment Operator Relationship Specialty Start Date End Date Emanuel Black MD [address] [place], [place] PCP - General Internal Medicine 10/28/22 documented as of this encounter
--- OUTSIDE RECORDS SUMMARY | 2024-12-28 12:20 | XMS_ITS | Clinical Summary ---
Author Organization [facility] Address [address] [facility] [address] [place] [address] Phone Care Team Providers [employer] Underwriter Name Role Phone Emanuel Black MD Primary Care Provider [phone] Allergies No known active allergies Medications aspirin (ST FANNY) 81 MG EC tablet Take 1 tablet by mouth 1 (one) time each day Active cholestyramine (QUESTRAN) 4 GM/DOSE powder MIX 1 SCOOP INTO WATER OR JUICE AND DRINK TWICE DAILY NEEDED 2 Active Rosuvastatin Calcium 20 MG capsule sprinkle Take 20 mg by mouth 1 (one) time each day 2 Active cholecalciferol (VITAMIN D-3) 50 MCG (1999) capsule TAKE 1 CAPSULE BY MOUTH DAILY 90 capsule 3 3 Active alendronate (FOSAMAX) 10 MG tabletIndicatio ns:for 7 days Take 10 mg by mouth 1 (one) time each day before breakfast Take in the morning with a full glass of water, on an empty stomach, and do not take anything else by mouth or lie down for the next 30 min. Active hydrALAZINE 50 MG tablet TAKE 1 TABLET BY MOUTH EVERY MORNING, 1 TABLET BY MOUTH IN THE EVENING AND 1 TABLET BEFORE BEDTIME 270 tablet 3 3 Active acetaminophen (TYLENOL) 325 MG tablet Take 650 mg by mouth every 8 (eight) hours if needed for mild pain Active metoprolol tartrate 25 MG tablet Take 1 tablet (25 mg total) by mouth in the morning and 1 tablet (25 mg total) in the evening. 180 tablet 3 4 Active magnesium oxide 400 (240 Mg) MG tablet Take 1 tablet by mouth 1 (one) time each day 90 tablet 3 4 Active furosemide (Lasix) 20 MG tablet Take 2 tablets (40 mg total) by mouth in the morning and 2 tablets (40 mg total) in the evening. 360 tablet 3 4 Active traMADol (ULTRAM) 50 MG tablet Take 1 tablet (50 mg total) by mouth every 8 (eight) hours if needed for moderate pain 30 tablet 5 5 Active traMADol (ULTRAM) 50 MG tablet Take 1 tablet (50 mg total) by mouth every 8 (eight) hours if needed for moderate pain 30 tablet 5 4 12/18/19 25 Discontinu ed(Reorder (does not appear on AVS)) traMADol (ULTRAM) 50 MG tablet Take 1 tablet (50 mg total) by mouth every 8 (eight) hours if needed for moderate pain 30 tablet 5 5 12/18/19 25 Discontinu ed(Reorder (does not appear on AVS)) traMADol (ULTRAM) 50 MG tablet Take 1 tablet (50 mg total) by mouth every 8 (eight) hours if needed for moderate pain 30 tablet 5 5 12/18/19 25 Discontinu ed(Reorder (does not appear on AVS)) traMADol (ULTRAM) 50 MG tablet Take 1 tablet (50 mg total) by mouth every 8 (eight) hours if needed for moderate pain 30 tablet 5 5 12/18/19 25 Discontinu ed(Reorder (does not appear on AVS)) traMADol (ULTRAM) 50 MG tablet Take 1 tablet (50 mg total) by mouth every 8 (eight) hours if needed for moderate pain 30 tablet 5 5 12/20/19 25 Discontinu ed(Reorder (does not appear on AVS)) traMADol (ULTRAM) 50 MG tablet Take 1 tablet (50 mg total) by mouth every 8 (eight) hours if needed for moderate pain 30 tablet 5 5 12/20/19 25 Discontinu ed(Reorder (does not appear on AVS)) Active Problems Problem Noted Date Diagnosed Date Anemia in chronic kidney disease 06/30/2022 Cardiorenal syndrome 03/09/2022 Localized edema 03/09/2022 Secondary hyperparathyroidism 03/09/2022 Proteinuria, not otherwise specified 03/09/2022 Ischemic nephropathy 03/09/2022 Abdominal aortic aneurysm 02/03/2022 Stage 5 chronic kidney disease 02/03/2022 Congestive heart failure 02/03/2022 Right bundle-branch block 02/03/2022 Coronary arteriosclerosis 02/03/2022 Emphysema 02/03/2022 Dyslipidemia 02/03/2022 Irritable bowel syndrome 02/03/2022 Mitral valve regurgitation 02/03/2022 Multiple nodules of lung 02/03/2022 Seizure 02/03/2022 Thyroid nodule 02/03/2022 Overview (02/03/2022): . Resolved Problems Problem Noted Date Diagnosed Date Resolved Date Anemia 02/03/2022 06/30/2022 Dyspnea on exertion 02/03/2022 01/27/20 Fracture of rib 02/03/2022 01/26/2023 History of cataract extraction 02/03/2022 06/30/2022 Hypertensive disorder 02/03/20222021 [facility]/03/2022 08/30/2023 Kyphosis of thoracic spine 02/03/2022 0 06/30/2022 Tobacco use and exposure - finding 02/03/2022 06/30/2022 Encounters Date Type Department Care Team Description 12/27/2024 Treatment [facility] [address] [address] Brandon Gongora MD 12/18/2024 [facility] [address] [address] Brandon Gongora MD 12/13/2024 Orders Only [facility] [address] [address] Brandon Gongora MD 12/13/2024 Treatment [facility] [address] [address] Brandon Gongora MD 12/06/2024 Treatment [facility] [address] [address] Brandon Gongora MD 11/29/2024 Treatment [facility] [address] [address] Brandon Gongora MD 11/22/2024 Treatment [facility] [address] [address] Brandon Gongora MD 11/15/2024 Treatment [facility] [address] [address] Brandon Gongora MD 10/31/2024 Treatment [facility] [address] [address] Brandon Gongora MD 10/25/2024 Treatment [facility] [address] [address] Brandon Gongora MD 10/18/2024 Treatment [facility] [address] [address] Brandon Gongora MD 10/09/2024 Treatment [facility] [address] [address] Brandon Gongora MD 09/27/2024 Treatment [facility] [address] [address] Brandon Gongora MD from Last 3 Months Immunizations Name Administration Dates Next Due Pneumococcal Conjugate 13-Valent 09/03/2018 Family History Medical History Relation Comments Heart disease Father Heart disease Sibling Relation Status Comments Father Unknown Sibling Social History Tobacco Use Types Packs/Day Years [...] on file Sexual Orientation Not on file Last Filed Vital Signs Vital Sign Reading Time Taken Comments Blood Pressure 144/62 08/30/2023 8:16 AM EDT Pulse 52 08/30/2023 8:16 AM EDT Temperature - - Respiratory Rate - - Oxygen Saturation 98% 08/30/2023 8:16 AM EDT Inhaled Oxygen Concentration - - Weight 68.6 kg (151 lb 3.2 oz) 08/30/2023 8:16 A M EDT Height 172.7 cm (5' 8 ) 08/30/2023 8:16 AM EDT Body Mass Index 22.99 08/30/2023 8:16 AM EDT Plan of Treatment Health Maintenance Due Date Last Done Comments Hepatitis B Vaccine (1 of 5 - Risk Dialysis 4-dose series) 1965 Pneumococcal Vaccine: 65+ Ye ars (2 of 2 - PPSV23 or PCV20) 10/29/2018 09/03/2018 Influenza Vaccine (#1) 2024 Procedures Procedure Name Priority Date/Time Associated Diagnosis Comments HEMOGLOBIN Routine 12/25/2024 3:00 AM EST FERRITIN Routine 12/13/2024 3:00 AM EST HEPATITIS B SURFACE ANTIGEN W/REFL CONFIRM Routine 12/13/2024 3:00 AM EST PROTEIN, TOTAL, SERUM Routine 12/13/2024 3:00 AM EST TRANSFERRIN SATURATION Routine 3:00 AM EST ELECTROLYTE PANEL Routine 12/13/2024 3:0 0 AM EST MAGNESIUM Routine 12/13/2024 3:00 AM EST LIH (HC) Routine 12/13/2024 3:00 AM EST GLUCOSE, RANDOM Routine 12/13/2024 3:00 AM EST LACTATE DEHYDROGENASE Routine 12/13/2024 3:00 AM EST CREATININE, SERUM Routine 12/13/2024 3:0 0 AM EST BILIRUBIN, TOTAL Routine 12/13/2024 3:00 AM EST AST Routine 12/13/2024 3:00 AM EST ALT Routine 12/13/2024 3:00 AM EST ALKALINE PHOSPHATASE Routine 12/13/2024 3:00 AM EST CALCIUM PHOSPHORUS PRODUCT, ADJUSTED (HC) Routine 12/13/2024 3:00 AM EST KT/V NATURAL LOG, URR (HC) Routine 12/13/2024 3:00 AM EST CBC AND DIFFERENTIAL Routine 12/13/2024 3:00 AM EST ALUMINUM LEVEL Routine 11/15/2024 3:00 AM EST CONFIRMATION TEST HCV Routine 11/15/2024 3:00 AM EST HEPATITIS C ABS W/REFLEX RNA DETECTR Routine 11/15/2024 3:00 AM EST HEPATITIS B SURFACE ANTIGEN W/REFL CONFIRM Routine 11/15/2024 3:00 AM EST FERRITIN Routine 11/15/2024 3:00 AM EST HEPATITIS B SURFACE ANTIBODY QUANT Routine 11/15/2024 3:00 AM EST URIC ACID Routine 11/15/2024 3:00 AM EST TRANSFERRIN SATURATION Routine 3:00 AM EST PROTEIN, TOTAL, SERUM Routine 11/15/2024 3:00 AM EST MAGNESIUM Routine 11/15/2024 3:00 AM EST ELECTROLYTE PANEL Routine 11/15/2024 3:0 0 AM EST LIPID PANEL Routine 11/15/2024 3:00 AM EST LIH (HC) Routine 11/15/2024 3:00 AM EST LACTATE DEHYDROGENASE Routine 11/15/2024 3:00 AM EST GLUCOSE, RANDOM Routine 11/15/2024 3:00 AM EST CREATININE, SERUM Routine 11/15/2024 3:0 0 AM EST BILIRUBIN, TOTAL Routine 11/15/2024 3:00 AM EST ALT Routine 11/15/2024 3:00 AM EST AST Routine 11/15/2024 3:00 AM EST ALKALINE PHOSPHATASE Routine 11/15/2024 3:00 AM EST CALCIUM PHOSPHORUS PRODUCT, ADJUSTED (HC) Routine 11/15/2024 3:00 AM EST PTH, INTACT Routine 11/15/2024 3:00 AM EST CBC AND DIFFERENTIAL Routine 11/15/2024 3:00 AM EST KT/V NATURAL LOG, URR (HC) Routine 11/15/2024 3:00 AM EST HEMOGLOBIN Routine 10/30/2024 3:00 AM EST HEMOGLOBIN Routine 10/25/2024 3:00 AM EST LIH (HC) Routine 10/18/2024 3:00 AM EST KT/V NATURAL LOG, URR (HC) Routine 10/18/2024 3:00 AM EST UNSPUN TUBE (HC) Routine 10/11/2024 3:00 AM EST HEPATITIS B SURFACE ANTIGEN W/REFL CONFIRM Routine 10/11/2024 3:00 AM EST FERRITIN Routine 10/11/2024 3:00 AM EST PROTEIN, TOTAL, SERUM Routine 10/11/2024 3:00 AM EST TRANSFERRIN SATURATION Routine 3:00 AM EST ELECTROLYTE PANEL Routine 10/11/2024 3:0 0 AM EST MAGNESIUM Routine 10/11/2024 3:00 AM EST LACTATE DEHYDROGENASE Routine 10/11/2024 3:00 AM EST LIH (HC) Routine 10/11/2024 3:00 AM EST GLUCOSE, RANDOM Routine 10/11/2024 3:00 AM EST BILIRUBIN, TOTAL Routine 10/11/2024 3:00 AM EST CREATININE, SERUM Routine 10/11/2024 3:0 0 AM EST AST Routine 10/11/2024 3:00 AM EST ALKALINE PHOSPHATASE Routine 10/11/2024 3:00 AM EST ALT Routine 10/11/2024 3:00 AM EST CALCIUM PHOSPHORUS PRODUCT, ADJUSTED (HC) Routine 10/11/2024 3:00 AM EST CBC AND DIFFERENTIAL Routine 10/11/2024 3:00 AM EST KT/V NATURAL LOG, URR (HC) Routine 10/11/2024 3:00 AM EST from Last 3 Months Results * (ABNORMAL) Hemoglobin (12/25/2024 3:00 AM EST) Only the most recent of3 resultswithin the time period is included. Pathologist [facility] Hgb 6.9(L) 13.7 - 17.5 g/dL [facility] Comment: ALERT: Result verified by repeat analysis with no evidence of clotting detected. Consider other preanalytical factors such as sample dilution/contamination as a possible cause. Clinical correlation with redraw recommended if not consistent with patient history. Hemoglobin x 3 20.7(L) 41.1 - 52.5 g/dL [facility] 12/25/2024 3:00 AM EST 12/27/2024 12:52 PM EST us Brandon Gongora MD LAB BLOOD ORDERABLES Final Resul t Performing Organization Address [facility] Co de Phone Number [facility] [address] [place] [address] * LIH (12/13/2024 3:00 AM EST) Only the most recent of4 resultswithin the time period is included. Pathologist [facility] Lipemia Normal Normal [facility] Icterus Normal Normal [facility] Hemolysis Normal Normal [facility] 12/13/2024 3:00 AM EST 12/14/2024 12:58 PM EST us Brandon Gongora MD LAB [id number] ICITED RESULTS Final Result Performing Organization Address City/[facility] de Phone Number [facility] [address] [place] [address] * (ABNORMAL) Kt/V Natural Log, URR (12/13/2024 3:00 AM EST) Only the most recent of4 resultswithin the time period is included. Pathologist [facility] Treatment Time 233 min [facility] Pre-Weight, lb 62.8 kg [facility] Post-Weight, lb 61.3 kg [facility] Ultrafiltration Rate 6 <=13 mL/kg/hr [facility] Comment: Recommend achieving Ultrafiltration Rate (UFR) <=10 mL/kg/hr References: Rashad JOHNSTON et al. Kidney Int. 2010; 79(2):250-257 BUN 34(H) 7 - 25 mg/dL [facility] BUN Post Dialysis 8 7 - 25 mg/dL [facility] UREA REDUCTION RATIO (%) 76 >=65 % [facility] Kt/V Natural Log 1.67 >=1.2 [facility] 12/13/2024 3:00 AM EST 12/14/2024 12:58 PM EST Brandon Gongora MD LAB [id number] ICITED RESULTS Final Result Performing Organization Address [facility] Co de Phone Number [facility] [address] [place] [address] * (ABNORMAL) Calcium Phosphorus Product, Adjusted (12/13/2024 3:00 AM EST) Only the most recent of3 resultswithin the time period is included. Albumin 4.1 3.6 - 5.4 g/dL [facility] Calcium 8.4(L) 8.6 - 10.3 mg/dL [facility] Phosphorus, Serum 4.6 2.5 - 5.0 mg/dL [facility] Ca*PO4 38.6 <55.0 mg2/dL2 [facility] Calcium, Adjusted Total 8.4(L) 8.6 - 10.3 mg/dL [facility] CA*PO4 CORRCTD 38.6 <55.0 mg2/dL2 [facility] 12/13/2024 3:00 AM EST 12/14/2024 12:58 PM EST Brandon Gongora MD LAB [id number] ICITED RESULTS Final Result Performing Organization Address City/[facility]/ZIP Co de Phone Number [facility] [address] [place] [address] * Hepatitis B Surface Ag w/Reflex Confirmation (12/13/2024 3:00 AM EST) Only the most recent of3 resultswithin the time period is included. Hep B Surface Antigen Negative Negative [facility] 12/13/2024 3:00 AM EST 12/14/2024 12:58 PM EST us Brandon Gongora MD LAB BLOOD ORDERABLES Final Resul t Performing Organization Address City/[facility]/ZIP Co de Phone Number [facility] [address] [place] [address] * TSAT (12/13/2024 3:00 AM EST) Only the most recent of3 resultswithin the time period is included. [facility] Iron 79 65 - 175 ug/dL [facility] Transferrin 230 215 - 365 mg/dL [facility] TIBC 322 211 - 406 ug/dL [facility] Iron Saturation (TSat) 25 22 - 52 % [facility] 12/13/2024 3:00 AM EST 12/14/2024 12:58 PM EST us Brandon Gongora MD LAB BLOOD ORDERABLES Final Resul t Performing Organization Address [facility] de Phone Number [facility] [address] [place] [address] * (ABNORMAL) CBC and Differential (12/13/2024 3:00 AM EST) Only the most recent of3 resultswithin the time period is included. [facility] DIFFERENTIAL MANUAL, 2 Not Indicated [facility] White Blood Cells 5.7 4.2 - 9.1 K/uL [facility] RBC 3.30(L) 4.63 - 6.08 M/uL [facility] Hgb 10.9(L) 13.7 - 17.5 g/dL [facility] Hemoglobin x 3 32.7(L) 41.1 - 52.5 g/dL [facility] Hematocrit 33.4(L) 40.1 - 51.0 % [facility] MCV 101.2(H) 79.0 - 92.2 fL [facility] MCH 33.0(H) 25.7 - 32.2 pg [facility] MCHC 32.6 32.3 - 36.5 g/dL [facility] Platelets 80(L) 163 - 337 K/uL [facility] RDW 13.5 11.6 - 14.4 % [facility] Neutrophils Relative 66.7 34.0 - 67.9 % [facility] Lymphocytes Relative 18.9(L) 21.8 - 53.1 % [facility] Monocytes 8.9 5.3 - 12.2 % [facility] Eosinophils Relative 3.7 0.8 - 7.0 % [facility] Basophils Relative 0.9 0.2 - 1.2 % [facility] Immature Granulocytes 0.9 0.0 - 1.0 % [facility] 12/13/2024 3:00 AM EST 12/14/2024 12:46 PM EST us Brandon Gongora MD LAB BLOOD ORDERABLES Final Resul t Performing Organization Address [facility] Co de Phone Number [facility] [address] [place] [address] * ALT (12/13/2024 3:00 AM EST) Only the most recent of3 resultswithin the time period is included. ALT (SGPT) 14 10 - 49 U/L [facility] 12/13/2024 3:00 AM EST 12/14/2024 12:58 PM EST us Brandon Gongora MD LAB BLOOD ORDERABLES Final Resul t Performing Organization Address [facility] de Phone Number [facility] [address] [place] [address] * AST (12/13/2024 3:00 AM EST) Only the most recent of3 resultswithin the time period is included. AST (SGOT) 17 <34 U/L [facility] 12/13/2024 3:00 AM EST 12/14/2024 12:58 PM EST us Brandon Gongora MD LAB BLOOD ORDERABLES Final Resul t Performing Organization Address [facility] de Phone Number [facility] [address] [place] [address] * Protein, total (12/13/2024 3:00 AM EST) Only the most recent of3 resultswithin the time period is included. Total Protein 6.9 6.4 - 8.9 g/dL [facility] 12/13/2024 3:00 AM EST 12/14/2024 12:58 PM EST us Brandon Gongora MD LAB BLOOD ORDERABLES Final Resul t Performing Organization Address [facility] de Phone Number [facility] [address] [place] [address] * Alkaline phosphatase (12/13/2024 3:00 AM EST) Only the most recent of3 resultswithin the time period is included. Alkaline Phosphatase 105 46 - 116 U/L [facility] 12/13/2024 3:00 AM EST 12/14/2024 12:58 PM EST us Brandon Gongora MD LAB BLOOD ORDERABLES Final Resul t Performing Organization Address [facility] Phone Number [facility] [address] [place] [address] * (ABNORMAL) Magnesium (12/13/2024 3:00 AM EST) Only the most recent of3 resultswithin the time period is included. Magnesium 1.7(L) 1.9 - 2.7 mg/dL [facility] 12/13/2024 3:00 AM EST 12/14/2024 12:58 PM EST us Brandon Gongora MD LAB BLOOD ORDERABLES Final Resul t Performing Organization Address [facility] de Phone Number [facility] [address] [place] [address] * Lactate dehydrogenase (12/13/2024 3:00 AM EST) Only the most recent of3 resultswithin the time period is included. LDH 213 120 - 246 U/L [facility] 12/13/2024 3:00 AM EST 12/14/2024 12:58 PM EST us Brandon Gongora MD LAB BLOOD ORDERABLES Final Resul t Performing Organization Address [facility] de Phone Number [facility] [address] [place] [address] * Glucose, random (12/13/2024 3:00 AM EST) Only the most recent of3 resultswithin the time period is included. Glucose 94 74 - 109 mg/dL [facility] 12/13/2024 3:00 AM EST 12/14/2024 12:58 PM EST us Brandon Gongora MD LAB BLOOD ORDERABLES Final Resul t Performing Organization Address City/[facility] Co de Phone Number [facility] [address] [place] [address] * (ABNORMAL) Ferritin (12/13/2024 3:00 AM EST) Only the most recent of3 resultswithin the time period is included. Ferritin 1,868(H) 22 - 322 ng/mL [facility] 12/13/2024 3:00 AM EST 12/14/2024 12:58 PM EST us Brandon Gongora MD LAB BLOOD ORDERABLES Final Resul t Performing Organization Address [facility] de Phone Number [address] [address] * (ABNORMAL) Creatinine, serum (12/13/2024 3:00 AM EST) Only the most recent of3 resultswithin the time period is included. Creatinine 5.95(H) 0.70 - 1.30 mg/dL [facility] 12/13/2024 3:00 AM EST 12/14/2024 12:58 PM EST us Brandon Gongora MD LAB BLOOD ORDERABLES Final Resul t Performing Organization Address [facility] Co de Phone Number [address] [address] * (ABNORMAL) Bilirubin, total (12/13/2024 3:00 AM EST) Only the most recent of3 resultswithin the time period is included. Total Bilirubin 0.2(L) 0.3 - 1.2 mg/dL [facility] 12/13/2024 3:00 AM EST 12/14/2024 12:58 PM EST us Brandon Gongora MD LAB BLOOD ORDERABLES Final Resul t Performing Organization Address [facility] Co de Phone Number [facility] [address] [place] [address] * Electrolyte panel (12/13/2024 3:00 AM EST) Only the most recent of3 resultswithin the time period is included. Pathologist [facility] Sodium 136 136 - 145 mEq/L [facility] Potassium 4.3 3.4 - 5.0 mEq/L [facility] Chloride 104 98 - 107 mEq/L [facility] Bicarbonate (CO2) 24 21 - 31 mEq/L [facility] Anion Gap 8 3 - 14 mEq/L [facility] 12/13/2024 3:00 AM EST 12/14/2024 12:58 PM EST us Brandon Gongora MD LAB BLOOD ORDERABLES Final Resul t Performing Organization Address [facility] Co de Phone Number [facility] [address] [place] [address] * Confirmation Test HCV (11/15/2024 3:00 AM EST) Pathologist [facility] Hep C Ab Confirmation Not needed [facility] 11/15/2024 3:00 AM EST 11/16/2024 4:24 PM EST us Brandon Gongora MD LAB BLOOD ORDERABLES Final Resul t Performing Organization Address [facility] Co de Phone Number [facility] [address] [place] [address] * HEPATITIS C ABS W/REFLEX RNA DETECTR (11/15/2024 3:00 AM EST) Pathologist [facility] Hep C Virus Ab Non-Reacti ve Non-Reacti ve [facility] 11/15/2024 3:00 AM EST 11/16/2024 4:43 PM EST us Brandon Gongora MD LAB [id number] ICITED RESULTS Final Result Performing Organization Address [facility] Co de Phone Number [facility] [address] [place] [address] * Aluminum level (11/15/2024 3:00 AM EST) Aluminum 8 1 - 20 ug/L [facility] 11/15/2024 3:00 AM EST 11/16/2024 3:52 PM EST us Brandon Gongora MD LAB BLOOD ORDERABLES Final Resul t Performing Organization Address [facility] de Phone Number [facility] [address] [place] [address] * (ABNORMAL) Hepatitis B Surface Antibody (11/15/2024 3:00 AM EST) Hep B Surface Antibody 7(A) mIU/mL [facility] Comment: Interpretation: <10: No Immunity >=10: Probable Immunity 11/15/2024 3:00 AM EST 11/16/2024 4:43 PM EST us Brandon Gongora MD LAB BLOOD ORDERABLES Final Resul t Performing Organization Address [facility] de Phone Number [facility] [address] [place] [address] * Uric Acid (11/15/2024 3:00 AM EST) Uric Acid 4.6 4.4 - 7.6 mg/dL [facility] 11/15/2024 3:00 AM EST 11/16/2024 4:43 PM EST us Brandon Gongora MD LAB BLOOD ORDERABLES Final Resul t Performing Organization Address [facility] de Phone Number [facility] [address] [place] [address] * PTH, Intact (11/15/2024 3:00 AM EST) PTH, Intact 468 160 - 721 pg/mL [facility] Comment: Suggested (KDIGO) ESRD maintenance range is two to nine times the upper normal limit (80.1 pg/mL) for the laboratory. 11/15/2024 3:00 AM EST 11/16/2024 4:43 PM EST us Brandon Gongora MD LAB BLOOD ORDERABLES Final Resul t [facility] [address] [place] [address] * (ABNORMAL) Lipid panel (11/15/2024 3:00 AM EST) Cholesterol 146 <200 mg/dL [facility] Comment: Optimal: ?<200 Borderline: ? 200-239 Higher Risk: ?>239 Triglycerides 102 <150 mg/dL [facility] Comment: Optimal: ?<150 Borderline High: ??150-199 High: ? 200-499 Very High: ?>499 HDL 49(A) >59 mg/dL [facility] Comment: Desirable: ?>59 Higher Risk: ?<40 LDL-Calc 77 <100 mg/dL [facility] Comment: Optimal: ?<100 Above Optimal: ?100-129 Borderline High: ??130-159 High: ? 160-189 Very High: ?>189 VLDL Cholesterol Chris 20 <30 mg/dL [facility] Comment: Optimal: ?<30 Borderline High: ??30-39 High: ? 40-99 Very High: ?>99 Chol/HDL Ratio 3.0 <3.3 [facility] Comment: Optimal: ?<3.3 Higher Risk: ?>6.2 11/15/2024 3:00 AM EST 11/16/2024 4:43 PM EST Brandon Gongora MD LAB BLOOD ORDERABLES Final Resul t Performing Organization Address [facility] Co de Phone Number [facility] [address] [place] [address] * Unspun Tube (10/11/2024 3:00 AM EST) Unspun Tube Post Gold/Whit e [facility] Comment:Received uncentrifug ed specimen. Unable to perform testing. 10/11/2024 3:00 AM EST Brandon Gongora MD LAB [id number] ICITED RESULTS Final Result Performing Organization Address [facility] de Phone Number [facility] [address] [place] [address] from Last 3 Months Insurance [facility]ICARE [facility] Care Teams Life Insurance Underwriter Relationship Specialty Start Date End Date Emanuel Black MD [address] [place], [place] PCP - General Internal Medicine 10/28/22
--- OUTSIDE RECORDS SUMMARY | 2024-12-28 12:20 | XMS_ITS | Encounter Summary ---
Author Organization [facility] Facility Address [address] [facility] [address] [place] [address] Care Team Providers Care Rn Trauma Name Role Phone Emanuel Black MD Primary Care Provider [phone] Encounter Details Date Type Department Care Team (Latest Contact Info) Description 07/12/2024 Treatment Richmond Cole MD [address] [facility] [address] [place] [id number] Social History Tobacco Use Types Packs/Day Years [...] Dialysis Note - Richmond Cole MD - 07/12/2024 12:00 AM EDT Patient: Andrea Orozco : 1945 Note Type: Dialysis Rounds-Comp Service Date: 07/12/2024 This patient was personally seen for a complete visit as part of routine monthly dialysis care for end stage renal disease. Attending Retail Special Event Associate: RICHMOND COLE MD Dialysis Location: [facility] Schedule: Shift: 1 OVERVIEW Patient is stable. HOME MEDICATIONS Medications reviewed. [facility] Outpatient Medications acetaminophen (TYLENOL) tablet Take 650 mg by mouth every 8 (eight) hours if needed for mild pain Start Date: alendronate (FOSAMAX) tablet Reported on 06/29/2023 Start Date: aspirin EC tablet Take 1 tablet by mouth 1 (one) time each day Start Date: calcium carbonate (Tums) 500 MG chewable tablet Chew 1 tablet (500 mg total) in the morning and 1 tablet (500 mg total) at noon and 1 tablet (500 mg total) in the evening. Chew with meals. Start Date: 07/26/2023 cholecalciferol (VITAMIN D-3) 50 MCG (2000 UT) capsule TAKE 1 CAPSULE BY MOUTH [...] (one) time each day Start Date: 06/04/2022 sevelamer carbonate (Renvela) 800 MG tablet Take 1 tablet (800 mg total) by mouth in the morning and 1 tablet (800 mg total) at noon and 1 tablet (800 mg total) in the evening. Take with meals. Swallow tablet whole; do not crush, break, or chew.. Start Date: 10/20/2023 traMADol (ULTRAM) 50 MG tablet Take 1 tablet (50 mg total) by mouth every 8 (eight) hours if needed for moderate pain Start Date: 05/17/2024 Current [facility] Allergies Allergen: No Known Allergies BP AND FLUID ASSESSMENT Acceptable blood pressure. Fluid status acceptable. ADEQUACY ASSESSMENT Target met. Prescription compliance acceptable. Continue with greater than 3x more frequent dialysis prescription. BUN 56 (07/23/23) Creatinine 4.3 (07/23/23) Sodium 141 (07/23/23) ACCESS ASSESSMENT Vascular access examined. ANEMIA ASSESSMENT MACARIO adjusted per protocol. Iron adjusted per protocol. Hgb 8.2 (07/23/23) MCV 101.8 (07/23/23) Platelets 117 (07/23/23) BMM ASSESSMENT Bone and mineral metabolism parameters reviewed. Calcium 8.0 07/23/23 Phosphorus, Serum 6.3 07/23/23 PTH, Intact 230 07/23/23 Vitamin D, 25-Hydroxy 30.5 07/23/23 Magnesium 1.8 07/23/23 Alkaline Phosphatase 90 07/23/23 NUTRITION ASSESSMENT Albumin at goal. Albumin 3.6 07/23/23 Potassium 5.1 07/23/23 PHYSICAL EXAM Exam performed. Vital Signs Reviewed. Lungs - Clear. CV - Blood pressure noted. CV - RRR. No edema. EXT - No ulcers. ADDITIONAL LABS White Blood Cells 6.0 (07/23/23) Uric Acid 5.3 (07/23/23) Signed by: Richmond Cole on 07/12/2024 at 12:38:06 PM Transcribed by: Richmond Cole on 07/12/2024 at 12:38:06 PM documented in this encounter Plan of Treatment Not on file documented as of this encounter Visit Diagnoses Not on filedocumented in this encounter Care Teams Rn Trauma Relationship Specialty Start Date End Date Emanuel Black MD [address] [place], [place] PCP - General Internal Medicine 10/28/22 documented as of this encounter
--- OUTSIDE RECORDS SUMMARY | 2024-12-28 12:20 | XMS_ITS | Encounter Summary ---
Author Organization [facility] Address [address] [address] Phone Care Team Providers Care Drywall Stripper Helper Name Role Phone Emanuel Black MD Primary Care Provider [phone] Encounter Details Date Type Department Care Team ([facility] st Contact Info) Description 12/13/2024 Orders Only [facility] [address] [address] Brandon Gongora MD [address] [address] Social History Tobacco Use Types [...] on file documented as of this encounter Procedures Procedure Name Priority Date/Time Associated Diagnosis Comments LIH () Routine 12/13/2024 3:00 AM EST KT/V NATURAL LOG, URR () Routine 12/13/2024 3:00 AM EST CALCIUM PHOSPHORUS PRODUCT, ADJUSTED () Routine 12/13/2024 3:00 AM EST HEPATITIS B SURFACE ANTIGEN W/REFL CONFIRM Routine 12/13/2024 3:00 AM EST TRANSFERRIN SATURATION Routine 3:00 AM EST CBC AND DIFFERENTIAL Routine 12/13/2024 3:00 AM EST ALT Routine 12/13/2024 3:00 AM EST AST Routine 12/13/2024 3:00 AM EST PROTEIN, TOTAL, SERUM Routine 12/13/2024 3:00 AM EST ALKALINE PHOSPHATASE Routine 12/13/2024 3:00 AM EST MAGNESIUM Routine 12/13/2024 3:00 AM EST LACTATE DEHYDROGENASE Routine 12/13/2024 3:00 AM EST GLUCOSE, RANDOM Routine 12/13/2024 3:00 AM EST FERRITIN Routine 12/13/2024 3:00 AM EST CREATININE, SERUM Routine 12/13/2024 3:0 0 AM EST BILIRUBIN, TOTAL Routine 12/13/2024 3:00 AM EST ELECTROLYTE PANEL Routine 12/13/2024 3:0 0 AM EST documented in this encounter Results * (ABNORMAL) Ferritin (12/13/2024 3:00 AM EST) Ferritin 1,868(H) 22 - 322 ng/mL [facility] 12/13/2024 3:00 AM EST 12/14/2024 12:58 PM EST us Brandon Gongora MD LAB BLOOD ORDERABLES Final Resul t [facility] [address] [place] [address] * Hepatitis B Surface Ag w/Reflex Confirmation (12/13/2024 3:00 AM EST) Hep B Surface Antigen Negative Negative [facility] 12/13/2024 3:00 AM EST 12/14/2024 12:58 PM EST us Brandon Gongora MD LAB BLOOD ORDERABLES Final Resul t Performing Organization Address [facility] de Phone Number [facility] [address] [place] [address] * Protein, total (12/13/2024 3:00 AM EST) Pathologist [facility] Total Protein 6.9 6.4 - 8.9 g/dL [facility] 12/13/2024 3:00 AM EST 12/14/2024 12:58 PM EST us Brandon Gongora MD LAB BLOOD ORDERABLES Final Resul t Performing Organization Address [facility] de Phone Number [facility] [address] [place] [address] * TSAT (12/13/2024 3:00 AM EST) Pathologist [facility] Iron 79 65 - 175 ug/dL [facility] Transferrin 230 215 - 365 mg/dL [facility] TIBC 322 211 - 406 ug/dL [facility] Iron Saturation (TSat) 25 22 - 52 % [facility] 12/13/2024 3:00 AM EST 12/14/2024 12:58 PM EST us Brandon Gongora MD LAB BLOOD ORDERABLES Final Resul t Performing Organization Address [facility] de Phone Number [facility] [address] [place] [address] * Electrolyte panel (12/13/2024 3:00 AM EST) Pathologist [facility] Sodium 136 136 - 145 mEq/L [facility] Potassium 4.3 3.4 - 5.0 mEq/L [facility] Chloride 104 98 - 107 mEq/L [facility] Bicarbonate (CO2) 24 21 - 31 mEq/L [facility] Anion Gap 8 3 - 14 mEq/L [facility] 12/13/2024 3:00 AM EST 12/14/2024 12:58 PM EST us Brandon Gongora MD LAB BLOOD ORDERABLES Final Resul t Performing Organization Address [facility] Co de Phone Number [facility] [address] [place] [address] * (ABNORMAL) Magnesium (12/13/2024 3:00 AM EST) Magnesium 1.7(L) 1.9 - 2.7 mg/dL [facility] 12/13/2024 3:00 AM EST 12/14/2024 12:58 PM EST us Brandon Gongora MD LAB BLOOD ORDERABLES Final Resul t Performing Organization Address [facility] Phone Number [facility] [address] [place] [address] * LIH (12/13/2024 3:00 AM EST) Lipemia Normal Normal [facility] Icterus Normal Normal [facility] Hemolysis Normal Normal [facility] 12/13/2024 3:00 AM EST 12/14/2024 12:58 PM EST us Brandon Gongora MD LAB [id number] ICITED RESULTS Final Result Performing Organization Address [facility] de Phone Number [facility] [address] [place] [address] * Glucose, random (12/13/2024 3:00 AM EST) Glucose 94 74 - 109 mg/dL [facility] 12/13/2024 3:00 AM EST 12/14/2024 12:58 PM EST us Brandon Gongora MD LAB BLOOD ORDERABLES Final Resul t Performing Organization Address [facility] Co de Phone Number [facility] [address] [place] [address] * Lactate dehydrogenase (12/13/2024 3:00 AM EST) LDH 213 120 - 246 U/L [facility] 12/13/2024 3:00 AM EST 12/14/2024 12:58 PM EST us Brandon Gongora MD LAB BLOOD ORDERABLES Final Resul t Performing Organization Address [facility] Phone Number [facility] [address] [place] [address] * (ABNORMAL) Creatinine, serum (12/13/2024 3:00 AM EST) Creatinine 5.95(H) 0.70 - 1.30 mg/dL [facility] 12/13/2024 3:00 AM EST 12/14/2024 12:58 PM EST us Brandon Gongora MD LAB BLOOD ORDERABLES Final Resul t Performing Organization Address [facility] Phone Number [facility] [address] [place] [address] * (ABNORMAL) Bilirubin, total (12/13/2024 3:00 AM EST) Total Bilirubin 0.2(L) 0.3 - 1.2 mg/dL [facility] 12/13/2024 3:00 AM EST 12/14/2024 12:58 PM EST us Brandon Gongora MD LAB BLOOD ORDERABLES Final Resul t Performing Organization Address [facility] de Phone Number [facility] [address] [place] [address] * AST (12/13/2024 3:00 AM EST) AST (SGOT) 17 <34 U/L [facility] 12/13/2024 3:00 AM EST 12/14/2024 12:58 PM EST us Brandon Gongora MD LAB BLOOD ORDERABLES Final Resul t Performing Organization Address [facility]/ZIP Co de Phone Number [facility] [address] [place] [address] * ALT (12/13/2024 3:00 AM EST) ALT (SGPT) 14 10 - 49 U/L [facility] 12/13/2024 3:00 AM EST 12/14/2024 12:58 PM EST us Brandon Gongora MD LAB BLOOD ORDERABLES Final Resul t Performing Organization Address [facility] de Phone Number [facility] [address] [place] [address] * Alkaline phosphatase (12/13/2024 3:00 AM EST) Pathologist [facility] Alkaline Phosphatase 105 46 - 116 U/L [facility] 12/13/2024 3:00 AM EST 12/14/2024 12:58 PM EST us Brandon Gongora MD LAB BLOOD ORDERABLES Final Resul t Performing Organization Address [facility] de Phone Number [facility] [address] [place] [address] * (ABNORMAL) Calcium Phosphorus Product, Adjusted (12/13/2024 3:00 AM EST) Pathologist [facility] Albumin 4.1 3.6 - 5.4 g/dL [facility] Calcium 8.4(L) 8.6 - 10.3 mg/dL [facility] Phosphorus, Serum 4.6 2.5 - 5.0 mg/dL [facility] Ca*PO4 38.6 <55.0 mg2/dL2 [facility] Calcium, Adjusted Total 8.4(L) 8.6 - 10.3 mg/dL [facility] CA*PO4 CORRCTD 38.6 <55.0 mg2/dL2 [facility] 12/13/2024 3:00 AM EST 12/14/2024 12:58 PM EST us Brandon Gongora MD LAB [id number] ICITED RESULTS Final Result Performing Organization Address [facility] Co de Phone Number [facility] [address] [place] [address] * (ABNORMAL) Kt/V Natural Log, URR (12/13/2024 3:00 AM EST) Treatment Time 233 min [facility] Pre-Weight, lb [...] 12:58 PM EST Brandon Gongora MD LAB [id number] ICITED RESULTS Final Result [facility] [address] [place] [address] * (ABNORMAL) CBC and Differential (12/13/2024 3:00 AM EST) Pathologist [facility] DIFFERENTIAL MANUAL, 2 Not Indicated [facility] White [...] Final Resul t [facility] [address] [place] [address] documented in this encounter Visit Diagnoses Not on filedocumented in this encounter Care Teams Drywall Stripper Helper Relationship Specialty Start Date End Date Emanuel Black MD [address] [place], [place] PCP - General Internal Medicine 10/28/22 documented as of this encounter
== END 2024-12-28 12:07 | disposition home or self-care (01) ==
PROVIDERS: PCP Internal Medicine; Visit Provider Internal Medicine
DX: N18.9 Chronic kidney disease, unspecified (principal)

== ENCOUNTER → 2024-12-28 11:01 | Outpatient (BNVA) | payer MEDICARE, SELFPAY | PROVIDERS: PCP Internal Medicine; Visit Provider Internal Medicine | DX: N18.9 Chronic kidney disease, unspecified (principal); F17.200 Nicotine dependence, unspecified, uncomplicated; Z71.6 Tobacco abuse counseling | CPT/HCPCS: 96127; 99212 ==

== ENCOUNTER → 2025-01-16 23:59 | Outpatient (BNV) | payer MEDICARE, SELFPAY ==
--- NOTE | 2025-01-17 15:03 | A.OFFVIS_ITS ---
Intake Visit Reasons: Remote ICD check - [employer] Allergies No Known Allergies Allergy (Mild, Verified 12/28/24 11:18) NONE PFSH Medical History Hyperlipidemia Hypertension CKD (chronic kidney disease) Chronic HFrEF (heart failure with reduced ejection fraction) ICD (implantable cardioverter-defibrillator) in place CAD (coronary artery disease) Ischemic cardiomyopathy Congestive heart failure Surgical History History of surgery S/P MVR (mitral valve replacement) S/P CABG x 3 Family History Father No problems noted. Mother No problems noted. Family/Other CVD (cardiovascular disease) Social History Housing: House Alcohol intake: current Alcohol intake frequency: a few times a week Patient Tobacco Use Status: Current everyday Tobacco user Tobacco use type: Cigarette Cigarettes Per Day: 2 e-Cigarette/Vaping Use: Never Used Second Hand Smoke Exposure: Yes service: No Current occupational status: retired Current occupational exposures/hazards: No Cognitive needs: No Hearing needs: No Vision needs: Yes Office Procedures Cardiac Device Check Cardiac Device Check Details: Remote ICD report generated 01/15/2025. ICD function is adequate [id number] Cardiac Interrogation, implant defibrillator w/interim Procedure code (CPT) selection complete Assessment & Plan Assessment & Plan (1) ICD (implantable cardioverter-defibrillator) in place: Comment: Single-chamber [place] [employer] ICD for primary prevention Code(s): Z95.810 - Presence of automatic (implantable) cardiac defibrillator Category: Medical Plan: See above Coding Level of Care Code Procedure Only Diagnoses ICD (implantable cardioverter-defibrillator) in place Z95.810 CPT Codes Cardiac Device Check - Cardiac Device 13: [id number] Cardiac Interrogation, implant defibrillator w/interim ([id number])
== END ==
PROVIDERS: PCP Internal Medicine; Visit Provider Internal Medicine Cardiovascular Disease
DX: Z45.02 Encounter for adjustment and management of automatic implantable cardiac defibrillator (principal)
CPT/HCPCS: 93295

== ENCOUNTER → 2025-02-20 23:59 | Outpatient (BNV) | payer MEDICARE, SELFPAY ==
--- NOTE | 2025-02-23 11:40 | A.OFFVIS_ITS ---
Intake Visit Reasons: REmote ICD check- [employer] Allergies No Known Allergies Allergy (Mild, Verified 12/28/24 11:18) NONE PFSH Medical History Hyperlipidemia Hypertension CKD (chronic kidney disease) Chronic HFrEF (heart failure with reduced ejection fraction) ICD (implantable cardioverter-defibrillator) in place CAD (coronary artery disease) Ischemic cardiomyopathy Congestive heart failure Surgical History History of surgery S/P MVR (mitral valve replacement) S/P CABG x 3 Family History Father No problems noted. Mother No problems noted. Family/Other CVD (cardiovascular disease) Social History Housing: House Alcohol intake: current Alcohol intake frequency: a few times a week Patient Tobacco Use Status: Current everyday Tobacco user Tobacco use type: Cigarette Cigarettes Per Day: 2 e-Cigarette/Vaping Use: Never Used Second Hand Smoke Exposure: Yes service: No Current occupational status: retired Current occupational exposures/hazards: No Cognitive needs: No Hearing needs: No Vision needs: Yes Office Procedures Cardiac Device Check Cardiac Device Check Details: Remote ICD report generated 02/20/2025. Multiple episodes of arrhythmias reported as VF without therapy noted although EEG and was not present on this document. ICD function otherwise is normal. Will review it in office [id number] Cardiac Interrogation, implant defibrillator w/interim Procedure code (CPT) selection complete Assessment & Plan Assessment & Plan (1) ICD (implantable cardioverter-defibrillator) in place: Comment: Single-chamber [place] [employer] ICD for primary prevention Code(s): Z95.810 - Presence of automatic (implantable) cardiac defibrillator Category: Medical Plan: See above Coding Level of Care Code Procedure Only Diagnoses ICD (implantable cardioverter-defibrillator) in place Z95.810 CPT Codes Cardiac Device Check - Cardiac Device 13: [id number] Cardiac Interrogation, implant defibrillator w/interim ([id number])
== END ==
PROVIDERS: PCP Internal Medicine; Visit Provider Internal Medicine Cardiovascular Disease
DX: I49.9 Cardiac arrhythmia, unspecified (principal); Z95.810 Presence of automatic (implantable) cardiac defibrillator
CPT/HCPCS: 93295

== ENCOUNTER → 2025-02-20 23:59 | Outpatient (BNV) | payer MEDICARE, SELFPAY ==
--- NOTE | 2025-02-23 11:39 | A.OFFVIS_ITS ---
Intake Visit Reasons: Remote HF monitoring- [employer] Allergies No Known Allergies Allergy (Mild, Verified 12/28/24 11:18) NONE PFSH Medical History Hyperlipidemia Hypertension CKD (chronic kidney disease) Chronic HFrEF (heart failure with reduced ejection fraction) ICD (implantable cardioverter-defibrillator) in place CAD (coronary artery disease) Ischemic cardiomyopathy Congestive heart failure Surgical History History of surgery S/P MVR (mitral valve replacement) S/P CABG x 3 Family History Father No problems noted. Mother No problems noted. Family/Other CVD (cardiovascular disease) Social History Housing: House Alcohol intake: current Alcohol intake frequency: a few times a week Patient Tobacco Use Status: Current everyday Tobacco user Tobacco use type: Cigarette Cigarettes Per Day: 2 e-Cigarette/Vaping Use: Never Used Second Hand Smoke Exposure: Yes service: No Current occupational status: retired Current occupational exposures/hazards: No Cognitive needs: No Hearing needs: No Vision needs: Yes Office Procedures Cardiac Device Check Cardiac Device Check Details: Remote heart failure report generated 02/20/2025. Heart failure parameters are stable [id number] Cardiac Device Interrogation, cardio physiologic monitor Procedure code (CPT) selection complete Assessment & Plan Assessment & Plan (1) ICD (implantable cardioverter-defibrillator) in place: Comment: Single-chamber [place] [employer] ICD for primary prevention Code(s): Z95.810 - Presence of automatic (implantable) cardiac defibrillator Category: Medical Plan: See above Coding Level of Care Code Procedure Only Diagnoses ICD (implantable cardioverter-defibrillator) in place Z95.810 CPT Codes Cardiac Device Check - Cardiac Device 15: [id number] Cardiac Device Interrogation, cardio physiologic monitor ([id number])
== END ==
PROVIDERS: PCP Internal Medicine; Visit Provider Internal Medicine Cardiovascular Disease
DX: Z45.02 Encounter for adjustment and management of automatic implantable cardiac defibrillator (principal)
CPT/HCPCS: 93297

== ENCOUNTER → 2025-03-27 23:59 | Outpatient (BNV) | payer MEDICARE, SELFPAY ==
--- NOTE | 2025-04-03 14:28 | MHC.OFFVIS ---
Intake Visit Reasons: Remote ICD check - [employer] Allergies No Known Allergies Allergy (Mild, Verified 12/28/24 11:18) NONE PFSH Medical History Hyperlipidemia Hypertension CKD (chronic kidney disease) Chronic HFrEF (heart failure with reduced ejection fraction) ICD (implantable cardioverter-defibrillator) in place CAD (coronary artery disease) Ischemic cardiomyopathy Congestive heart failure Surgical History History of surgery S/P MVR (mitral valve replacement) S/P CABG x 3 Family History Father No problems noted. Mother No problems noted. Family/Other CVD (cardiovascular disease) Social History Housing: House Alcohol intake: current Alcohol intake frequency: a few times a week Patient Tobacco Use Status: Current everyday Tobacco user Tobacco use type: Cigarette Cigarettes Per Day: 2 e-Cigarette/Vaping Use: Never Used Second Hand Smoke Exposure: Yes service: No Current occupational status: retired Current occupational exposures/hazards: No Cognitive needs: No Hearing needs: No Vision needs: Yes Office Procedures Cardiac Device Check Cardiac Device Check Details: Remote ICD report generated 03/27/2025. ICD function is adequate [id number] Cardiac Interrogation, implant defibrillator w/interim Procedure code (CPT) selection complete Assessment & Plan Assessment & Plan (1) ICD (implantable cardioverter-defibrillator) in place: Comment: Single-chamber [place] [employer] ICD for primary prevention Code(s): Z95.810 - Presence of automatic (implantable) cardiac defibrillator Category: Medical Plan: See above Coding Level of Care Code Procedure Only Diagnoses ICD (implantable cardioverter-defibrillator) in place Z95.810 CPT Codes Cardiac Device Check - Cardiac Device 13: [id number] Cardiac Interrogation, implant defibrillator w/interim ([id number])
== END ==
PROVIDERS: PCP Internal Medicine; Visit Provider Internal Medicine Cardiovascular Disease
DX: Z45.02 Encounter for adjustment and management of automatic implantable cardiac defibrillator (principal)
CPT/HCPCS: 93295

== ENCOUNTER → 2025-05-01 23:59 | Outpatient (BNV) | payer MEDICARE, SELFPAY ==
--- NOTE | 2025-05-07 12:03 | MHC.OFFVIS ---
Intake Visit Reasons: Remote ICD check- [employer] Allergies No Known Allergies Allergy (Mild, Verified 12/28/24 11:18) NONE PFSH Medical History Hyperlipidemia Hypertension CKD (chronic kidney disease) Chronic HFrEF (heart failure with reduced ejection fraction) ICD (implantable cardioverter-defibrillator) in place CAD (coronary artery disease) Ischemic cardiomyopathy Congestive heart failure Surgical History History of surgery S/P MVR (mitral valve replacement) S/P CABG x 3 Family History Father No problems noted. Mother No problems noted. Family/Other CVD (cardiovascular disease) Social History Housing: House Alcohol intake: current Alcohol intake frequency: a few times a week Patient Tobacco Use Status: Current everyday Tobacco user Tobacco use type: Cigarette Cigarettes Per Day: 2 e-Cigarette/Vaping Use: Never Used Second Hand Smoke Exposure: Yes service: No Current occupational status: retired Current occupational exposures/hazards: No Cognitive needs: No Hearing needs: No Vision needs: Yes Office Procedures Cardiac Device Check Cardiac Device Check Details: Remote ICD report generated 05/01/2025. ICD function is adequate. Multiple high ventricular rate episode in the VF zone noted without any therapies. No electrograms were recorded [id number] Cardiac Interrogation, implant defibrillator w/interim Procedure code (CPT) selection complete Assessment & Plan Assessment & Plan (1) ICD (implantable cardioverter-defibrillator) in place: Comment: Single-chamber [place] [employer] ICD for primary prevention Code(s): Z95.810 - Presence of automatic (implantable) cardiac defibrillator Category: Medical Plan: See above Coding Level of Care Code Procedure Only Diagnoses ICD (implantable cardioverter-defibrillator) in place Z95.810 CPT Codes Cardiac Device Check - Cardiac Device 13: [id number] Cardiac Interrogation, implant defibrillator w/interim ([id number])
== END ==
PROVIDERS: PCP Internal Medicine; Visit Provider Internal Medicine Cardiovascular Disease
DX: Z45.02 Encounter for adjustment and management of automatic implantable cardiac defibrillator (principal)
CPT/HCPCS: 93295

== ENCOUNTER 2025-05-08 14:43 | Outpatient (AMB) | payer MEDICARE, SELFPAY ==
[2025-05-08 15:22] VITALS: BP 126/80; PULSE 58; BMI 21.1
--- NOTE | 2025-05-08 15:22 | MHC.OFFVIS ---
Vital Signs 05/08/25 15:22 Height 5 ft 8 in Weight 139 lb BMI 21.1 BP 126/80 Blood Pressure Location Lt brachial Position Sitting Pulse 58 Pulse Source Monitor Intake Visit Reasons: 6 month with [employer] Allergies No Known Allergies Allergy (Mild, Verified 12/28/24 11:18) NONE Medication List - Last Reconciled 05/08/25 by Judd Rojas MD amiodarone 200 mg PO DAILY 90 days aspirin (Adult Low Dose Aspirin) 81 mg PO DAILY calcium carbonate (Calcium Antacid) mg PO TID PRN cholestyramine (with sugar) 4 gram 1 scoop orally 2 times a day; furosemide 80 mg (4 x 20 mg) PO DIRECTED PRN metoprolol tartrate 25 mg PO BID rosuvastatin 20 mg PO DAILY sevelamer carbonate 1,600 mg PO BID tramadol 50 mg PO TID PRN HPI Comments Details: Andrea comes for follow-up, accompanied by his . From cardiac perspective he has been doing well. He has not had any worsening heart failure symptoms. He said his dry weight has been adjusted at hemodialysis and since then he has been feeling a lot better and feels lot more energetic. He has not had any heart failure admissions. In February she had undergone fistula revision surgery in the right arm and apparently on the same day he had a lot of alerts suggesting VF. Reviewing the alert and intracardiac electrogram suggest noise most likely related to use of cautery. However this was not apparent before and he was started on amiodarone therapy. He has not had any ICD discharge. Has had no syncopal episodes. Denies any anginal symptoms. Denies any significant worsening leg edema. No claudications. No lightheadedness, syncope. Blood pressures remained stable. [facility] Medical History Ventricular tachycardia Hyperlipidemia Hypertension CKD (chronic kidney disease) Chronic HFrEF (heart failure with reduced ejection fraction) ICD (implantable cardioverter-defibrillator) in place CAD (coronary artery disease) Ischemic cardiomyopathy Congestive heart failure Surgical History History of surgery S/P MVR (mitral valve replacement) S/P CABG x 3 Family History Father No problems noted. Mother No problems noted. Family/Other CVD (cardiovascular disease) Social History Housing: House Alcohol intake: current Alcohol intake frequency: a few times a week Patient Tobacco Use Status: Current everyday Tobacco user Tobacco use type: Cigarette Cigarettes Per Day: 2 e-Cigarette/Vaping Use: Never Used Second Hand Smoke Exposure: Yes service: No Current occupational status: retired Current occupational exposures/hazards: No Cognitive needs: No Hearing needs: No Vision needs: Yes Review of Systems Const Denies weakness Eyes Reports no additional complaints ENT Reports no additional complaints and Denies dizziness Card Reports no additional complaints, Denies chest pain, Denies chest pain with activity, Denies syncope, Denies rapid heart rate, Denies pedal edema, Denies edema, Denies leg edema, Denies lightheadedness, Denies palpitations, Denies dyspnea, Denies dyspnea on exertion and Denies orthopnea Resp Denies cough, Denies dyspnea and Denies dyspnea on exertion GI Denies hematochezia and Denies change in stool character Musc Denies abnormal gait, Denies muscle cramps, Denies muscle weakness, Denies numbness, Denies radiating pain into limb and Denies tingling Neuro Denies abnormal gait, Denies dizziness, Denies syncope, Denies numbness, Denies tingling and Denies weakness Endo Denies palpitations Physical Exam Vital Signs: Last Vital Signs Pulse 58 05/08/25 15:22 BP 126/80 05/08/25 15:22 BMI result Body Mass Index 21.1 Const General: cooperative, no acute distress, alert and awake Nutritional Appearance: thin and other (Frail appearing elderly man) Orientation/consciousness: patient oriented x3 Neck Neck: Yes normal visual inspection and Yes JVD Resp Effort & Inspection: normal respiratory effort, able to speak in complete sentences and not labored Auscultation: clear to auscultation bilaterally, no crackles, no rales and bronchovesicular breath sounds on the left (Posterior long) Cardio Jugular venous distension: JVD Rate: regular rate Rhythm: regular rhythm Heart sounds: S1 normal heart sound present and S2 normal heart sound present Peripheral pulses: Peripheral pulses 2+ throughout GI Inspection: Yes normal to inspection Neuro General: patient oriented x3 Extrem General: Yes normal to inspection and No edema Office Procedures Cardiac Device Check Cardiac Device Check Details: Single-chamber [employer] ICD noted. Multiple high ventricular rate episode, consistent with noise. Heart failure markers are within normal limits. Ventricular pacing thresholds adequate. Ventricular sensing is adequate. Pacing and shock lead impedance is stable. Battery life is excellent. [id number] Cardiac Device Check, single lead implantable defibrillator Procedure code (CPT) selection complete Assessment & Plan Assessment & Plan (1) Chronic HFrEF (heart failure with reduced ejection fraction): Code(s): I50.22 - Chronic systolic (congestive) heart failure Category: Medical Plan: Chronic heart failure with reduced ejection fraction with clinically euvolemic and well compensated on hemodialysis. Currently dry weight of 144 lb which is tolerating well without any evidence of fluid overload. He is not having any limiting symptoms. His blood pressures improved as well on this dry weight. Continue current dry weight and fluid management through dialysis. He has significant access issues which has been worked by Nephrology. (2) S/P MVR (mitral valve replacement): Comment: 29 mm [place] bioprosthetic valve, December 2018 Code(s): Z95.2 - Presence of prosthetic heart valve Category: Surgical Plan: Status post mitral valve replacement for severe mitral regurgitation. Clinically working well. Follow-up echocardiogram 6 months time. Currently on aspirin therapy. Continue the same. Advise SBE prophylaxis as per ACC/[place] guidelines. (3) S/P CABG x 3: Comment: BARROS to LAD and SVG to OM and distal RCA, December 2018 Code(s): Z95.1 - Presence of aortocoronary bypass graft Category: Surgical Plan: CAD status post three-vessel coronary artery bypass grafting in 2019. Currently not having any symptoms of angina. Continue current high-intensity statin therapy with target goal LDL less than 70 mg/dL. Continue aspirin therapy. Encouraged to maintain activity level as tolerated. Blood pressure is currently well optimized. (4) ICD (implantable cardioverter-defibrillator) in place: Comment: Single-chamber [employer] ICD for primary prevention Code(s): Z95.810 - Presence of automatic (implantable) cardiac defibrillator Category: Medical Plan: ICD in place with noted ventricular arrhythmias in February and most likely due to spurious events related to noise created by cautery use. There was no clear ventricular arrhythmias event. Therefore will discontinue amiodarone therapy. Advised to monitor heart rate at home. Will continue monitor remote telemetry. Follow up in the clinic in 6 months time after echo with device check in the office. Thank you for allowing me to partake in his care Orders: Orders CA echo transthoracic complete 6 Months I25.5 - Ischemic cardiomyopathy Medications: Discontinued amiodarone 1 tab daily Discontinued Reason: Doctor's Order 200 mg PO DAILY 90 days 90 tabs 3RF Coding Level of Care Code Est Pt Level 4 (46942) Complex EM visit Add On G2211 Diagnoses Chronic HFrEF (heart failure with reduced ejection fraction) I50.22 S/P MVR (mitral valve replacement) Z95.2 S/P CABG x 3 Z95.1 ICD (implantable cardioverter-defibrillator) in place Z95.810 CPT Codes Cardiac Device Check - Cardiac Device 4: 89171-PR Cardiac Device Check, single lead implantable defibrillator ([id number])
--- OUTSIDE RECORDS SUMMARY | 2025-05-08 15:45 | XMS_ITS | Patient Health Record ---
Author Organization [facility] Address [address] [place] [address] Care Team Providers Care Heater Room Helper Name Role Phone Emanuel Black MD Primary Care Provider Celeste Carl Unavailable [phone] Reason For Referral No Information Medications Medication SIG (Take, Route, Frequency, Duration) Notes Start Date End Date Status Metoprolol Tartrate 50 MG 1 tablet with food Orally Twice a day; Duration: 30 day(s) Active Furosemide 40 MG 1 tablet Orally Once a day; Duration: 30 day(s) Active Sevelamer HCl 800 MG 1 tablet with meals Orally Three times a day; Duration: 30 day(s) Active Calcium Carbonate 260 MG as directed Orally Active Rosuvastatin Calcium 20 MG 1 tablet Oral ly Once a day; Duration: 30 day(s) Active Social History Tobacco Use: Social History Observation Description Date Details (start date - stop date) Current Smoker NA - NA Tobacco Use/Smoking Question Answer Notes Are you a: current smoker Alcohol Screen Question Answer Notes Did you have a drink containing alcohol in the p ast year? Yes Points 0 Interpretation Negative Plan Of Treatment No Information Insurance Providers Payer Name Payer Address Payer Phone Subscriber Number Group Number Insured Name Patient Relationship to Insured Coverage Start Date Coverage End Date Medicare National Govt [facility] [address] [place] [address] [id number] Andrea Orozco Self - patient is the insured AARP Secondary to Medicare [address] [place] [address] [id number] Andrea Orozco Self - patient is the insured Medical (General) History Medical History History ICD Code Arthritis Heart disease High blood pressure Kidney disease Numbness Poor circulation Vascular grafts Heart valve conditions/replacement Transfusions Surgical History Surgery Date(Month/Year) 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
--- OUTSIDE RECORDS SUMMARY | 2025-05-08 15:45 | XMS_ITS | Patient Health Record ---
Author Organization [facility] Address [address] [place] [address] Care Team Providers Care Security Sales Manager Name Role Phone Cathleen Shoaib Unavailable [phone] Reason For Referral No Information Plan Of Treatment No Information
--- OUTSIDE RECORDS SUMMARY | 2025-05-08 15:45 | XMS_ITS | Encounter Summary ---
Author Organization [facility] Address [address] [facility] [address] [place] [address] Phone Care Team Providers Care Quality Compliance Consultant Name Role Phone Emanuel Black MD Primary Care Provider [phone] Reason for Visit * Reason Onset Date Comments Med Refill 03/09/2022 Encounter Details Date Type Department Care Team ([facility] st Contact Info) Description 03/09/2022 Telephone [facility] [address] [facility] [address] [place] [address] Carl Kyle MD Social History Tobacco Use [...] pils at once. Please send to the [facility] [place] Thank you documented in this encounter Plan of Treatment Not on file documented as of this encounter Visit Diagnoses Not on filedocumented in this encounter Care Teams Quality Compliance Consultant Relationship Specialty Start Date End Date Emanuel Black MD [address] [place], [place] PCP - General Internal Medicine 10/28/22 documented as of this encounter
== END 2025-05-08 15:50 | disposition home or self-care (01) ==
LOC: HO.HCS 14:44
PROVIDERS: PCP Internal Medicine; Visit Provider Internal Medicine Cardiovascular Disease
DX: I50.22 Chronic systolic (congestive) heart failure (principal); Z95.2 Presence of prosthetic heart valve; Z95.1 Presence of aortocoronary bypass graft; Z95.810 Presence of automatic (implantable) cardiac defibrillator
CPT/HCPCS: 93282; 99214; G2211

== ENCOUNTER → 2025-05-08 14:43 | Outpatient (BNVA) | payer MEDICARE, SELFPAY | PROVIDERS: PCP Internal Medicine; Visit Provider Internal Medicine Cardiovascular Disease | DX: Z45.018 Encounter for adjustment and management of other part of cardiac pacemaker (principal); I50.22 Chronic systolic (congestive) heart failure; Z95.2 Presence of prosthetic heart valve; Z95.1 Presence of aortocoronary bypass graft | CPT/HCPCS: 99212 ==

== ENCOUNTER → 2025-06-05 23:59 | Outpatient (BNV) | payer MEDICARE, SELFPAY ==
--- NOTE | 2025-06-05 15:25 | A.OFFVIS_ITS ---
Intake Visit Reasons: Remote ICD check- [employer] Allergies No Known Allergies Allergy (Mild, Verified 12/28/24 11:18) NONE PFSH Medical History Ventricular tachycardia Hyperlipidemia Hypertension CKD (chronic kidney disease) Chronic HFrEF (heart failure with reduced ejection fraction) ICD (implantable cardioverter-defibrillator) in place CAD (coronary artery disease) Ischemic cardiomyopathy Congestive heart failure Surgical History History of surgery S/P MVR (mitral valve replacement) S/P CABG x 3 Family History Father No problems noted. Mother No problems noted. Family/Other CVD (cardiovascular disease) Social History Housing: House Alcohol intake: current Alcohol intake frequency: a few times a week Patient Tobacco Use Status: Current everyday Tobacco user Tobacco use type: Cigarette Cigarettes Per Day: 2 e-Cigarette/Vaping Use: Never Used Second Hand Smoke Exposure: Yes service: No Current occupational status: retired Current occupational exposures/hazards: No Cognitive needs: No Hearing needs: No Vision needs: Yes Office Procedures Cardiac Device Check Cardiac Device Check Details: Remote ICD report generated 06/05/2025. ICD function is adequate [id number] Cardiac Interrogation, implant defibrillator w/interim Procedure code (CPT) selection complete Assessment & Plan Assessment & Plan (1) ICD (implantable cardioverter-defibrillator) in place: Comment: Single-chamber [employer] [place] [employer] ICD for primary prevention Code(s): Z95.810 - Presence of automatic (implantable) cardiac defibrillator Category: Medical Plan: See above Coding Level of Care Code Procedure Only Diagnoses ICD (implantable cardioverter-defibrillator) in place Z95.810 CPT Codes Cardiac Device Check - Cardiac Device 13: [id number] Cardiac Interrogation, implant defibrillator w/interim ([id number])
== END ==
PROVIDERS: PCP Internal Medicine; Visit Provider Internal Medicine Cardiovascular Disease
DX: Z45.02 Encounter for adjustment and management of automatic implantable cardiac defibrillator (principal)
CPT/HCPCS: 93295

== ENCOUNTER 2025-06-28 09:36 | Outpatient (AMB) | payer MEDICARE, SELFPAY ==
--- NOTE | 2025-06-28 09:49 | MHC.PC.OV ---
Vital Signs 06/28/25 09:51 Height 5 ft 8 in Weight 143 lb 6 oz BMI 21.8 BP 138/74 Blood Pressure Location Lt brachial Position Sitting Pulse 66 Pulse Source Pulse Oximeter Pulse Oximetry (%) 100 Oxygen Delivery Method Room Air Intake Visit Reasons: 6 Month F/U/LISA [facility] [employer] Coordinator Required: No Accompanied by: Self / Same As Patient Allergies No Known Allergies Allergy (Mild, Verified 06/28/25 10:13) NONE Medication List - Last Reconciled 06/28/25 by Slade Tolbert MD aspirin (Adult Low Dose Aspirin) 81 mg PO DAILY calcium carbonate (Calcium Antacid) mg PO TID PRN cholestyramine (with sugar) 4 gram 1 scoop orally 2 times a day; furosemide 80 mg (4 x 20 mg) PO DIRECTED PRN metoprolol tartrate 25 mg PO BID rosuvastatin 20 mg PO DAILY sevelamer carbonate 1,600 mg PO BID tramadol 50 mg PO TID PRN Tobacco use date assessed: 06/28/25 Fall risk assessment: No Falls in past year Last assessed Fall Risk: 06/28/25 Dental Screening Dental Screen Date: 06/28/25 Did you have a dental visit in the last 12 months?: Yes Did you have a dental problem in the last 6 months where you did not have access to dental care?: No Was dental information given to patient?: Patient has dentist HPI 6 Month F/U/LISA Wayne HPI Details Patient comes in today for his follow up visit - is transferring over from Dr. Black, who retired from the practice a few months ago Patient states that he is currently on hemodialysis 3 times a week and has been on dialysis for a couple of years now States that his doctors (vascular surgeons) have had problems creating a suitable access/AV graft on both of his arms over the past couple of years (multiple failed AV fistula attempts) and he is currently just getting his dialysis through a Perma-cath on his right upper chest wall States that he is getting another CTA of his aorta done next Wednesday (07/03/2025) at [facility] for follow up of some abnormality of his aorta, which has reportedly been previously repaired - based on his records, this is likely to follow up on his AAA, S/P EVAR, now with endoleak He continues to follow up with vascular surgery for the above issues and states that vascular surgery is still working him up for another potential AV fistula placement He denies any headaches or dizziness Denies any chest pains, no increased SOB No nausea/vomiting, no abdominal pain No change in bowel habits noted We have not received any lab results on patient over the past couple of years - his labs here were last done in June 2023 [facility] Medical History (Updated 06/28/25 @ 11:39 by Slade Tolbert MD) Failure of surgically constructed arteriovenous fistula End stage renal failure on dialysis Essential hypertension Mixed hyperlipidemia Ventricular tachycardia Chronic HFrEF (heart failure with reduced ejection fraction) ICD (implantable cardioverter-defibrillator) in place CAD (coronary artery disease) Ischemic cardiomyopathy Congestive heart failure Surgical History History of surgery S/P MVR (mitral valve replacement) S/P CABG x 3 Family History Father No problems noted. Mother No problems noted. Family/Other CVD (cardiovascular disease) Social History Housing: House Alcohol intake: current Alcohol intake frequency: a few times a week Patient Tobacco Use Status: Current everyday Tobacco user Tobacco use type: Cigarette Cigarettes Per Day: 2 e-Cigarette/Vaping Use: Never Used Second Hand Smoke Exposure: Yes service: No Current occupational status: retired Current occupational exposures/hazards: No Cognitive needs: No Hearing needs: No Vision needs: Yes Questionnaire PHQ-9 Over the last 2 weeks, how often have you been bothered by any of the following problems? 1. Little interest or pleasure in doing things: not at all 2. Feeling down, depressed, or hopeless: not at all 3. Trouble falling or staying asleep, or sleeping too much: not at all 4. Feeling tired or having little energy: several days 5. Poor appetite or overeating: not at all 6. Feeling bad about yourself - or that you are a failure or have let yourself or your family down: not at all 7. Trouble concentrating on things, such as reading the newspaper or watching television: not at all 8. Moving or speaking so slowly that other people could have noticed. Or the opposite - being so fidgety or restless that you have been moving around a lot more than usual: not at all 9. Thoughts that you would be better off or of hurting yourself in some way: not at all Total score: 1 Depression Screening Interpretation: Negative Depression Screening Done: Yes 72683 - PHQ-9 Billing: Yes Source: Developed by Drs. Shoaib Martell, Li Ness, Yoan Mccartney and colleagues, with an educational emelia from [employer]. Thrive Questionnaire Date Thrive assessed: 06/28/25 I am a: Patient What is your living situation today?: I have a steady place to live Within the past 12 months, did the food you bought not last and you didn't have the money to get more?: Never true Within the past 12 months, did you worry whether your food would run out before you got money to buy more?: Never true Do you have trouble paying for medicines?: No Do you have trouble getting transportation to medical appointments?: No Do you have trouble paying your heating and electricity bill?: No Do you have trouble taking care of your child, family member or friend?: No Do you have trouble with day-to-day activities such as bathing, preparing meals, shopping, managing finances, etc.?: No Are you currently unemployed and looking for a job?: No Are you interested in more education?: No Please select the resources that you would like help with: None Currently or been in a relationship where the following occur: I choose not to answer THRIVE Score: 0 AUDIT C Alcohol Use Questionnaire (AUDIT-C) 1. How often do you have a drink containing alcohol?: 2-4 times a month 2. How many drinks containing alcohol do you have on a typical day when you are drinking?: 1 or 2 3. How often do you have six or more drinks on one occasion?: Never Total Score: 2 Score Reviewed/Action Taken: Yes LOULOU-7 AMB Questionnaire LOULOU-7 Date LOULOU - 7 assessed: 06/28/25 Feeling nervous, anxious, or on edge: 0 = Not at all Not being able to stop or control worryin = Not at all Worrying too much about different things: 0 = Not at all Trouble relaxin = Not at all Being so restless that it is hard to sit still: 0 = Not at all Becoming easily annoyed or irritable: 0 = Not at all Feeling afraid as if something awful might happen: 0 = Not at all Total LOULOU-7 score (0-4 normal; 5-9 mild; 10-14 moderate; 15-21 severe): 0 Source: Developed by Drs. Shoaib Martell, Li Ness, Yoan Mccartney and colleagues, with an educational emelia from [employer]. LOULOU-7 Assessment Billing LOULOU-7 Assessment Tool: LOULOU-7 Assessment 73671 Review of Systems Const Denies chills, Reports fatigue, Denies fever(s) and Denies headache(s) ENT Denies dysphagia, Denies dizziness, Denies otalgia, Denies headache(s), Denies neck pain, Denies odynophagia and Denies sore throat Card Denies chest pain, Denies palpitations and Reports dyspnea on exertion (mild) Resp Denies chest congestion, Denies cough and Reports dyspnea on exertion (mild) GI Denies abdominal pain, Denies constipation, Denies dysphagia, Denies heartburn, Denies diarrhea, Denies nausea, Denies odynophagia and Denies vomiting Denies difficulty urinating, Denies dysuria, Denies nocturia and Denies urinary frequency Musc Denies back pain and Denies neck pain Skin/Breast Denies rash Neuro Denies dizziness and Denies headache(s) Endo Reports fatigue and Denies palpitations Physical exam (Primary Care) Vital Signs: Last Vital Signs Pulse 66 06/28/25 09:51 BP 138/74 06/28/25 09:51 Pulse Ox 100 06/28/25 09:51 Oxygen Delivery Method Room Air 06/28/25 09:51 BMI result Body Mass Index 21.8 Tobacco/Smoking Status: Tobacco use Status Tobacco use date assessed 06/28/25 06/28/25 09:53 Patient Tobacco Use Status Current everyday Tobacco 06/28/25 09:49 Tobacco use type Cigarette 06/28/25 09:49 e-Cigarette/Vaping Use Never Used 06/28/25 09:49 PHQ-9: PHQ-9 Score PHQ-9: Total score 1 06/28/25 10:29 Depression Screening Interpretation: Negative Thrive Assessment: Date of Thrive Assessment Date Thrive assessed 06/28/25 06/28/25 09:53 Currently or been in a relationship where the following occur: I choose not to answer Const General: no acute distress and alert HENMT Ears: TM's normal bilaterally and EAC's normal Throat: Yes posterior oropharynx normal and Yes tonsils normal (no TP congestion) Neck Neck: Yes supple and No lymphadenopathy Thyroid: Thyroid normal Resp Auscultation: clear to auscultation bilaterally, no rales and no wheezes Cardio Rate: regular rate Rhythm: regular rhythm Heart sounds: no murmurs GI Palpation (GI): Soft to palpation and nontender Auscultation: normal bowel sounds General: Yes no CVA tenderness Back/Spine/Pelvis Back: no CVA tenderness Thoracic/Lumbar Spine: No lumbar spinal tenderness Skin Rashes: no rashes Extrem General: Yes no clubbing, cyanosis or edema Coding Level of Care Code Est Pt Level 4 (77120) Diagnoses End stage renal failure on dialysis N18.6; Z99.2 Chronic HFrEF (heart failure with reduced ejection fraction) I50.22 Ischemic cardiomyopathy I25.5 S/P MVR (mitral valve replacement) Z95.2 ICD (implantable cardioverter-defibrillator) in place Z95.810 Mixed hyperlipidemia E78.2 Additional Codes LOULOU-7 Assessment Billing - LOULOU-7 Assessment Tool: LOULOU-7 Assessment 84569 ([id number]) PHQ-9 - 92295 - PHQ-9 Billing: Yes ([id number]) Assessment & Plan Assessment & Plan (1) End stage renal failure on dialysis: Code(s): N18.6 - End stage renal disease; Z99.2 - Dependence on renal dialysis Category: Medical Plan: Patient is currently on hemodialysis 3 times a week Follow up with nephrology as scheduled Patient continues to have problems with vascular access for his dialysis - to follow-up with vascular surgery as scheduled (2) Chronic HFrEF (heart failure with reduced ejection fraction): Code(s): I50.22 - Chronic systolic (congestive) heart failure Category: Medical Plan: Patient currently appears compensated Echocardiogram done back in September 2024 revealed mildly dilated LV with moderately reduced LV ejection fraction at 35-40%, with pseudonormal filling pattern with underlying regional wall motion abnormality consistent with ischemic cardiomyopathy. The left atrium is severely dilated and there is a normally function bioprosthetic mitral valve with mean gradient of 5 mm Hg. There is mild aortic stenosis and regurgitation, normal measured RV systolic pressure and no gross pericardial effusion Continue Furosemide 80 mg QD PRN for edema (3) Ischemic cardiomyopathy: Code(s): I25.5 - Ischemic cardiomyopathy Category: Medical Plan: Hx of 3-vessel coronary disease; S/P CABG x 3 - BARROS to LAD and SVG to OM and distal RCA in December 2018 Patient currently has no acute coronary symptoms Continue Metoprolol 25 mg BID adn Aspirin 81 mg QD His cholesterol levels are all at goal when they were last checked Follow up with cardiology as scheduled (4) S/P MVR (mitral valve replacement): Comment: 29 mm [place] bioprosthetic valve, December 2018 Code(s): Z95.2 - Presence of prosthetic heart valve Category: Surgical Plan: Hx of severe mitral regurgitation Patient reports (+) significant improvement of symptoms since his MVR in 2018 He will be getting repeat echocardiogram in November 2025 for follow up Continue Aspirin 81 mg QD and reinforced routine SBE prophylaxis as per ACC/AHA guidelines (5) ICD (implantable cardioverter-defibrillator) in place: Comment: Single-chamber [employer] ICD for primary prevention Code(s): Z95.810 - Presence of automatic (implantable) cardiac defibrillator Category: Medical Plan: No recent arrhythmias noted His Amiodarone was discontinued by cardiology last month (May 2025) Continue Metoprolol 25 mg BID He is currently being monitored remotedly by cardiology and will continue to do so (6) Mixed hyperlipidemia: Code(s): E78.2 - Mixed hyperlipidemia Category: Medical Plan: Reinforced low cholesterol diet - goal is LDL cholesterol of at least 70 mg/dl or less Will have patient recheck his labs and fasting lipids LUIS FERNANDO as it has been a while since her had his follow up labs checked - he is advised that he can just have his dialysis nurse draw labs from his anterior chest port-a-cath at any time before his dialysis session Continue Risuvastatin 20 mg QD Plan Follow up in 4 months Orders: Orders Comprehensive [place]. Panel Fast 06/28/25 E78.00 - Pure hypercholesterolemia, unspecified TSH reflex Free T4 06/28/25 E78.00 - Pure hypercholesterolemia, unspecified Vitamin B12 and Folate 06/28/25 E53.8 - Deficiency of other specified B group vitamins Magnesium 06/28/25 E83.42 - Hypomagnesemia Phosphorus 06/28/25 N18.30 - Chronic kidney disease, stage 3 unspecified Complete Blood Count Auto Diff 06/28/25 D64.9 - Anemia, unspecified Lipid Panel 06/28/25 E78.00 - Pure hypercholesterolemia, unspecified Vitamin D 25-OH Total 06/28/25 E55.9 - Vitamin D deficiency, unspecified
[2025-06-28 09:51] VITALS: BP 138/74; PULSE 66; O2SAT 100; BMI 21.8
--- OUTSIDE RECORDS SUMMARY | 2025-06-28 10:53 | XMS_ITS | Patient Health Record ---
Author Organization [facility] Address [address] [place] [address] Care Team Providers Care Warning Coordination Meteorologist Name Role Phone Connolly Shoaib Unavailable [phone] Reason For Referral No Information Plan Of Treatment No Information
--- OUTSIDE RECORDS SUMMARY | 2025-06-28 10:53 | XMS_ITS | Encounter Summary ---
Author Organization [facility] Address [address] [facility] [address] [place] [address] Phone Care Team Providers Care Finding Fastener Name Role Phone Emanuel Black MD Primary Care Provider [phone] Reason for Visit * Reason Onset Date Comments Med Refill 03/09/2022 Encounter Details Date Type Department Care Team ([facility] st Contact Info) Description 03/09/2022 Telephone [facility] [address] [facility] [address] [place] [address] Carl Kyle MD Social History [...] once. Please send to the [facility] [place] Thank you documented in this encounter Plan of Treatment Not on file documented as of this encounter Visit Diagnoses Not on filedocumented in this encounter Care Teams Finding Fastener Relationship Specialty Start Date End Date Emanuel Black MD [address] [place], [place] PCP - General Internal Medicine 10/28/22 documented as of this encounter
--- OUTSIDE RECORDS SUMMARY | 2025-06-28 10:53 | XMS_ITS | Patient Health Record ---
Author Organization [facility] Address [address] [facility] [place] [address] Care Team Providers Care Project Management Engineer Name Role Phone Emanuel Black MD Primary Care Provider Celeste Carl Unavailable [phone] Reason For Referral No Information Medications Medication [...] Date Coverage End Date Medicare National Govt [facility] [address] [place] [address] [id number] Andrea Orozco Self - patient is the insured AARP Secondary to Medicare [address] [place] [address] [id number] Andrea Orozco Self - patient is the insured Medical (General) History Medical History History ICD Code Arthritis Heart disease High blood pressure Kidney disease Numbness Poor circulation Vascular grafts Heart valve conditions/replacement Transfusions Surgical History Surgery Date(Month/Year) 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
== END 2025-06-28 11:02 | disposition home or self-care (01) ==
LOC: HO.HMCH 09:37
PROVIDERS: PCP Internal Medicine; Visit Provider Internal Medicine
DX: N18.6 End stage renal disease (principal); Z99.2 Dependence on renal dialysis; I50.22 Chronic systolic (congestive) heart failure; I25.5 Ischemic cardiomyopathy; Z95.2 Presence of prosthetic heart valve; Z95.810 Presence of automatic (implantable) cardiac defibrillator; E78.2 Mixed hyperlipidemia

== ENCOUNTER → 2025-06-28 09:36 | Outpatient (BNVA) | payer MEDICARE, SELFPAY | PROVIDERS: PCP Internal Medicine; Visit Provider Internal Medicine | DX: N18.6 End stage renal disease (principal); Z99.2 Dependence on renal dialysis; I50.22 Chronic systolic (congestive) heart failure; I25.5 Ischemic cardiomyopathy; E78.2 Mixed hyperlipidemia; Z95.2 Presence of prosthetic heart valve; Z95.810 Presence of automatic (implantable) cardiac defibrillator | CPT/HCPCS: 96127; 99212 ==

== ENCOUNTER → 2025-07-10 23:59 | Outpatient (BNV) | payer MEDICARE, SELFPAY ==
--- NOTE | 2025-07-11 14:56 | A.OFFVIS_ITS ---
Intake Visit Reasons: Remote HF monitoring- [employer] Allergies No Known Allergies Allergy (Mild, Verified 06/28/25 10:13) NONE PFSH Medical History (Updated 07/02/25 @ 00:11 by Slade Tolbert MD) Failure of surgically constructed arteriovenous fistula End stage renal failure on dialysis Essential hypertension Mixed hyperlipidemia Ventricular tachycardia Chronic HFrEF (heart failure with reduced ejection fraction) ICD (implantable cardioverter-defibrillator) in place CAD (coronary artery disease) Ischemic cardiomyopathy Congestive heart failure Surgical History History of surgery S/P MVR (mitral valve replacement) S/P CABG x 3 Family History Father No problems noted. Mother No problems noted. Family/Other CVD (cardiovascular disease) Social History Housing: House Alcohol intake: current Alcohol intake frequency: a few times a week Patient Tobacco Use Status: Current everyday Tobacco user Tobacco use type: Cigarette Cigarettes Per Day: 2 e-Cigarette/Vaping Use: Never Used Second Hand Smoke Exposure: Yes service: No Current occupational status: retired Current occupational exposures/hazards: No Cognitive needs: No Hearing needs: No Vision needs: Yes Office Procedures Cardiac Device Check Cardiac Device Check Details: Remote heart failure report generated 07/10/2025. Heart failure parameters are within normal limits [id number] Cardiac Device Interrogation, cardio physiologic monitor Procedure code (CPT) selection complete Assessment & Plan Assessment & Plan (1) ICD (implantable cardioverter-defibrillator) in place: Comment: Single-chamber [employer] ICD for primary prevention Code(s): Z95.810 - Presence of automatic (implantable) cardiac defibrillator Category: Medical Plan: See above Coding Level of Care Code Procedure Only Diagnoses ICD (implantable cardioverter-defibrillator) in place Z95.810 CPT Codes Cardiac Device Check - Cardiac Device 15: [id number] Cardiac Device Interrogation, cardio physiologic monitor ([id number])
== END ==
PROVIDERS: PCP Internal Medicine; Visit Provider Internal Medicine Cardiovascular Disease
DX: Z45.02 Encounter for adjustment and management of automatic implantable cardiac defibrillator (principal)
CPT/HCPCS: 93297

== ENCOUNTER → 2025-07-10 23:59 | Outpatient (BNV) | payer MEDICARE, SELFPAY ==
--- NOTE | 2025-07-11 14:57 | A.OFFVIS_ITS ---
Intake Visit Reasons: Remote ICD check- [employer] Allergies No Known Allergies Allergy (Mild, Verified 06/28/25 10:13) NONE PFSH Medical History (Updated 07/02/25 @ 00:11 by Slade Tolbert MD) Failure of surgically constructed arteriovenous fistula End stage renal failure on dialysis Essential hypertension Mixed hyperlipidemia Ventricular tachycardia Chronic HFrEF (heart failure with reduced ejection fraction) ICD (implantable cardioverter-defibrillator) in place CAD (coronary artery disease) Ischemic cardiomyopathy Congestive heart failure Surgical History History of surgery S/P MVR (mitral valve replacement) S/P CABG x 3 Family History Father No problems noted. Mother No problems noted. Family/Other CVD (cardiovascular disease) Social History Housing: House Alcohol intake: current Alcohol intake frequency: a few times a week Patient Tobacco Use Status: Current everyday Tobacco user Tobacco use type: Cigarette Cigarettes Per Day: 2 e-Cigarette/Vaping Use: Never Used Second Hand Smoke Exposure: Yes service: No Current occupational status: retired Current occupational exposures/hazards: No Cognitive needs: No Hearing needs: No Vision needs: Yes Office Procedures Cardiac Device Check Cardiac Device Check Details: Remote ICD report generated 07/10/2025. ICD function is adequate [id number] Cardiac Interrogation, implant defibrillator w/interim Procedure code (CPT) selection complete Assessment & Plan Assessment & Plan (1) ICD (implantable cardioverter-defibrillator) in place: Comment: Single-chamber [employer] ICD for primary prevention Code(s): Z95.810 - Presence of automatic (implantable) cardiac defibrillator Category: Medical Plan: See above Coding Level of Care Code Procedure Only Diagnoses ICD (implantable cardioverter-defibrillator) in place Z95.810 CPT Codes Cardiac Device Check - Cardiac Device 13: [id number] Cardiac Interrogation, implant defibrillator w/interim ([id number])
== END ==
PROVIDERS: PCP Internal Medicine; Visit Provider Internal Medicine Cardiovascular Disease
DX: Z45.02 Encounter for adjustment and management of automatic implantable cardiac defibrillator (principal)
CPT/HCPCS: 93295

== ENCOUNTER → 2025-08-29 23:59 | Outpatient (BNV) | payer MEDICARE, SELFPAY ==
--- NOTE | 2025-08-31 12:23 | MHC.OFFVIS ---
Intake Visit Reasons: Remote HF monitoring- [employer] Allergies No Known Allergies Allergy (Mild, Verified 06/28/25 10:13) NONE PFSH Medical History (Updated 07/02/25 @ 00:11 by Slade Tolbert MD) Failure of surgically constructed arteriovenous fistula End stage renal failure on dialysis Essential hypertension Mixed hyperlipidemia Ventricular tachycardia Chronic HFrEF (heart failure with reduced ejection fraction) ICD (implantable cardioverter-defibrillator) in place CAD (coronary artery disease) Ischemic cardiomyopathy Congestive heart failure Surgical History History of surgery S/P MVR (mitral valve replacement) S/P CABG x 3 Family History Father No problems noted. Mother No problems noted. Family/Other CVD (cardiovascular disease) Social History Housing: House Alcohol intake: current Alcohol intake frequency: a few times a week Patient Tobacco Use Status: Current everyday Tobacco user Tobacco use type: Cigarette Cigarettes Per Day: 2 e-Cigarette/Vaping Use: Never Used Second Hand Smoke Exposure: Yes service: No Current occupational status: retired Current occupational exposures/hazards: No Cognitive needs: No Hearing needs: No Vision needs: Yes Office Procedures Cardiac Device Check Cardiac Device Check Details: Remote heart failure report generated 08/29/2025. Heart failure markers are significantly elevated. Patient has been followed up by phone call [id number] Cardiac Device Interrogation, cardio physiologic monitor Procedure code (CPT) selection complete Assessment & Plan Assessment & Plan (1) ICD (implantable cardioverter-defibrillator) in place: Comment: Single-chamber [employer] ICD for primary prevention Code(s): Z95.810 - Presence of automatic (implantable) cardiac defibrillator Category: Medical Plan: See above Medications: Discontinued metoprolol tartrate Discontinued Reason: Ancillary Entered New Order 25 mg PO BID 180 tabs 3RF Coding Level of Care Code Procedure Only Diagnoses ICD (implantable cardioverter-defibrillator) in place Z95.810 CPT Codes Cardiac Device Check - Cardiac Device 15: [id number] Cardiac Device Interrogation, cardio physiologic monitor ([id number])
== END ==
PROVIDERS: PCP Internal Medicine; Visit Provider Internal Medicine Cardiovascular Disease
DX: I50.9 Heart failure, unspecified (principal); Z95.810 Presence of automatic (implantable) cardiac defibrillator
CPT/HCPCS: 93297

== ENCOUNTER 2025-10-16 12:22 | Outpatient (AMB) | payer MEDICARE, SELFPAY ==
--- NOTE | 2025-10-16 12:32 | A.OFFPC_ITS ---
Vital Signs 10/16/25 12:34 Height 5 ft 8 in Weight 134 lb 8 oz BMI 20.4 BP 120/80 Blood Pressure Location Lt brachial Position Sitting Pulse 59 Pulse Source Pulse Oximeter Temp 97.1 F Temp Source Temporal Artery Scan Pulse Oximetry (%) 99 Oxygen Delivery Method Room Air Intake Visit Reasons: 4 Months Intake Note: Patient is here to follow up on HTN. Clinical Dietitian Required: No Hardboard Supervisor: Present (Son and Spouse) Accompanied by: Spouse Allergies No Known Allergies Allergy (Mild, Verified 10/19/25 04:23) NONE Medication List - Last Reconciled 10/19/25 by Slade Tolbert MD aspirin (Adult Low Dose Aspirin) 81 mg PO DAILY calcitriol 0.25 mcg PO 3XW calcium carbonate (Calcium Antacid) mg PO TID PRN cholestyramine (with sugar) 4 gram 1 scoop orally 2 times a day; furosemide 80 mg (4 x 20 mg) PO DIRECTED PRN metoprolol tartrate 50 mg PO BID rosuvastatin 20 mg PO DAILY sevelamer carbonate 1,600 mg PO BID tamsulosin 0.4 mg PO BEDTIME tramadol 50 mg PO TID PRN Tobacco use date assessed: 10/16/25 Fall risk assessment: No Falls in past year Last assessed Fall Risk: 10/16/25 Dental Screening Dental Screen Date: 06/28/25 HPI 4 Months HPI Details - The patient is an 80 year old male pre senting with multiple complex medical issues and for follow-up care. - He has a recent diagnosis of renal robert l carcinoma, which was found after a CT scan ordered by his vascular surgeon due to concerns about healing from a prior aorta procedure. - A biopsy performed by Dr. Mcknight in [facility] (2024) confirmed the diagnosis. 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 - During the hospitalization, he was fou nd to be anemic, being down 7 pints of blood, and required urgent aorta surgery for an endoleak - A fractured hip was discovered on the way to surgery, which occurred without a fall and is thought to be a pathologic fracture from the renal cancer. - The patient has been seen by Dr. Le , an health education specialist, for the hip fracture, and Dr. Mcknight, a urologist, for the kidney cancer. - There is confusion regarding the treat ment plan, as the family feels they have not received clear direction from his specialists. - His medical history is significant for end-stage renal disease requiring dialysis three times a week. - He also has a history of benign prosta tic hyperplasia (BPH) and takes tamsulosin, which helps with urination - will need this refilled today - He reports feeling lousy and depressed . [facility] Medical History (Updated 10/19/25 @ 05:49 by Slade Tolbert MD) Pathological fracture of left hip Renal cell carcinoma of right kidney Failure of surgically constructed arteriovenous fistula End stage renal failure on dialysis Essential hypertension Mixed hyperlipidemia Ventricular tachycardia Chronic HFrEF (heart failure with reduced ejection fraction) ICD (implantable cardioverter-defibrillator) in place CAD (coronary artery disease) Ischemic cardiomyopathy Congestive heart failure Surgical History History of surgery S/P MVR (mitral valve replacement) S/P CABG x 3 Family History Father No problems noted. Mother No problems noted. Family/Other CVD (cardiovascular disease) Social History Housing: House Alcohol intake: current Alcohol intake frequency: a few times a week Patient Tobacco Use Status: Current everyday Tobacco user Tobacco use type: Cigarette Cigarette Packs Per Day: 0.25 Cigarettes Per Day: 4 e-Cigarette/Vaping Use: Never Used Second Hand Smoke Exposure: Yes service: No Current occupational status: retired Current occupational exposures/hazards: No Cognitive needs: Yes (Walker) Hearing needs: No Vision needs: Yes Questionnaire PHQ-9 Over the last 2 weeks, how often have you been bothered by any of the following problems? Depression Screening Interpretation: Negative Depression Screening Done: Yes Source: Developed by Drs. Shoaib Martell, Li Ness, Yoan Mccartney and colleagues, with an educational emelia from [employer]. Thrive Questionnaire Date Thrive assessed: 06/28/25 I am a: Patient What is your living situation today?: I have a steady place to live Within the past 12 months, did the food you bought not last and you didn't have the money to get more?: Never true Within the past 12 months, did you worry whether your food would run out before you got money to buy more?: Never true Do you have trouble paying for medicines?: No Do you have trouble getting transportation to medical appointments?: No Do you have trouble paying your heating and electricity bill?: No Do you have trouble taking care of your child, family member or friend?: No Do you have trouble with day-to-day activities such as bathing, preparing meals, shopping, managing finances, etc.?: No Are you currently unemployed and looking for a job?: No Are you interested in more education?: No Please select the resources that you would like help with: None Currently or been in a relationship where the following occur: I choose not to answer THRIVE Score: 0 LOULOU-7 AMB Questionnaire LOULOU-7 Date LOULOU - 7 assessed: 06/28/25 Source: Developed by Drs. Shoaib Martell, Li Ness, Yoan Mccartney and colleagues, with an educational emelia from [employer]. Review of Systems Const Denies chills, Reports fatigue, Denies fever(s) and Denies headache(s) ENT Denies dysphagia, Denies dizziness, Denies otalgia, Denies headache(s), Denies neck pain, Denies odynophagia and Denies sore throat Card Denies chest pain, Denies palpitations and Reports dyspnea on exertion (mild) Resp Denies chest congestion, Denies cough and Reports dyspnea on exertion (mild) GI Denies abdominal pain, Denies constipation, Denies dysphagia, Denies heartburn, Denies diarrhea, Denies nausea, Denies odynophagia and Denies vomiting Denies difficulty urinating, Denies dysuria, Denies nocturia and Denies urinary frequency Musc Denies back pain, Reports arthralgias (left hip) and Denies neck pain Skin/Breast Denies rash Neuro Denies dizziness and Denies headache(s) Endo Reports fatigue and Denies palpitations Physical exam (Primary Care) Vital Signs: Last Vital Signs Temp 97.1 F 10/16/25 12:34 Pulse 59 10/16/25 12:34 BP 120/80 10/16/25 12:34 Pulse Ox 99 10/16/25 12:34 Oxygen Delivery Method Room Air 10/16/25 12:34 BMI result Body Mass Index 20.4 Tobacco/Smoking Status: Tobacco use Status Tobacco use date assessed 10/16/25 10/16/25 12:37 Patient Tobacco Use Status Current everyday Tobacco 10/16/25 12:37 Tobacco use type Cigarette 10/16/25 12:37 e-Cigarette/Vaping Use Never Used 10/16/25 12:37 Depression Screening Interpretation: Negative Thrive Assessment: Date of Thrive Assessment Date Thrive assessed 06/28/25 10/16/25 12:37 Currently or been in a relationship where the following occur: I choose not to answer Const General: no acute distress and alert HENMT Ears: TM's normal bilaterally and EAC's normal Throat: Yes posterior oropharynx normal and Yes tonsils normal (no TP congestion) Neck Neck: Yes supple and No lymphadenopathy Thyroid: Thyroid normal Resp Auscultation: clear to auscultation bilaterally, no rales and no wheezes Cardio Rate: regular rate Rhythm: regular rhythm Heart sounds: no murmurs GI Palpation (GI): Soft to palpation and nontender Auscultation: normal bowel sounds General: Yes no CVA tenderness Back/Spine/Pelvis Back: no CVA tenderness Thoracic/Lumbar Spine: lumbar spinal tenderness (mild) Skin Rashes: no rashes Extrem General: Yes no clubbing, cyanosis or edema Left lower extremity: hip/thigh Details: tenderness Location: of the hip Coding Level of Care Code Est Pt Level 4 (06456) Add On Problem Visit Only Diagnoses End stage renal failure on dialysis N18.6; Z99.2 Chronic HFrEF (heart failure with reduced ejection fraction) I50.22 Ischemic cardiomyopathy I25.5 S/P MVR (mitral valve replacement) Z95.2 ICD (implantable cardioverter-defibrillator) in place Z95.810 Mixed hyperlipidemia E78.2 Renal cell carcinoma of right kidney C64.1 Pathological fracture of left hip due to neoplastic disease, sequela M84.552S Pathology associated with fracture: neoplastic disease Encounter type: sequela Assessment & Plan Assessment & Plan (1) End stage renal failure on dialysis: Code(s): N18.6 - End stage renal disease; Z99.2 - Dependence on renal dialysis Category: Medical Plan: Patient is currently on hemodialysis 3 times a week Follow up with nephrology as scheduled Patient continues to have problems with vascular access for his dialysis - to follow-up with vascular surgery as scheduled (2) Chronic HFrEF (heart failure with reduced ejection fraction): Code(s): I50.22 - Chronic systolic (congestive) heart failure Category: Medical Plan: Patient currently appears compensated Echocardiogram done back in September 2024 revealed mildly dilated LV with moderately reduced LV ejection fraction at 35-40%, with pseudonormal filling pattern with underlying regional wall motion abnormality consistent with ischemic cardiomyopathy. The left atrium is severely dilated and there is a normally function bioprosthetic mitral valve with mean gradient of 5 mm Hg. There is mild aortic stenosis and regurgitation, normal measured RV systolic pressure and no gross pericardial effusion Continue Furosemide 80 mg QD PRN for edema (3) Ischemic cardiomyopathy: Code(s): I25.5 - Ischemic cardiomyopathy Category: Medical Plan: (+) Hx of 3-vessel coronary disease; S/P CABG x 3 - BARROS to LAD and SVG to OM and distal RCA in December 2018 Patient currently has no acute coronary symptoms Continue Metoprolol 25 mg BID adn Aspirin 81 mg QD His cholesterol levels are all at goal when they were last checked Follow up with cardiology as scheduled (4) S/P MVR (mitral valve replacement): Comment: 29 mm [place] bioprosthetic valve, December 2018 Code(s): Z95.2 - Presence of prosthetic heart valve Category: Surgical Plan: Hx of severe mitral regurgitation Patient reports (+) significant improvement of symptoms since his MVR in 2018 He will be getting repeat echocardiogram in November 2025 for follow up Continue Aspirin 81 mg QD and reinforced routine SBE prophylaxis as per ACC/AHA guidelines (5) ICD (implantable cardioverter-defibrillator) in place: Comment: Single-chamber [employer] ICD for primary prevention Code(s): Z95.810 - Presence of automatic (implantable) cardiac defibrillator Category: Medical Plan: No recent arrhythmias noted His Amiodarone was discontinued by cardiology back in May 2025 Continue Metoprolol 25 mg BID He is being monitored remotedly by cardiology (6) Mixed hyperlipidemia: Code(s): E78.2 - Mixed hyperlipidemia Category: Medical Plan: Reinforced low cholesterol diet - goal is LDL cholesterol of at least 70 mg/dl or less Patient states that he had labs done regularly at dialysis but have advised patient that we do not have any of these as they have not been sent or forwarded to us - will try to request for these from [facility] Continue Risuvastatin 20 mg QD (7) Renal cell carcinoma of right kidney: Code(s): C64.1 - Malignant neoplasm of right kidney, except renal pelvis Category: Medical Plan: This was apparently recently discovered after a CT scan ordered by his vascular surgeon due to concerns about healing from a prior aorta procedure Follow up with urology and oncology as scheduled (8) Pathological fracture of left hip: Code(s): M84.452A - Pathological fracture, left femur, initial encounter for fracture Category: Medical Qualifiers: Pathology associated with fracture: neoplastic disease Encounter type: sequela Qualified Code(s): M84.552S - Pathological fracture in neoplastic disease, left femur, sequela Plan: He has not had orthopedic intervention yet on his hip as they are still trying to determine the course of action regarding his hip fracture Recent imaging studies revealed (+) 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
[2025-10-16 12:34] VITALS: BP 120/80; PULSE 59; TEMP 36.2; O2SAT 99; BMI 20.4
== END 2025-10-16 13:41 | disposition home or self-care (01) ==
LOC: HO.HMCH 12:23
PROVIDERS: PCP Internal Medicine; Visit Provider Internal Medicine
DX: I50.22 Chronic systolic (congestive) heart failure (principal); N18.6 End stage renal disease; C64.1 Malignant neoplasm of right kidney, except renal pelvis; Z99.2 Dependence on renal dialysis; I25.5 Ischemic cardiomyopathy; Z95.2 Presence of prosthetic heart valve; Z95.810 Presence of automatic (implantable) cardiac defibrillator; E78.2 Mixed hyperlipidemia; M84.552S Pathological fracture in neoplastic disease, left femur, sequela

== ENCOUNTER → 2025-10-16 12:22 | Outpatient (BNVA) | payer MEDICARE, SELFPAY | PROVIDERS: PCP Internal Medicine; Visit Provider Internal Medicine | DX: N18.6 End stage renal disease (principal); Z99.2 Dependence on renal dialysis; I50.22 Chronic systolic (congestive) heart failure; I25.5 Ischemic cardiomyopathy; Z95.2 Presence of prosthetic heart valve; Z95.810 Presence of automatic (implantable) cardiac defibrillator; E78.2 Mixed hyperlipidemia; C64.1 Malignant neoplasm of right kidney, except renal pelvis; M84.552S Pathological fracture in neoplastic disease, left femur, sequela | CPT/HCPCS: 99212 ==

== ENCOUNTER → 2025-10-24 14:55 | Outpatient (BNV) | payer MEDICARE, SELFPAY | PROVIDERS: PCP Internal Medicine; Visit Provider Internal Medicine Cardiovascular Disease | DX: I50.9 Heart failure, unspecified (principal); Z45.02 Encounter for adjustment and management of automatic implantable cardiac defibrillator | CPT/HCPCS: 93295 ==